=== PATIENT | male | born 1955 | race Caucasian/White ===

== ENCOUNTER → 2018-04-22 11:20 | Outpatient (CLI) | payer OTHER, SELFPAY ==
[2018-04-22 12:22] LABS: Add Manual Diff / Slide Review NO; Basophils Percent Auto 0.8 % (0-2); Eosinophils Percent Auto 2.7 % (2-4); Hematocrit 39.4 % (41-53); Lymphocytes Percent Auto 26.7 % (25-40); Mean Corpuscular HGB Conc 32.9 % (30-36); Mean Corpuscular Hemoglobin 29.2 PG (26-34); Mean Corpuscular Volume 88.7 fL (80-100); Monocytes Percent Auto 10.9 % (3-14); Neutrophils Absolute Auto 4500 /uL (3000-5900); Neutrophils Percent Auto 58.9 % (50-75); Platelet Count 321 X10^3/uL (150-400); Red Blood Cell Count 4.44 X10^6/uL (4.5-5.9); Red Cell Distribution Width 14.4 % (11.6-14.8); White Blood Cell Count 7.6 X10^3/uL (4.5-11.0)
[2018-04-22 12:54] LABS: Alanine Aminotransferase 24 IU/L (21-72); Albumin 4.1 g/dL (3.5-5.0); Albumin Globulin Ratio 1.3 (1.0-2.8); Alkaline Phosphatase 73 U/L (38-126); Aspartate Aminotransferase 30 IU/L (17-59); BUN Creatinine Ratio 14.4 (6-22); Bilirubin Total 0.6 mg/dL (0.2-1.3); Blood Urea Nitrogen 13 mg/dL (9-20); Calcium 9.1 mg/dL (8.4-10.2); Carbon Dioxide 31 mmol/L (22-32); Chloride 101 mmol/L (98-107); Estimated Glomerular Filt Rate > 60.0 mL/min (>60); Globulin 3.1 g/dL (1.7-4.1); Glucose 93 mg/dL (80-110); HEMOLYSIS < 15 (0-50); Potassium 4.3 mmol/L (3.4-5.1); Sodium 141 mmol/L (137-145); Total Protein 7.2 g/dL (6.3-8.2)
[2018-04-22 13:13] LABS: Thyroid Stimulating Hormone 2.56 uIU/mL (0.47-4.68)
== END ==
PROVIDERS: Family Provider Family Medicine; PCP Family Medicine; Visit Provider Internal Medicine
DX: I10 Essential (primary) hypertension (principal); R53.83 Other fatigue; H02.9 Unspecified disorder of eyelid
CPT/HCPCS: 36415; 80053; 84443; 85025; 87255

== ENCOUNTER → 2018-04-22 11:42 | Outpatient (CLI) | payer OTHER, SELFPAY ==
--- NOTE | 2018-04-22 11:43 | DI.RAD.S_ITS ---
PROCEDURE: XR CHEST 2V INDICATIONS: chest congestion TECHNIQUE: 2 views of the chest were acquired. COMPARISON: [facility], , CHEST 2 VIEW, 04/20/2016, 14:49. FINDINGS: Surgical changes and devices: None. Lungs and pleura: No pleural effusions or pneumothorax. Lungs are clear. Mediastinum: Mediastinal contours are normal. Heart size is normal. Bones and chest wall: No suspicious bony abnormalities. Soft tissues appear unremarkable. IMPRESSION: No acute cardiopulmonary disease. Dictated by: Amber Galeas M.D. on 04/22/2018 at 14:18 Approved by: Amber Galeas M.D. on 04/22/2018 at 14:18
== END ==
PROVIDERS: PCP Family Medicine; Visit Provider Internal Medicine
DX: R05 Cough (principal); R09.89 Other specified symptoms and signs involving the circulatory and respiratory systems
CPT/HCPCS: 36415; 71046; 80053; 84443; 85025; 87255

== ENCOUNTER → 2019-06-02 10:00 | Outpatient (CLI) | payer OTHER, SELFPAY ==
[2019-06-02 11:24] LABS: Cholesterol 131 mg/dL (140-199); HDL Cholesterol 43 mg/dL (40-60); LDL Cholesterol Calculated 66 mg/dL (<100); Triglycerides 111 mg/dL (35-150)
== END ==
PROVIDERS: Family Provider Family Medicine; PCP Family Medicine; Visit Provider Internal Medicine Cardiovascular Disease
DX: I25.10 Atherosclerotic heart disease of native coronary artery without angina pectoris (principal); I25.84 Coronary atherosclerosis due to calcified coronary lesion; I10 Essential (primary) hypertension
CPT/HCPCS: 36415; 80061

== ENCOUNTER → 2019-12-03 19:25 | Outpatient (CLI) | payer OTHER, SELFPAY ==
--- NOTE | 2019-12-03 19:29 | DI.RAD.S_ITS ---
PROCEDURE: XR FOOT RT MIN 3V INDICATIONS: r/o stress fracture TECHNIQUE: 3 views of the foot were acquired. COMPARISON: None. FINDINGS: Bones: No fractures or dislocations. No suspicious bony lesions. Plantar calcaneal spur. Diffuse mid foot and hindfoot joint degeneration. Focal marginal lucencies projecting at the first MTP joint. Chronic appearing ossicles projecting at the medial malleolus. Small calcific projecting along the plantar calcaneus appears chronic. Soft tissues: No tibiotalar joint effusion. Achilles tendon appears normal. IMPRESSION: No fracture. If the patient's symptoms do not improve recommend followup radiographs in 10 days to assess for healing sclerosis/occult injury. Or, MRI could be performed for further assessment Dictated by: Gustavo Dahl M.D. on 12/03/2019 at 20:24 Approved by: Gustavo Dahl M.D. on 12/03/2019 at 20:27
== END ==
PROVIDERS: Family Provider Family Medicine; PCP Family Medicine; Referring Provider Physician Assistant; Visit Provider Physician Assistant
DX: M79.671 Pain in right foot (principal); M19.071 Primary osteoarthritis, right ankle and foot; M77.31 Calcaneal spur, right foot
CPT/HCPCS: 73630

== ENCOUNTER → 2020-03-30 08:53 | Outpatient (CLI) | payer OTHER, SELFPAY ==
--- NOTE | 2020-03-30 09:41 | DI.RAD.S_ITS ---
PROCEDURE: XR CHEST 2V INDICATIONS: Cough, fever TECHNIQUE: 2 views of the chest were acquired. COMPARISON: [facility], CR, XR CHEST 2V, 04/22/2018, 11:41. FINDINGS: Surgical changes and devices: None. Lungs and pleura: Moderate-sized consolidative opacity in the right middle lobe. Mild ill-defined opacity in the left upper lobe. Trace right pleural effusion. No pneumothorax. Mediastinum: Fullness in the right hilar region which appears new. Heart size is normal. Bones and chest wall: No suspicious bony abnormalities. Soft tissues appear unremarkable. IMPRESSION: Consolidative opacity in the right middle lobe and ill-defined opacity in the left upper lobe. Findings most compatible with multifocal pneumonia. Fullness in the right hilar region. This could represent adenopathy. Consider CT scan of the chest with IV contrast for further evaluation of the mediastinum. Followup chest x-rays to resolution is recommended. Trace right pleural effusion. Dictated by: Zi Bowers M.D. on 03/30/2020 at 10:42 Approved by: Zi Bowers M.D. on 03/30/2020 at 10:45
[2020-03-30 10:08] LABS: Add Manual Diff / Slide Review NO; Basophils Absolute Auto 100 /uL (0-100); Basophils Percent Auto 0.6 % (0-2); Eosinophils Absolute Auto 0 /uL (0-450); Eosinophils Percent Auto 0.3 % (2-4); Hematocrit 31.5 % (41-53); Hemoglobin 10.9 g/dL (13.5-17.5); Lymphocytes Absolute Auto 600 /uL (1100-4500); Lymphocytes Percent Auto 5.9 % (25-40); Mean Corpuscular HGB Conc 34.5 % (30-36); Mean Corpuscular Hemoglobin 29.1 PG (26-34); Mean Corpuscular Volume 84.3 fL (80-100); Monocytes Absolute Auto 800 /uL (0-900); Monocytes Percent Auto 8.1 % (3-14); Neutrophils Absolute Auto 8800 /uL (1500-7000); Neutrophils Percent Auto 85.1 % (50-75); Platelet Count 281 X10^3/uL (150-400); Red Blood Cell Count 3.74 X10^6/uL (4.5-5.9); Red Cell Distribution Width 15.6 % (11.6-14.8); White Blood Cell Count 10.4 X10^3/uL (4.5-11.0)
[2020-03-30 10:52] LABS: Alanine Aminotransferase 22 IU/L (<50); Albumin 3.6 g/dL (3.5-5.0); Alkaline Phosphatase 112 U/L (38-126); Aspartate Aminotransferase 25 IU/L (17-59); BUN Creatinine Ratio 12.2 (6-22); Bilirubin Total 0.9 mg/dL (0.2-1.3); Blood Urea Nitrogen 11 mg/dL (9-20); Calcium 8.9 mg/dL (8.4-10.2); Carbon Dioxide 26 mmol/L (22-32); Chloride 103 mmol/L (98-107); Estimated Glomerular Filt Rate > 60.0 mL/min (>60); Globulin 3.6 g/dL (1.7-4.1); Glucose 132 mg/dL (80-110); HEMOLYSIS < 15 (0-50); Potassium 3.7 mmol/L (3.4-5.1); Sodium 137 mmol/L (137-145); Total Protein 7.2 g/dL (6.3-8.2)
[2020-03-30 11:21] LABS: TSH w/ Reflex to FT4 2.59 uIU/mL (0.47-4.68)
[2020-03-30 15:08] LABS: HEMOLYSIS < 15 (0-50); Iron 19 ug/dL (49-181)
[2020-03-30 15:18] LABS: Percent Iron Saturation 9 % (20-50); Total Iron Binding Capacity 217 ug/dL (261-462); Transferrin 144 mg/dL (206-381)
[2020-03-31 02:16] LABS: COVID19 Sendout Not Detected (Not Detect)
== END ==
PROVIDERS: Family Provider Family Medicine; PCP Family Medicine; Referring Provider Registered Nurse; Visit Provider Registered Nurse
DX: R05 Cough (principal); R50.9 Fever, unspecified; R53.83 Other fatigue; D64.9 Anemia, unspecified
CPT/HCPCS: 36415; 71046; 80053; 83540; 83550; 84443; 85025; 87635

== ENCOUNTER → 2020-03-30 14:35 | Outpatient (CLI) | payer OTHER, SELFPAY ==
--- NOTE | 2020-03-30 14:37 | DI.CT.S_ITS ---
PROCEDURE: CT CHEST W CON INDICATIONS: Fever, cough, abnormal chest xray TECHNIQUE: After the administration of intravenous contrast, 5 mm thick sections acquired from the pulmonary apices to the posterior costophrenic angles. 1 mm axial lung, 5 mm thick coronal and sagittal reformats and 7 mm axial MIP were acquired. For radiation dose reduction, the following was used: automated exposure control, adjustment of mA and/or kV according to patient size. COMPARISON: [facility], CR, XR CHEST 2V, 04/22/2018, 11:41. [facility], CR, ELBOW 3+ VIEWS RIGHT, 10/30/2017, 16:31. [facility], CR, CHEST 2 VIEW, 04/20/2016, 14:49. [facility], CR, XR CHEST 2V, 03/30/2020, 9:35. FINDINGS: Image quality: Excellent. Lungs and pleura: There are bilateral acute appearing areas of airspace consolidation consistent with patchy bilateral pneumonia, greater on the right than the left. The pneumonia pattern is most prominent at the lateral segment right middle lobe and also involves the medial segment of that lobe, a slight degree of the posterior right lower lobe, a mild degree of the inferior aspect of the left lower lobe, and portions of the left upper lobe near the lingular segment.. No pleural effusions or pneumothorax. Central and peripheral airways are patent and normal in caliber. Mediastinum: Heart size is normal. No pericardial effusion. No mediastinal or hilar adenopathy by size criteria. Thoracic aorta and central pulmonary arteries are normal in size. Esophagus is normal in caliber. No hiatal hernia. Bones and chest wall: No suspicious bony lesions. No vertebral body compression fractures. No axillary or supraclavicular adenopathy by size criteria. Thyroid gland is normal where well seen. Abdomen: Visualized upper abdominal solid organs appear normal. Upper abdominal bowel loops are normal in caliber. IMPRESSION: Bilateral patchy pneumonia, right greater than left, multilobar. No central mass lesion or evidence of pleural effusion is found. No mediastinal or hilar adenopathy is seen. Etiology (bacterial versus viral) is not established by this study. Dictated by: Anthony Palma M.D. on 03/30/2020 at 14:04 Approved by: Anthony Palma M.D. on 03/30/2020 at 14:09
== END ==
PROVIDERS: Family Provider Family Medicine; PCP Family Medicine; Referring Provider Registered Nurse; Visit Provider Registered Nurse
DX: J18.9 Pneumonia, unspecified organism (principal); R93.89 Abnormal findings on diagnostic imaging of other specified body structures; R50.9 Fever, unspecified; R05 Cough; R53.83 Other fatigue; D64.9 Anemia, unspecified
CPT/HCPCS: 36415; 71046; 71260; 80053; 83540; 83550; 84443; 85025; 87635; Q9967

== ENCOUNTER → 2020-04-08 12:33 | Outpatient (CLI) | payer OTHER, SELFPAY ==
--- NOTE | 2020-04-08 12:35 | DI.RAD.S_ITS ---
PROCEDURE: XR CHEST 2V INDICATIONS: f/u pneumonia, persistent cough TECHNIQUE: 2 views of the chest were acquired. COMPARISON: [facility], CT, CT CHEST W CON, 03/30/2020, 14:36. [facility], CR, XR CHEST 2V, 04/22/2018, 11:41. [facility], CR, CHEST 2 VIEW, 04/20/2016, 14:49. [facility], CR, XR CHEST 2V, 03/30/2020, 9:35. FINDINGS: Surgical changes and devices: None. Lungs and pleura: Patchy consolidative left perihilar and right basilar opacities are present. There is improved aeration of the right lung base since 03/30/20. Possible mild improvement in the left perihilar region as well No pleural effusions or pneumothorax. Mediastinum: Mediastinal contours are normal. Heart size is normal. Bones and chest wall: No suspicious bony abnormalities. Soft tissues appear unremarkable. IMPRESSION: Bilateral pneumonia with mildly improved appearance since 03/30/20. No new focal consolidation Dictated by: uGstavo Dahl M.D. on 04/08/2020 at 14:58 Approved by: Gustavo Dahl M.D. on 04/08/2020 at 15:00
== END ==
PROVIDERS: Family Provider Family Medicine; PCP Family Medicine; Referring Provider Family Medicine; Visit Provider Family Medicine
DX: J18.9 Pneumonia, unspecified organism (principal); R05 Cough
CPT/HCPCS: 71046

== ENCOUNTER → 2020-04-18 17:01 | Outpatient (ROUT) | payer OTHER, SELFPAY ==
[2020-04-20 19:06] LABS: COVID19 Sendout Not Detected (Not Detect)
== END ==
PROVIDERS: Family Provider Family Medicine; PCP Family Medicine; Visit Provider Physician Assistant
DX: Z01.818 Encounter for other preprocedural examination (principal)
CPT/HCPCS: 87635

== ENCOUNTER 2020-04-24 13:15 | Emergency (ER) | payer OTHER, SELFPAY ==
[2020-04-24 13:28] VITALS: PULSE 97; RESP 13; O2SAT 100
[2020-04-24 13:30] VITALS: PULSE 98; RESP 24; O2SAT 100
[2020-04-24 13:31] VITALS: BP 173/99; PULSE 104; RESP 26; TEMP 36.6; O2SAT 99; BMI 27.1
--- NOTE | 2020-04-24 13:32 | ED.SOB ---
HPI - SOB/Dyspnea <Rochelle PruittAILEEN - Last Filed: 04/24/20 20:50> General Chief Complaint: Shortness of Breath/Dyspnea Stated Complaint: Trouble breathing can't catch his breath Time Seen by Provider: 04/24/20 13:21 History of Present Illness HPI Narrative: 64yo male with a history of non-Hodgkin's lymphoma, WPW which resolved with ablation, and recent pneumonia, presents to the emergency department for worsening shortness of breath for the past 2-3 days. Patient states he had a course of azithromycin and then completed course of amoxicillin and doxycycline, after completion the antibiotics about a week ago he was feeling better. However, he noticed increasing shortness of breath that started gradually over the past 2-3 days and has been worsening. He denies any fevers, chest pain, dizziness, abdominal pain, blood in his stool, nausea, vomiting, diarrhea, or any other concerns. Patient states they found incidental anemia and he was scheduled to have an endoscopy and colonoscopy yesterday but did not undergo this procedure as his insurance did not approve it at this time. Patient states he has been taking iron supplements. Upon review of previous visit notes from last month, patient has had ?respiratory issues ?since 2014 and has been taking Xyzal, patient was also referred to [facility] in [place]. Related Data Home Medications Medication Instructions Recorded Confirmed cholecalciferol (vitamin D3) 2 - 3 tab PO Q DAY #0 09/26/17 04/08/20 [Vitamin D3] ibuprofen-diphenhydramine HCl 1 cap PO HSP PRN #0 09/26/17 04/08/20 [Ibuprofen PM] multivitamin [Multiple Vitamins] 1 tab PO QDAY #0 09/26/17 04/08/20 Previous Rx's Medication Instructions Recorded diltiazem HCl 240 mg 240 mg PO Q DAY #90 cap 02/05/19 capsule,extended release 24 hr acyclovir 400 mg tablet 400 mg PO BID #180 tab 06/25/19 amoxicillin-potassium clavulanate 2 tab PO BID #28 tab 04/08/20 1,000 mg-62.5 mg tablet,ext.rel 12hr doxycycline hyclate 100 mg capsule 100 mg PO BID #14 cap 04/08/20 prednisone 50 mg PO DAILY 4 Days #4 tab 04/24/20 Allergies Allergy/AdvReac Type Severity Reaction Status Date / Time No Known Drug Allergies Allergy Verified 04/24/20 13:36 Review of Systems <AILEEN Mendosa - Last Filed: 04/24/20 20:50> Review of Systems Narrative: REVIEW OF SYSTEMS: GENERAL: Denies fevers. HENT: No head trauma or hearing loss. EYES: No vision changes. CARDIOVASCULAR: No chest pain or syncope. RESPIRATORY: Reports shortness of breath and continue dry cough, see HPI. GASTROINTESTINAL: No nausea, vomiting, diarrhea, or constipation. MUSCULOSKELETAL: No weakness or injury. INTEGUMENTARY: No rash, lesions, or pruritus. NEURO: No memory loss, or confusion. Patient History <AILEEN Mendosa - Last Filed: 04/24/20 20:50> Medical History Anxiety (Chronic 2015) Chronic cough (Chronic) Collapsed lung (Resolved 1974) Colon polyps (Resolved ~2008) Depression (Chronic 2015) Fracture of right upper extremity (Resolved ~1964) Hayfever (Chronic) Herpes (Chronic ~1979) Hypertension (Chronic 2005) Kidney stones (Resolved 1991) Measles (Resolved) Mumps (Resolved) NHL (non-Hodgkin's lymphoma) (Resolved 1999) Right foot pain (Acute) Skin problem (Chronic 2004) Sleep apnea (Chronic) WPW (Sxriy-Hcwmmrncm-Ygzde syndrome) (Chronic 2009) Surgical History Anesthesia (Resolved) History of cardiac radiofrequency ablation (RFA) (Resolved 2009) History of colonoscopy (Resolved ~2008) History of surgery on arm (Resolved ~1964) Status post appendectomy (Resolved ~1959) Family History Child Cancer Brain cancer Father Cancer Cancer of jaw bone Grandfather Cancer Brain cancer Grandmother Cancer Grandmother Heart disease Heart attack Grandfather No problems noted. Mother Stroke Social History marital status: unknown household members: none occupational status: employed Smoking Status: Never smoker alcohol intake: current substance use type: does not use Smoking Status: Never smoker Exam <AILEEN Mendosa - Last Filed: 04/24/20 20:50> Initial Vital Signs Initial Vital Signs: Vital Signs Pulse Rate 97 H 04/24/20 13:28 Respiratory Rate 13 04/24/20 13:28 Pulse Oximetry 100 04/24/20 13:28 PHYSICAL EXAMINATION: GENERAL: Well groomed, alert, and cooperative. Answers questions promptly and appropriately. Vital signs noted. HENT: Normocephalic, atraumatic. EYES: Conjunctiva pink, sclera white, no periorbital swelling. No discharge. CHEST: Normal to inspection and without deformities. CARDIOVASCULAR: S1 and S2 sounds normal. Regular rate and rhythm, no murmurs, clicks, or bruits. RESPIRATORY: Normal respiratory rate, trachea midline, airway patent. No stridor, nasal flaring or accessory muscle use. Able to speak in full sentences. Lungs are clear in all sanchez without wheeze, rhonchi, or crackles. Occasional dry cough heard throughout examination. Patient initially appears to be breathing quickly while nurse's describing story, however, patient is able to talk in full sentences once he starts to describe his history. MUSCULOSKELETAL: Normal gait and coordination. Equal tone and mass bilaterally. EXTREMITIES: Moves all extremities. SKIN: Warm, dry, soft, appropriate color for ethnicity. No lesions, rashes, or wounds to visualized areas. NEURO: Alert and Oriented X 3. Good coordination. No ataxia or cognitive issues. PSYCH: Appropriate affect and mood. <Lucille Greenberg DO - Last Filed: 04/25/20 07:24> Initial Vital Signs Initial Vital Signs: Vital Signs Pulse Rate 97 H 04/24/20 13:28 Respiratory Rate 13 04/24/20 13:28 Pulse Oximetry 100 04/24/20 13:28 Scores <AILEEN Mendosa - Last Filed: 04/24/20 20:50> PERC Score Age greater than or equal to 50 years: Yes Heart rate greater than or equal to 100 bpm: Yes Room Air O2 Sat less than 95%: No Unilateral leg swelling: No Recent trauma or surgery: No Hemoptysis: No Prior PE or DVT: No Hormone Use: No Total PERC Score: 2 Wells' Criteria for PE Clinical signs and symptoms of DVT: Yes PE is #1 Dx or equally likely: Yes Heart rate > 100: Yes Immobilization at least 3 days or surg in previous 4 weeks: No History of PE or DVT: No Hemoptysis: No Malignancy w/Treatment within 6 months or palliative: No Wells' PE Score total: 7.5 Course <Rochelle HiAILEEN pacheco - Last Filed: 04/24/20 20:50> Course Course Narrative: 1400: CT angio PE study ordered due to high well's criteria score, tachycardia within is a presentation, and shortness of breath, as well as clear lung examination and lack of fever which increases concerns for PE 1546: Patient reported all improvement after administration of albuterol inhaler. Is able to ambulate around the department without decreasing saturations, did note some dyspnea with exertion but was able to talk the entire time while walking at adequate pace. Orders Ordered: Discontinued Medications Albuterol (Ventolin Hfa) 2 puff INH NOW ONE Stop: 04/24/20 14:51 Last Admin: 04/24/20 14:54 Dose: Not Given Documented by: LEATHA Albuterol (Ventolin Hfa Prepack) 1 box MISC SEEINSTR ONE Stop: 04/24/20 14:54 Last Admin: 04/24/20 14:57 Dose: 1 box Documented by: LEATHA Sodium Chloride (Normal Saline 0.9%) 1,000 mls @ 1,000 mls/hr IV BOLUS PRN PRN Reason: Fluid replacement Last Infusion: 04/24/20 15:52 Dose: 0 mls/hr Documented by: Admin: 04/24/20 13:41 Dose: 1,000 mls/hr Documented by: ZEKE Prednisone (Deltasone) 40 mg PO NOW ONE Stop: 04/24/20 15:46 Last Admin: 04/24/20 15:52 Dose: 40 mg Documented by: LEDA Consultations Consultation #1: Patient staffed with Dr. Greenberg, discussed test, test results, plan of care. Vital Signs Vital signs: Vital Signs - 8 hr 04/24/20 13:28 04/24/20 13:30 04/24/20 13:31 Temperature 97.8 F Pulse Rate 97 H 98 H 104 H Respiratory Rate 13 24 26 H Blood Pressure 173/99 H Pulse Oximetry 100 100 99 04/24/20 15:06 04/24/20 15:52 04/24/20 16:19 Temperature 98.3 F Pulse Rate 99 H 92 H Respiratory Rate 20 18 Blood Pressure 137/76 Pulse Oximetry 99 98 <Lucille Greenberg DO - Last Filed: 04/25/20 07:24> Orders Ordered: Discontinued Medications Albuterol (Ventolin Hfa) 2 puff INH NOW ONE Stop: 04/24/20 14:51 Last Admin: 04/24/20 14:54 Dose: Not Given Documented by: LEATHA Albuterol (Ventolin Hfa Prepack) 1 box MISC SEEINSTR ONE Stop: 04/24/20 14:54 Last Admin: 04/24/20 14:57 Dose: 1 box Documented by: LEATHA Sodium Chloride (Normal Saline 0.9%) 1,000 mls @ 1,000 mls/hr IV BOLUS PRN PRN Reason: Fluid replacement Last Infusion: 04/24/20 15:52 Dose: 0 mls/hr Documented by: Admin: 04/24/20 13:41 Dose: 1,000 mls/hr Documented by: ZEKE Prednisone (Deltasone) 40 mg PO NOW ONE Stop: 04/24/20 15:46 Last Admin: 04/24/20 15:52 Dose: 40 mg Documented by: LEDA Vital Signs Vital signs: Vital Signs - 8 hr 04/24/20 13:28 04/24/20 13:30 04/24/20 13:31 Temperature 97.8 F Pulse Rate 97 H 98 H 104 H Respiratory Rate 13 24 26 H Blood Pressure 173/99 H Pulse Oximetry 100 100 99 04/24/20 15:06 04/24/20 15:52 04/24/20 16:19 Temperature 98.3 F Pulse Rate 99 H 92 H Respiratory Rate 20 18 Blood Pressure 137/76 Pulse Oximetry 99 98 MDM - SOB/Dyspnea <AILEEN Mendosa - Last Filed: 04/24/20 20:50> Medical Records Attestation: I reviewed the patient's medical records. Lab Data Attestation: I reviewed the patient's lab results. Result diagrams: 04/24/20 13:30 04/24/20 13:30 Labs: Lab Results 04/24/20 04/24/20 04/24/20 Range/Units 13:30 13:30 13:30 WBC 8.3 (4.5-11.0) X10^3/uL RBC 4.05 L (4.5-5.9) X10^6/uL Hgb 11.1 L (13.5-17.5) g/dL Hct 33.9 L (41-53) % MCV 83.6 (80-100) fL MCH 27.4 (26-34) PG MCHC 32.8 (30-36) % RDW 16.4 H (11.6-14.8) % Plt Count 361 (150-400) X10^3/uL Neut % (Auto) 48.4 L (50-75) % Lymph % (Auto) 36.3 (25-40) % [place] % (Auto) 13.1 (3-14) % Eos % (Auto) 0.9 L (2-4) % Baso % (Auto) 1.3 (0-2) % Neut # (Auto) 4000 (0402-9184) /uL Lymph # (Auto) 3000 (1782-6479) /uL [place] # (Auto) 1100 H (0-900) /uL Eos # (Auto) 100 (0-450) /uL Baso # (Auto) 100 (0-100) /uL Sodium (137-145) mmol/L Potassium (3.4-5.1) mmol/L Chloride (98-107) mmol/L Carbon Dioxide (22-32) mmol/L BUN (9-20) mg/dL Creatinine (0.66-1.25) mg/dL Estimated GFR (>60) mL/min BUN/Creatinine Ratio (6-22) Glucose (80-110) mg/dL Lactate (0.7-2.1) mmol/L Calcium (8.4-10.2) mg/dL Magnesium 2.0 (1.6-2.3) mg/dL Total Bilirubin (0.2-1.3) mg/dL AST (17-59) IU/L ALT (<50) IU/L Alkaline Phosphatase (38-126) U/L Total Creatine Kinase 34 L (55-170) U/L CK-MB (CK-2) TNP CK-MB (CK-2) Rel Index TNP Troponin I < 0.012 (0.01-0.034) ng/mL Total Protein (6.3-8.2) g/dL Albumin (3.5-5.0) g/dL Globulin (1.7-4.1) g/dL Albumin/Globulin Ratio (1.0-2.8) Procalcitonin < 0.05 (<0.5) ng/mL 04/24/20 04/24/20 Range/Units 13:30 13:30 WBC (4.5-11.0) X10^3/uL RBC (4.5-5.9) X10^6/uL Hgb (13.5-17.5) g/dL Hct (41-53) % MCV (80-100) fL MCH (26-34) PG MCHC (30-36) % RDW (11.6-14.8) % Plt Count (150-400) X10^3/uL Neut % (Auto) (50-75) % Lymph % (Auto) (25-40) % [place] % (Auto) (3-14) % Eos % (Auto) (2-4) % Baso % (Auto) (0-2) % Neut # (Auto) (1391-8997) /uL Lymph # (Auto) (8514-1363) /uL [place] # (Auto) (0-900) /uL Eos # (Auto) (0-450) /uL Baso # (Auto) (0-100) /uL Sodium 138 (137-145) mmol/L Potassium 4.0 (3.4-5.1) mmol/L Chloride 102 (98-107) mmol/L Carbon Dioxide 27 (22-32) mmol/L BUN 13 (9-20) mg/dL Creatinine 0.79 (0.66-1.25) mg/dL Estimated GFR > 60.0 (>60) mL/min BUN/Creatinine Ratio 16.5 (6-22) Glucose 128 H (80-110) mg/dL Lactate 1.5 (0.7-2.1) mmol/L Calcium 9.9 (8.4-10.2) mg/dL Magnesium (1.6-2.3) mg/dL Total Bilirubin 0.7 (0.2-1.3) mg/dL AST 25 (17-59) IU/L ALT 16 (<50) IU/L Alkaline Phosphatase 105 (38-126) U/L Total Creatine Kinase (55-170) U/L CK-MB (CK-2) CK-MB (CK-2) Rel Index Troponin I (0.01-0.034) ng/mL Total Protein 7.8 (6.3-8.2) g/dL Albumin 4.2 (3.5-5.0) g/dL Globulin 3.6 (1.7-4.1) g/dL Albumin/Globulin Ratio 1.2 (1.0-2.8) Procalcitonin (<0.5) ng/mL Urine Dip Bedside Urine Glucose Negative Bedside Urine Bilirubin - Negative Bedside Urine Ketone - Negative Urine Specific [place] 1.010 Bedside Urine Occult Blood - Negative Bedside Urine pH 8.0 Bedside Urine Protein - Negative Bedside Urine Urobilinogen - Negative Bedside Urine Nitrite - Negative Bedside Urine Leukocytes - Negative Esterase Imaging Data CTA: Radiologist's Impression: [address] [address] [address] Scan Report Signed Patient: Rahul Tabares LMR#: [id number] : 7Acct:[id number] Age/Sex: 64 / MDate of Service: 04/24/20 Loc: ED Accession Number: [id number] Procedure: CT angio chest PE protocol Ordering Provider: Rochelle Pruitt PROCEDURE: CT ANGIO CHEST PE PROTOCOL INDICATIONS: SOB, non-Hodgkin's TECHNIQUE: After the administration of intravenous contrast, 2 mm thick sections acquired from the pulmonary apices to the posterior costophrenic angles. 3-dimensional maximum intensity projection (MIP) coronal and sagittal reformats were then acquired through the thorax. For radiation dose reduction, the following was used: automated exposure control, adjustment of mA and/or kV according to patient size. COMPARISON: Merged With [facility], CT, CT CHEST W CON, 03/30/2020, 14:36. FINDINGS: Image quality: Diagnostic Pulmonary arteries: Pulmonary arteries are normal in size, and demonstrate no intraluminal filling defects to suggest central pulmonary embolism. Lungs and pleura: The large area of consolidation within the right middle lobe has nearly completely resolved with a small amount of residual consolidation present. The previously seen area of consolidation within the left upper lobe has significantly decreased in size with minimal scarring and or tree-in-bud nodularity present remaining that extends along the anterolateral aspect of the left upper lobe into the lingula. No new areas of consolidation are identified. There is no lung mass. Mediastinum: Heart size is normal, without pericardial effusion. Thoracic aorta is normal in caliber and enhancement. Esophagus is normal in caliber, without hiatal hernia. Multiple subcentimeter lymph nodes are evident in the bilateral axillary regions. Similar sized lymph nodes are seen within the mediastinal and hilar locations, as well. These lymph nodes are smaller in size when compared to the prior exam. Bones and chest wall: No suspicious bony lesions. Ribs and thoracic spine appear intact throughout. Thyroid gland is not enlarged or adequately characterized. No axillary or supraclavicular adenopathy. Abdomen: There are small to moderate-sized lymph nodes identified within the upper retroperitoneum and karan caval region, which are of uncertain clinical significance. These have not significantly changed since the previous examination. There is a small focus of low attenuation identified involving the right hepatic lobe that probably represents a cyst, but is not adequately characterized. Otherwise, the included portions of the upper abdomen are within normal limits. IMPRESSION: 1. No evidence of pulmonary emboli. 2. Resolving consolidation within at the right middle lobe and left upper lobe likely represents resolving pneumonia. No new areas of consolidation are evident. 3. No lung masses. 4. Numerous subcentimeter lymph nodes within the axillary regions and mediastinum are of uncertain clinical significance and have decreased in size since the prior study. There also are mildly prominent lymph nodes evident within the upper retroperitoneum and portacaval region, which are unchanged. Dictated by: Reid Christopher M.D. on 04/24/2020 at 13:30 Approved by: Reid Christopher M.D. on 04/24/2020 at 13:38 Chest x-ray: Radiologist's Impression: [address] [address] XRay Report Signed Patient: Rahul Tabares LMR#: [id number] : 7Acct:[id number] Age/Sex: 64 / MDate of Service: 04/24/20 Loc: ED Accession Number: [id number] Procedure: XR chest 1V Ordering Provider: Rochelle Pruitt PROCEDURE: XR CHEST 1V INDICATIONS: Shortness of breath TECHNIQUE: One view of the chest was acquired. COMPARISON: Merged With [facility], CT, CT CHEST W CON, 03/30/2020, 14:36. Merged With [facility], CR, XR CHEST 2V, 04/08/2020, 12:26. FINDINGS: Surgical changes and devices: None. Lungs and pleura: There is an area of consolidation identified at the right lung base, which is smaller on the current study, but remains present. Interstitial prominence within the perihilar regions is present. There is no effusion or pneumothorax. Mediastinum: Mediastinal contours appear normal. Heart size is normal. Bones and chest wall: No suspicious bony lesions. Overlying soft tissues appear unremarkable. IMPRESSION: Right basilar consolidation is less conspicuous on the current exam and may represent resolving atelectasis. Superimposed new infection cannot be excluded. Dictated by: Reid Christopher M.D. on 04/24/2020 at 13:21 Approved by: Reid Christopher M.D. on 04/24/2020 at 13:25 ECG Data Interpretation: 1339: Sinus rhythm, rate 88, MA interval 142, QTC 442. No ST elevation or ST depression. T-wave inversion noted in V1. No ectopy. EKG also viewed by Dr. Greenberg per protocol. MDM Narrative Medical decision making narrative: 64yo male with history of non-Hodgkin's, seasonal allergies, and resolving pneumonia, presents emergency department for worsening shortness of breath over the past few days. Differential includes resolving pneumonia versus reactive airway disease as patient reports shortness of breath that is worse with activity, minor relief with albuterol inhaler, ambulatory trial without significant dyspnea or decreased oxygen saturation. Less likely worsening pneumonia due to lack of clinical symptoms such as fever, elevated WBC, worsening productive cough, or feelings of malaise. Less likely cardiac in etiology due to negative EKG, negative troponin, non-remarkable cardiac silhouette on chest x-ray. Less likely PE as CTA is negative for pulmonary embolism. Patient was given an albuterol inhaler and steroids given recent allergies and shortness of breath. He was encouraged to follow up with his primary care provider in 1-2 weeks for further evaluation. Strict return precautions given for new or worsening symptoms. Patient agreed to plan of care verbalized understanding. <Lucille Greenberg, DO - Last Filed: 04/25/20 07:24> Lab Data Attestation: I reviewed the patient's lab results. Labs: Lab Results 04/24/20 04/24/20 04/24/20 Range/Units 13:30 13:30 13:30 WBC 8.3 (4.5-11.0) X10^3/uL RBC 4.05 L (4.5-5.9) X10^6/uL Hgb 11.1 L (13.5-17.5) g/dL Hct 33.9 L (41-53) % MCV 83.6 (80-100) fL MCH 27.4 (26-34) PG MCHC 32.8 (30-36) % RDW 16.4 H (11.6-14.8) % Plt Count 361 (150-400) X10^3/uL Neut % (Auto) 48.4 L (50-75) % Lymph % (Auto) 36.3 (25-40) % [place] % (Auto) 13.1 (3-14) % Eos % (Auto) 0.9 L (2-4) % Baso % (Auto) 1.3 (0-2) % Neut # (Auto) 4000 (9562-9697) /uL Lymph # (Auto) 3000 (0378-3743) /uL [place] # (Auto) 1100 H (0-900) /uL Eos # (Auto) 100 (0-450) /uL Baso # (Auto) 100 (0-100) /uL Sodium (137-145) mmol/L Potassium (3.4-5.1) mmol/L Chloride (98-107) mmol/L Carbon Dioxide (22-32) mmol/L BUN (9-20) mg/dL Creatinine (0.66-1.25) mg/dL Estimated GFR (>60) mL/min BUN/Creatinine Ratio (6-22) Glucose (80-110) mg/dL Lactate (0.7-2.1) mmol/L Calcium (8.4-10.2) mg/dL Magnesium 2.0 (1.6-2.3) mg/dL Total Bilirubin (0.2-1.3) mg/dL AST (17-59) IU/L ALT (<50) IU/L Alkaline Phosphatase (38-126) U/L Total Creatine Kinase 34 L (55-170) U/L CK-MB (CK-2) TNP CK-MB (CK-2) Rel Index TNP Troponin I < 0.012 (0.01-0.034) ng/mL Total Protein (6.3-8.2) g/dL Albumin (3.5-5.0) g/dL Globulin (1.7-4.1) g/dL Albumin/Globulin Ratio (1.0-2.8) Procalcitonin < 0.05 (<0.5) ng/mL 04/24/20 04/24/20 Range/Units 13:30 13:30 WBC (4.5-11.0) X10^3/uL RBC (4.5-5.9) X10^6/uL Hgb (13.5-17.5) g/dL Hct (41-53) % MCV (80-100) fL MCH (26-34) PG MCHC (30-36) % RDW (11.6-14.8) % Plt Count (150-400) X10^3/uL Neut % (Auto) (50-75) % Lymph % (Auto) (25-40) % [place] % (Auto) (3-14) % Eos % (Auto) (2-4) % Baso % (Auto) (0-2) % Neut # (Auto) (8586-8010) /uL Lymph # (Auto) (5873-2449) /uL [place] # (Auto) (0-900) /uL Eos # (Auto) (0-450) /uL Baso # (Auto) (0-100) /uL Sodium 138 (137-145) mmol/L Potassium 4.0 (3.4-5.1) mmol/L Chloride 102 (98-107) mmol/L Carbon Dioxide 27 (22-32) mmol/L BUN 13 (9-20) mg/dL Creatinine 0.79 (0.66-1.25) mg/dL Estimated GFR > 60.0 (>60) mL/min BUN/Creatinine Ratio 16.5 (6-22) Glucose 128 H (80-110) mg/dL Lactate 1.5 (0.7-2.1) mmol/L Calcium 9.9 (8.4-10.2) mg/dL Magnesium (1.6-2.3) mg/dL Total Bilirubin 0.7 (0.2-1.3) mg/dL AST 25 (17-59) IU/L ALT 16 (<50) IU/L Alkaline Phosphatase 105 (38-126) U/L Total Creatine Kinase (55-170) U/L CK-MB (CK-2) CK-MB (CK-2) Rel Index Troponin I (0.01-0.034) ng/mL Total Protein 7.8 (6.3-8.2) g/dL Albumin 4.2 (3.5-5.0) g/dL Globulin 3.6 (1.7-4.1) g/dL Albumin/Globulin Ratio 1.2 (1.0-2.8) Procalcitonin (<0.5) ng/mL Urine Dip Bedside Urine Glucose Negative Bedside Urine Bilirubin - Negative Bedside Urine Ketone - Negative Urine Specific [place] 1.010 Bedside Urine Occult Blood - Negative Bedside Urine pH 8.0 Bedside Urine Protein - Negative Bedside Urine Urobilinogen - Negative Bedside Urine Nitrite - Negative Bedside Urine Leukocytes - Negative Esterase ECG Data Attestation: I personally reviewed and interpreted this ECG as follows: Prior ECG tracings: not available for review Interpretation: Normal sinus rhythm rate 87 p.r. interval 142 QRS [address] elevation depression or T-wave inversion Discharge Plan Departure Patient Disposition: Home Clinical Impression: Mild intermittent reactive airway disease Discharge Date/Time: 04/24/20 16:16 Instructions: DI for Reactive Airway Disease-Adult Activity Restrictions/Additional Instructions: Thank you for entrusting me with your care today. As discussed, your chest x-ray and CT showed resolving pneumonia in your right middle and left upper lobes of your lungs. No antibiotics are indicated at this time. No pulmonary emboli/blood clots. Lymph nodes that appeared to have been decrease in size from prior study are noted and your axillary regions (armpits), lymph nodes that are unchanged from prior study noted in your abdominal area. I suspect your shortness of breath with activity is related to the resolving pneumonia and or a small component of reactive airway disease. I have given you an inhaler, use this as needed for shortness of breath or cough. I have also given you steroid to take for the next 5 days which will help with shortness of breath. You may continue to have a dry cough for the next few weeks. Your prescription was sent to [facility] in [place]. Is important that you follow-up with your primary care provider in 1-2 weeks for further evaluation and continue monitoring and treatment of your condition. Return to the emergency department for any new or worsening symptoms such as severe chest pain, shortness of breath, syncope, dizziness, high fevers, or any other concerns. Prescriptions: New prednisone 50 mg tablet 50 mg PO DAILY 4 Days Qty: 4 RF: 0 No Action multivitamin [Multiple Vitamins] 1 EACH tablet 1 tab PO QDAY Qty: 0 RF: 0 cholecalciferol (vitamin D3) [Vitamin D3] 2,000 UNIT capsule 2 - 3 tab PO Q DAY Qty: 0 RF: 0 ibuprofen-diphenhydramine HCl [Ibuprofen PM] 200 MG/25 MG capsule 1 cap PO HSP PRNQty: 0 RF: 0 diltiazem HCl 240 mg capsule,extended release 24hr 240 mg PO Q DAY Qty: 90 RF: 1 acyclovir 400 mg tablet 400 mg PO BID Qty: 180 RF: 1 amoxicillin-pot clavulanate 1,000-62.5 mg tablet extended release 12 hr 2 tab PO BID Qty: 28 RF: 0 doxycycline hyclate 100 mg capsule 100 mg PO BID Qty: 14 RF: 0 Referrals: Laura Lackey MD [Primary Care Provider] - <Lucille Greenberg DO - Last Filed: 04/25/20 07:24> Cosign ED Attending Cosignature Attestation: I was immediately available in the department for consultation. Documentation has been reviewed. I agree with assessment and plan.
[2020-04-24] MEDS: SODIUM CHLORIDE 0.9% 1,000 ML 1000 ML IV (13:41)
[2020-04-24 13:47] LABS: Lactate (Lactic Acid) 1.5 mmol/L (0.7-2.1)
[2020-04-24 13:51] LABS: Creatine Kinase 34 U/L (55-170)
[2020-04-24 13:52] LABS: Alanine Aminotransferase 16 IU/L (<50); Albumin 4.2 g/dL (3.5-5.0); Albumin Globulin Ratio 1.2 (1.0-2.8); Alkaline Phosphatase 105 U/L (38-126); Aspartate Aminotransferase 25 IU/L (17-59); BUN Creatinine Ratio 16.5 (6-22); Bilirubin Total 0.7 mg/dL (0.2-1.3); Blood Urea Nitrogen 13 mg/dL (9-20); Calcium 9.9 mg/dL (8.4-10.2); Carbon Dioxide 27 mmol/L (22-32); Chloride 102 mmol/L (98-107); Estimated Glomerular Filt Rate > 60.0 mL/min (>60); Globulin 3.6 g/dL (1.7-4.1); Glucose 128 mg/dL (80-110); HEMOLYSIS 23 (0-50); Sodium 138 mmol/L (137-145); Total Protein 7.8 g/dL (6.3-8.2)
--- NOTE | 2020-04-24 13:54 | DI.CT.S_ITS ---
PROCEDURE: CT ANGIO CHEST PE PROTOCOL INDICATIONS: SOB, non-Hodgkin's TECHNIQUE: After the administration of intravenous contrast, 2 mm thick sections acquired from the pulmonary apices to the posterior costophrenic angles. 3-dimensional maximum intensity projection (MIP) coronal and sagittal reformats were then acquired through the thorax. For radiation dose reduction, the following was used: automated exposure control, adjustment of mA and/or kV according to patient size. COMPARISON: [facility], CT, CT CHEST W CON, 03/30/2020, 14:36. FINDINGS: Image quality: Diagnostic Pulmonary arteries: Pulmonary arteries are normal in size, and demonstrate no intraluminal filling defects to suggest central pulmonary embolism. Lungs and pleura: The large area of consolidation within the right middle lobe has nearly completely resolved with a small amount of residual consolidation present. The previously seen area of consolidation within the left upper lobe has significantly decreased in size with minimal scarring and or tree-in-bud nodularity present remaining that extends along the anterolateral aspect of the left upper lobe into the lingula. No new areas of consolidation are identified. There is no lung mass. Mediastinum: Heart size is normal, without pericardial effusion. Thoracic aorta is normal in caliber and enhancement. Esophagus is normal in caliber, without hiatal hernia. Multiple subcentimeter lymph nodes are evident in the bilateral axillary regions. Similar sized lymph nodes are seen within the mediastinal and hilar locations, as well. These lymph nodes are smaller in size when compared to the prior exam. Bones and chest wall: No suspicious bony lesions. Ribs and thoracic spine appear intact throughout. Thyroid gland is not enlarged or adequately characterized. No axillary or supraclavicular adenopathy. Abdomen: There are small to moderate-sized lymph nodes identified within the upper retroperitoneum and karan caval region, which are of uncertain clinical significance. These have not significantly changed since the previous examination. There is a small focus of low attenuation identified involving the right hepatic lobe that probably represents a cyst, but is not adequately characterized. Otherwise, the included portions of the upper abdomen are within normal limits. IMPRESSION: 1. No evidence of pulmonary emboli. 2. Resolving consolidation within at the right middle lobe and left upper lobe likely represents resolving pneumonia. No new areas of consolidation are evident. 3. No lung masses. 4. Numerous subcentimeter lymph nodes within the axillary regions and mediastinum are of uncertain clinical significance and have decreased in size since the prior study. There also are mildly prominent lymph nodes evident within the upper retroperitoneum and portacaval region, which are unchanged. Dictated by: Reid Christopher M.D. on 04/24/2020 at 13:30 Approved by: Reid Christophre M.D. on 04/24/2020 at 13:38
[2020-04-24 14:04] LABS: Troponin I < 0.012 ng/mL (0.01-0.034)
[2020-04-24 14:10] LABS: Add Manual Diff / Slide Review NO; Basophils Absolute Auto 100 /uL (0-100); Basophils Percent Auto 1.3 % (0-2); Eosinophils Absolute Auto 100 /uL (0-450); Eosinophils Percent Auto 0.9 % (2-4); Hematocrit 33.9 % (41-53); Hemoglobin 11.1 g/dL (13.5-17.5); Lymphocytes Absolute Auto 3000 /uL (1100-4500); Lymphocytes Percent Auto 36.3 % (25-40); Mean Corpuscular HGB Conc 32.8 % (30-36); Mean Corpuscular Hemoglobin 27.4 PG (26-34); Mean Corpuscular Volume 83.6 fL (80-100); Monocytes Absolute Auto 1100 /uL (0-900); Monocytes Percent Auto 13.1 % (3-14); Neutrophils Absolute Auto 4000 /uL (1500-7000); Neutrophils Percent Auto 48.4 % (50-75); Platelet Count 361 X10^3/uL (150-400); Red Blood Cell Count 4.05 X10^6/uL (4.5-5.9); Red Cell Distribution Width 16.4 % (11.6-14.8); White Blood Cell Count 8.3 X10^3/uL (4.5-11.0)
[2020-04-24 14:20] LABS: Procalcitonin < 0.05 ng/mL (<0.5)
[2020-04-24] MEDS: ALBUTEROL HFA PREPACK 1 BOX MISC (14:57)
[2020-04-24 15:06] VITALS: PULSE 99; RESP 20; O2SAT 99
--- NOTE | 2020-04-24 15:42 | PC.NURSE ---
Pt ambulated around department on monitor. Stated he devoloped SOB. Speaking in full sentences, no dizziness reported, o2sat 95-99% on room air. Hr to 111 max, provider notified.
[2020-04-24 15:52] VITALS: BP 137/76; PULSE 92; RESP 18; O2SAT 98
[2020-04-24] MEDS: predniSONE 20 MG TABLET 40 MG PO (15:52)
[2020-04-24 16:19] VITALS: TEMP 36.8
== END 2020-04-24 16:16 | disposition home or self-care (01) ==
PROVIDERS: Emergency Provider Nurse Practitioner; Family Provider Family Medicine; PCP Family Medicine
DX: J45.20 Mild intermittent asthma, uncomplicated (principal); R05 Cough
CPT/HCPCS: 71045; 71275; 80053; 81003; 82550; 83605; 83735; 84145; 84484; 85025; 93005; 93010; 94640; 96360; 96361; 99284; Q9967

== ENCOUNTER → 2020-04-30 08:20 | Outpatient (CLI) | payer OTHER, SELFPAY ==
[2020-05-01 23:40] LABS: COVID19 Sendout Not Detected (Not Detect)
== END ==
PROVIDERS: Family Provider Family Medicine; PCP Family Medicine; Visit Provider Physician Assistant
DX: Z01.812 Encounter for preprocedural laboratory examination (principal)
CPT/HCPCS: 87635

== ENCOUNTER 2020-05-03 06:24 | Day surgery (SDC) | payer OTHER, SELFPAY ==
[2020-05-03] VITALS (8 sets, daily range): BP systolic 100–144; BP diastolic 64–80; PULSE 89–107; RESP 6–18; TEMP 36.6–37.2; O2SAT 93–99; BMI 26.2
--- NOTE | 2020-05-03 | PATH_ITS ---
[facility] Accession Number: [id number] . 01 Material submitted: . esophagus, E-G Junction - GE JUNCTION . 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 Negative for high-grade dysplasia or malignancy. [facility] 05/05/2020 1757 Local . 02 Comment: As part of routine quality management nurse, Dr. Salcido has reviewed this case and agrees with the diagnosis of low-grade glandular dysplasia. . 02 Electronically signed: . Slim Musa MD, PhD, Pathologist NPI- [id number] . 01 Gross description: . GE JUNCTION: Received in formalin are 5 fragment(s) of velasquez, soft tissue measuring 0.3 x 0.2 x 0.2 cm to 0.2 x 0.2 x 0.2 cm submitted entirely in 1 cassette(s) /QBJ 05/04/2020 0722 Local . 02 Pathologist provided ICD-10: K22.710 . 02 CPT . 747870 Performed at: 01 [facility] [address] [facility], [place], [place] [id number] MD Donaavn Bashir MD Phone: [phone] Performed at: 02 [facility] [address] [place], [place] [id number] MD Cely Tariq MD Phone: [phone]
[2020-05-03] MEDS: LACTATED RINGERS 1,000 ML 42 ML IV (07:28)
[2020-05-03] MEDS: ONDANSETRON 4 MG/2 ML INJ IV (08:25)
[2020-05-03] MEDS: LIDOCAINE 4% SOLN 50 ML 20 ML TOP (08:26)
--- NOTE | 2020-05-03 08:28 | PM.PREOP ---
Pre-operative Note COVID-19 COVID-19 status: Negative Result date/Date tested (Pos, Neg/Pending): 04/30/20 Interval Note History & Physical reviewed/Exam performed by Physician: Yes Changes to H&P: No ASA Class (for procedural sedation): II
[2020-05-03] MEDS: MIDAZOLAM 5 MG/5 ML VIAL IV (08:29)
[2020-05-03] MEDS: fentaNYL 250 MCG/5 ML INJ IV (08:29)
--- NOTE | 2020-05-03 09:14 | P.OP.ENDO_ITS ---
Operative Date/Time/Diagnoses Date of procedure: 05/03/20 Time of procedure: 09:00 Pre-op diagnosis: Anemia Post-op diagnosis: same (Possible Swenson's esophagus. No cause for anemia seen on these exams.) Procedure & Clinicians Study performed: EGD with cold biopsy. Colonoscopy. Same procedure as scheduled: Yes Indications: Determine if there is a gastrointestinal cause of the patient's anemia Surgeon: Ronnie Orellana Procedure Notes SCOAP/Timeout: Performed Procedure in detail: The patient had topical anesthetic applied to oropharynx. She was placed in left lateral decubitus position and underwent IV sedation di rected by the surgeon consisting of fentanyl and Versed. A bite block was inserted and the scope was advanced through it into the esophagus. The esophagus was unremarkable. GE junction was noted at 40 cm from the incisors. There were tongues of red tissue extending above the GE junction and a Schatzki ring was noted. There was not significant narrowing however. The stomach insufflated well. There were no lesions seen in the body, antrum or at the incisura. The pyloric channel was widely patent. The duodenum was unremarkable to the 4th part. The scope was brought back into the stomach and retroflexed. The proximal stomach normal in appearance. The scope was straightened and brought out through the esophagus again. Biopsies were taken at the GE junction. No other lesions were seen. The scope was removed and the patient tolerated the procedure well. The patient was given additional sedation. Digital exam was unremarkable. The scope was inserted and advanced through the rectum into the sigmoid, descending, transverse, and ascending colon. The patient was noted to have a few sigmoid diverticuli.. The cecum was reached identified by the ileocecal valve and the appendiceal opening. The ileocecal valve was successfully cannulated. The terminal ileum was normal in appearance. The scope was gradually brought out. No Polyps were found. The scope ultimately was retroflexed in the rectum. The appearance was remarkable for some small hemorrhoids which were not ulcerated.. The scope was removed and the patient tolerated the procedure well. Prep was very good. No obvious cause of this patient's anemia was found on either of these scopes. Scope withdrawal time: 9 minutes Sedation minutes: 34 Findings: Swenson's esophagus (Possible. Biopsy taken.), diverticulosis (A few sigmoid diverticuli noted) and other findings Specimen(s): other (GE junction biopsies) Complications: none Post-procedure Recommendations: Colonscopy in 5 years (Due to personal history of polyps), High fiber diet (Eat a diet rich in vegetables) and Start medication(s) (Consider taking Metamucil) Follow up: as needed Disposition: PACU
--- NOTE | 2020-05-03 14:26 | SUR.PHASEII ---
Late entry: Pt ready to go, assisted to wheelchair, drinking juice at the time. When passing the registration desks in main lobby pt stated that he was going to throw up, pt vomited 200mls of purple liquid, pt had grape juice post procedure. After pt vomited pt stated he felt better and had wanted to continue to go home. No further nausea vomiting and pt assited to car. Instructed pt to call surgeon's office if nausea/vomiting continued. Pt voiced an understanding.
--- NOTE | 2020-05-03 14:30 | SUR.PHASEII ---
8228 patient dressed independently. C/O feeling dizzy, skin pale. Patient provided fluids and rested on the stretcher. Call light within reach.
== END 2020-05-03 10:05 | disposition home or self-care (01) ==
PROVIDERS: Family Provider Family Medicine; PCP Family Medicine; Referring Provider Family Medicine; Visit Provider Specialist
PROC: 0DJ08ZZ Inspection of Upper Intestinal Tract, Via Natural or Artificial Opening Endoscopic (ICD-10-PCS; CPT 43235; principal; 2020-05-03 07:45)
PROC: 0DJD8ZZ Inspection of Lower Intestinal Tract, Via Natural or Artificial Opening Endoscopic (ICD-10-PCS; CPT 45378; 2020-05-03 07:45)
DX: D50.9 Iron deficiency anemia, unspecified (principal); Z85.72 Personal history of non-Hodgkin lymphomas; K57.30 Diverticulosis of large intestine without perforation or abscess without bleeding; K64.8 Other hemorrhoids; K22.710 Barrett's esophagus with low grade dysplasia
CPT/HCPCS: 43239; 45378; 99152; 99153; J2250; J2405; J3010

== ENCOUNTER → 2020-05-04 12:24 | Outpatient (CLI) | payer OTHER, SELFPAY ==
--- NOTE | 2020-05-04 12:26 | DI.RAD.S_ITS ---
PROCEDURE: XR CHEST 2V INDICATIONS: cough TECHNIQUE: 2 views of the chest were acquired. COMPARISON: [facility], CT, CT CHEST W CON, 03/30/2020, 14:36. [facility], CR, XR CHEST 2V, 04/08/2020, 12:26. FINDINGS: Surgical changes and devices: None. Lungs and pleura: Right middle lobe and left perihilar infiltrates are decreased. No pleural effusions or pneumothorax. Mediastinum: Mediastinal contours are normal. Heart size is normal. Bones and chest wall: No suspicious bony abnormalities. Soft tissues appear unremarkable. IMPRESSION: Resolving bilateral pneumonia. Right middle lobe and left perihilar infiltrates are decreased. Dictated by: Amber Galeas M.D. on 05/04/2020 at 12:34 Approved by: Amber Galeas M.D. on 05/04/2020 at 12:36
== END ==
PROVIDERS: Family Provider Family Medicine; PCP Family Medicine; Referring Provider Physician Assistant; Visit Provider Physician Assistant
DX: R05 Cough (principal); J18.9 Pneumonia, unspecified organism
CPT/HCPCS: 71046

== ENCOUNTER → 2020-05-31 08:18 | Outpatient (CLI) | payer OTHER, SELFPAY ==
[2020-06-01 09:15] LABS: COVID19 Sendout Not Detected (Not Detect)
== END ==
PROVIDERS: Family Provider Family Medicine; PCP Family Medicine; Visit Provider Physician Assistant
DX: Z11.59 Encounter for screening for other viral diseases (principal)
CPT/HCPCS: 87635

== ENCOUNTER → 2020-06-03 08:43 | Outpatient (CLI) | payer OTHER, SELFPAY ==
[2020-06-03 11:04] LABS: Add Manual Diff / Slide Review NO; Basophils Absolute Auto 0 /uL (0-100); Basophils Percent Auto 0.5 % (0-2); Eosinophils Absolute Auto 0 /uL (0-450); Eosinophils Percent Auto 0.1 % (2-4); Hematocrit 35.7 % (41-53); Hemoglobin 11.7 g/dL (13.5-17.5); Lymphocytes Absolute Auto 1300 /uL (1100-4500); Lymphocytes Percent Auto 19.7 % (25-40); Mean Corpuscular HGB Conc 32.6 % (30-36); Mean Corpuscular Hemoglobin 27.3 PG (26-34); Mean Corpuscular Volume 83.6 fL (80-100); Monocytes Absolute Auto 1000 /uL (0-900); Monocytes Percent Auto 15.2 % (3-14); Neutrophils Absolute Auto 4400 /uL (1500-7000); Neutrophils Percent Auto 64.5 % (50-75); Platelet Count 332 X10^3/uL (150-400); Red Blood Cell Count 4.27 X10^6/uL (4.5-5.9); Red Cell Distribution Width 16.8 % (11.6-14.8); White Blood Cell Count 6.7 X10^3/uL (4.5-11.0)
[2020-06-03 11:23] LABS: HEMOLYSIS < 15 (0-50); Iron 36 ug/dL (49-181)
[2020-06-03 11:34] LABS: Percent Iron Saturation 13 % (20-50); Total Iron Binding Capacity 267 ug/dL (261-462); Transferrin 183 mg/dL (206-381)
--- NOTE | 2020-06-09 11:10 | PM.PFT.1 ---
Pulmonary Function Test Referral & Results Date Patient Seen: 06/03/20 Requesting provider: Laura Lackey Results: The spirometry demonstrates an FVC of 5.13 L which is 98% of predicted. The FEV1 was measured at 3.76 L which is 96% of predicted. The FEV1/FVC ratio was 73 which is 97% of predicted. Following the administration of bronchodilator there was no appreciable change to above normal numbers. Lung volumes show an SVC of 4.85 L which is 94% of predicted. The diffusing capacity was measured at 29.20 which is 80% of predicted. No hemoglobin value was provided, so no correction for potential anemia could be made, if appropriate. The maximum voluntary ventilation was normal Interpretation: This study demonstrates normal pulmonary function. There may be a very minimal reduction in diffusing capacity, unless patient is anemic Clinical correlation suggested
== END ==
PROVIDERS: Family Provider Family Medicine; PCP Family Medicine; Referring Provider Family Medicine; Visit Provider Family Medicine
DX: R06.02 Shortness of breath (principal); D64.9 Anemia, unspecified
CPT/HCPCS: 36415; 83540; 83550; 85025; 94060; 94726; 94729

== ENCOUNTER → 2020-09-05 11:34 | Outpatient (CLI) | payer OTHER, SELFPAY ==
[2020-09-05 12:20] LABS: Add Manual Diff / Slide Review NO; Basophils Absolute Auto 0 /uL (0-100); Basophils Percent Auto 0.5 % (0-2); Eosinophils Absolute Auto 0 /uL (0-450); Hematocrit 33.7 % (41-53); Hemoglobin 11.1 g/dL (13.5-17.5); Lymphocytes Absolute Auto 1700 /uL (1100-4500); Lymphocytes Percent Auto 24.2 % (25-40); Mean Corpuscular Volume 81.8 fL (80-100); Monocytes Absolute Auto 1000 /uL (0-900); Monocytes Percent Auto 14.2 % (3-14); Neutrophils Absolute Auto 4400 /uL (1500-7000); Neutrophils Percent Auto 61.1 % (50-75); Platelet Count 341 X10^3/uL (150-400); Red Blood Cell Count 4.13 X10^6/uL (4.5-5.9); Red Cell Distribution Width 16.8 % (11.6-14.8); White Blood Cell Count 7.2 X10^3/uL (4.5-11.0)
[2020-09-05 12:51] LABS: HEMOLYSIS < 15 (0-50); Iron 24 ug/dL (49-181)
[2020-09-05 13:03] LABS: Percent Iron Saturation 9 % (20-50); Total Iron Binding Capacity 260 ug/dL (261-462); Transferrin 178 mg/dL (206-381)
== END ==
PROVIDERS: Family Provider Family Medicine; PCP Family Medicine; Referring Provider Family Medicine; Visit Provider Family Medicine
DX: D64.9 Anemia, unspecified (principal)
CPT/HCPCS: 36415; 83540; 83550; 85025

== ENCOUNTER → 2020-09-06 08:27 | Outpatient (CLI) | payer OTHER, SELFPAY ==
--- NOTE | 2020-09-06 08:29 | DI.RAD.S_ITS ---
PROCEDURE: XR SHOULDER LT MIN 2V INDICATIONS: l shoulder pain TECHNIQUE: 3 views of the shoulder were acquired. COMPARISON: [facility], CR, XR CHEST 2V, 05/04/2020, 12:16. FINDINGS: Bones: No fractures or dislocations. No suspicious bony lesions. Visualized ribs appear intact. Degenerative changes are seen, including moderate subacromial spurring. Soft tissues: No suspicious soft tissue calcifications. The visualized lung demonstrates an unremarkable appearance. IMPRESSION: Left shoulder degenerative changes are seen by plain film. If it would be helpful for clinical management decision making, please consider a dedicated shoulder MRI for further evaluation (assuming that there is no contraindication). If there is strong clinical concern for a labral abnormality, this should be performed according to the arthrogram protocol. Dictated by: Harish Chahal M.D. on 09/06/2020 at 8:13 Approved by: Harish Chahal M.D. on 09/06/2020 at 8:14
== END ==
PROVIDERS: Family Provider Family Medicine; PCP Family Medicine; Referring Provider Physician Assistant; Visit Provider Physician Assistant
DX: M25.512 Pain in left shoulder (principal)
CPT/HCPCS: 73030

== ENCOUNTER → 2020-09-14 15:29 | Outpatient (CLI) | payer OTHER, SELFPAY ==
[2020-09-14 17:21] LABS: TSH w/ Reflex to FT4 2.87 uIU/mL (0.47-4.68)
[2020-09-15 19:37] LABS: IgG Subclass 1 460 mg/dL (248-810); IgG Subclass 2 181 mg/dL (130-555); IgG Subclass 3 43 mg/dL (15-102); IgG Subclass 4 28 mg/dL (2-96); IgG Total 751 mg/dL (603-1613)
[2020-09-21 10:08] LABS: Pneumococcal AB Type 12F <0.1 ug/mL (>1.3); Pneumococcal AB Type 19F 0.1 ug/mL (>1.3); Pneumococcal AB Type 23F <0.1 ug/mL (>1.3); Pneumococcal AB Type 9N <0.1 ug/mL (>1.3)
== END ==
PROVIDERS: Family Provider Family Medicine; PCP Family Medicine; Referring Provider Family Medicine; Visit Provider Family Medicine
DX: Z85.79 Personal history of other malignant neoplasms of lymphoid, hematopoietic and related tissues (principal)
CPT/HCPCS: 36415; 82784; 82787; 84443; 86317

== ENCOUNTER → 2020-11-04 08:26 | Outpatient (CLI) | payer OTHER, SELFPAY ==
[2020-11-04 09:44] LABS: Reticulocyte Count, Percent 1.2 % (0.87-2.60)
[2020-11-04 09:46] LABS: Add Manual Diff / Slide Review NO; Basophils Absolute Auto 0 /uL (0-100); Basophils Percent Auto 0.7 % (0-2); Eosinophils Absolute Auto 0 /uL (0-450); Hematocrit 35.6 % (41-53); Hemoglobin 11.6 g/dL (13.5-17.5); Lymphocytes Absolute Auto 1700 /uL (1100-4500); Lymphocytes Percent Auto 25.4 % (25-40); Mean Corpuscular HGB Conc 32.5 % (30-36); Mean Corpuscular Hemoglobin 26.4 PG (26-34); Mean Corpuscular Volume 81.3 fL (80-100); Monocytes Absolute Auto 900 /uL (0-900); Monocytes Percent Auto 13.1 % (3-14); Neutrophils Absolute Auto 4000 /uL (1500-7000); Neutrophils Percent Auto 60.8 % (50-75); Platelet Count 326 X10^3/uL (150-400); Red Blood Cell Count 4.38 X10^6/uL (4.5-5.9); Red Cell Distribution Width 17.7 % (11.6-14.8); White Blood Cell Count 6.7 X10^3/uL (4.5-11.0)
[2020-11-04 10:04] LABS: HEMOLYSIS < 15 (0-50); Iron 49 ug/dL (49-181); Lactate Dehydrogenase 365 U/L (313-618)
[2020-11-04 10:15] LABS: Percent Iron Saturation 20 % (20-50); Total Iron Binding Capacity 247 ug/dL (261-462); Transferrin 165 mg/dL (206-381)
[2020-11-04 10:34] LABS: Ferritin 299 ng/mL (18-464)
[2020-11-08 11:11] LABS: Immunoglobulin A, Serum 28 mg/dL (61-437); Immunoglobulin G,Serum 809 mg/dL (603-1613); Immunoglobulin M, Serum 1887 mg/dL (20-172)
[2020-11-08 15:08] LABS: Albumin 3.2 g/dL (2.9-4.4); Alpha-1-Globulin 0.3 g/dL (0.0-0.4); Alpha-2-Globulin 0.8 g/dL (0.4-1.0); Gamma Globulin 0.8 g/dL (0.4-1.8); Globulin Total 3.9 g/dL (2.2-3.9); Protein, Total 7.1 g/dL (6.0-8.5)
== END ==
PROVIDERS: Family Provider Family Medicine; PCP Family Medicine
DX: C82.80 Other types of follicular lymphoma, unspecified site (principal); D64.9 Anemia, unspecified
CPT/HCPCS: 36415; 82728; 82784; 83540; 83550; 83615; 84155; 84165; 85025; 85045; 86334

== ENCOUNTER → 2020-11-09 13:00 | Oncology outpatient (ONC) | payer OTHER, SELFPAY ==
[2020-10-25] MEDS: IRON SUCROSE 200 MG in SODIUM CHLORIDE 0.9% 100 ML 220 ML IV (14:39)
[2020-10-25 14:43] VITALS: BP 146/78; PULSE 83; RESP 16; O2SAT 98
[2020-10-25 15:13] VITALS: BP 152/71; PULSE 82; RESP 18
--- NOTE | 2020-10-25 15:13 | PC.NURSE ---
reaction to iron: pt reports mild finger tingling, warm feeling and 'maybe' hard to breath. infusion slowed to 100ml/hr. VS taken
[2020-11-02 14:46] VITALS: BP 136/72; PULSE 87; RESP 16; TEMP 36.7; O2SAT 99
[2020-11-02] MEDS: IRON SUCROSE 200 MG in SODIUM CHLORIDE 0.9% 100 ML 125 ML IV (14:51)
[2020-11-09] MEDS: IRON SUCROSE 200 MG in SODIUM CHLORIDE 0.9% 100 ML 220 ML IV (13:28)
[2020-11-09 13:58] VITALS: BP 123/61; PULSE 77; RESP 16; TEMP 37.2; O2SAT 95
== END ==
PROVIDERS: Family Provider Family Medicine; PCP Family Medicine; Referring Provider Family Medicine; Visit Provider Family Medicine
DX: D50.9 Iron deficiency anemia, unspecified (principal)
CPT/HCPCS: 96365; J1756

== ENCOUNTER → 2020-12-14 08:24 | Outpatient (CLI) | payer OTHER, SELFPAY ==
[2020-12-14 09:17] LABS: Add Manual Diff / Slide Review NO; Basophils Absolute Auto 0 /uL (0-100); Basophils Percent Auto 0.7 % (0-2); Eosinophils Absolute Auto 0 /uL (0-450); Hemoglobin 11.4 g/dL (13.5-17.5); Lymphocytes Absolute Auto 1500 /uL (1100-4500); Lymphocytes Percent Auto 26.4 % (25-40); Mean Corpuscular HGB Conc 32.7 % (30-36); Mean Corpuscular Hemoglobin 26.9 PG (26-34); Mean Corpuscular Volume 82.4 fL (80-100); Monocytes Absolute Auto 1000 /uL (0-900); Monocytes Percent Auto 17.3 % (3-14); Neutrophils Absolute Auto 3100 /uL (1500-7000); Neutrophils Percent Auto 55.6 % (50-75); Platelet Count 330 X10^3/uL (150-400); Red Blood Cell Count 4.25 X10^6/uL (4.5-5.9); Red Cell Distribution Width 17.9 % (11.6-14.8); White Blood Cell Count 5.5 X10^3/uL (4.5-11.0)
[2020-12-14 10:11] LABS: Ferritin 228 ng/mL (18-464)
[2020-12-16 15:09] LABS: Albumin 3.2 g/dL (2.9-4.4); Alpha-1-Globulin 0.3 g/dL (0.0-0.4); Alpha-2-Globulin 0.9 g/dL (0.4-1.0); Gamma Globulin 0.8 g/dL (0.4-1.8); Globulin Total 4.1 g/dL (2.2-3.9); Protein, Total 7.3 g/dL (6.0-8.5)
== END ==
PROVIDERS: Family Provider Family Medicine; PCP Family Medicine; Referring Provider Family Medicine; Visit Provider Family Medicine
DX: C82.80 Other types of follicular lymphoma, unspecified site (principal); D50.9 Iron deficiency anemia, unspecified
CPT/HCPCS: 36415; 82728; 84155; 84165; 85025

== ENCOUNTER 2020-12-20 15:15 | Outpatient (RCR) | payer OTHER, SELFPAY ==
--- NOTE | 2020-10-18 15:35 | PT.OIE ---
Current Diagnoses Pain in left shoulder (10/18/20) Stiffness of left shoulder, not elsewhere classified (10/18/20) Impingement syndrome of left shoulder (10/18/20) Past Medical History (Last Updated 10/18/20 @ 11:36 by Anurag Vides LPN) Anxiety (2015) Barretts esophagus Chronic cough Collapsed lung (1974) Colon polyps (~2008) Depression (2015) Fracture of right upper extremity (~1965) Hayfever Herpes (~1979) Hypertension (2005) Iron deficiency anemia Kidney stones (1991) Measles Mumps NHL (non-Hodgkin's lymphoma) (1999) Skin problem (2004) Sleep apnea WPW (Fjmsp-Qwnhiduqc-Knfju syndrome) (2009) Past Surgical History (Last Reviewed 04/24/20 @ 14:14 by AILEEN Mendosa) Anesthesia History of cardiac radiofrequency ablation (RFA) (2009) History of colonoscopy (~2008) History of surgery on arm (~1964) Status post appendectomy (~1959) Visit Care Team Role Provider Type Laura Lackey MD Family Provider Physician Primary Care Provider Specialty: Family Practice Address: [address] [place] [address], [facility] Email: [email or web address] Alfreda Arellano PA-C Attending Provider Advanced School Traffic Supervisor Referring Provider Specialty: [facility] Address: [address] [place] [address], [facility] Email: [email or web address] Physical Therapy Initial Evaluation PT-OP-A Visit Information Start: 10/18/20 14:39 Freq: Status: Active Protocol: Document 10/18/20 12:00 DCW (Rec: 10/18/20 15:08 DC [id number]) Out-Patient Physical Therapy Visit Information Visit Information Visit Type Initial Evaluation Visit Start Time 12:00 Visit Stop Time 12:45 Total Visit Minutes 45 Visit Number 1 Number of ROPE SILICA MACHINE OPERATOR Visits 0 Evaluation Information Evaluation Date 10/18/20 PT-OP-B Current Condition Start: 10/18/20 14:39 Freq: Status: Active Protocol: Document 10/18/20 12:00 DCW (Rec: 10/18/20 15:08 DCW [id number]) Current Condition History of Current Condition Onset Date s/p 6-7 months Current Complaints Left shoulder pain, stiffness History of Current Condition Pt is a 65 year old male presenting with a 6-7 month history of left shoulder pain and stiffness. Pt notes he doesn't remember instigating injury at that time, but does recall a fall when running in June of 2019, approximately 8 months prior to his pain starting. Pt struggles mainly getting his hand around to reach his back, and also experiences severe pain with external rotation, and has what he refers to as a hard stop. Prior Treatments and Tests X-ray: Degenerative changes are seen, including moderate subacromial spurring. If it would be helpful for clinical management decision making, please consider a dedicated shoulder MRI for further evaluation (assuming that there is no contraindication). If there is strong clinical concern for a labral abnormality, this should be performed according to the arthrogram protocol. -per Harish Chahal M.D. on PT-OP-C Subjective Start: 10/18/20 14:39 Freq: Status: Active Protocol: Document 10/18/20 12:00 DC (Rec: 10/18/20 15:08 [facility] [id number]) OP-PT Subjective Patient Comments Patient Comments I've been trying to stretch it out, but I just hit a wall in there and it's just an immediate 8-9/10 pain. Patient Questionnaires Quick Dash- Upper Extremity Quick Dash UE Score 36.36% Quick Dash UE Impairment 20 to 39% Impaired (Score 20- 39) OP-PT Pain Assessment Pain Assessment Grid Paper Pain Assessment Grid Completed Yes Location Left Lateral Shoulder Intensity 6 Scale Used Numeric (0 - 10) PT-OP-E Functional Tests Start: 10/18/20 14:39 Freq: Status: Active Protocol: Document 10/18/20 12:00 DCW (Rec: 10/18/20 15:08 [facility] [id number]) Functional Tests Narcisoey's Scratch Test Action 1- Left Posterior opposite shoulder Action 1- Right Posterior opposite shoulder Action 2- Left T5 Action 2- Right T5 Action 3- Left Left PSIS Action 3- Right T8 PT-OP-F Manual Assessment Start: 10/18/20 14:39 Freq: Status: Active Protocol: Document 10/18/20 12:00 DCW (Rec: 10/18/20 15:08 [facility] [id number]) Manual Assessments Soft Tissue Assessment Soft Tissue Mobility Assessment Tenderness to palpation 2/4: Pain with wincing along subacromial space through insertion of supraspinatus. Joint Mobility Assessment Joint Mobility Assessment HARD end feel at 40? external rotation PT-OP-K Range of Motion Start: 10/18/20 14:39 Freq: Status: Active Protocol: Document 10/18/20 12:00 DCW (Rec: 10/18/20 15:08 [facility] [id number]) Shoulder Goniometric Range of Motion Shoulder Left Passive Shoulder ROM WFL No Testing Position Sitting Flexion 180 Abduction 180 External Rotation at 0 degrees Abduction 40 Left Active Shoulder ROM WFL No Testing Position Sitting Flexion 180 Abduction 180 External Rotation at 0 degrees Abduction 40 Internal Rotation Behind Back (text) L PSIS PT-OP-L Special Tests Start: 10/18/20 14:39 Freq: Status: Active Protocol: Document 10/18/20 12:00 DCW (Rec: 10/18/20 15:08 [facility] [id number]) Special Tests Shoulder Special Tests Yergason's Biceps Test Results Negative Speed's Biceps Test Results Negative Painful Arc Test Results Positive L Passive ER Rotator Cuff Test Results Hard end feel at 40? Pham Alin Impingement Test Results Positive L Grind Labrum Test Results Positive L Biceps Load II Test Test Results Negative Clunk Test Test Results Positive L Belly Press Test Results Positive L PT-OP-M Strength Start: 10/18/20 14:39 Freq: Status: Active Protocol: Document 10/18/20 12:00 DCW (Rec: 10/18/20 15:08 [facility] [id number]) Shoulder Strength Shoulder Manual Muscle Testing Left Flexion 4 Good Abduction (C5) 4 Good Adduction 4 Good External Rotation 3 Fair Internal Rotation 4 Good PT-OP-T Assessment and Plan Start: 10/18/20 14:39 Freq: Status: Active Protocol: Document 10/18/20 12:00 DCW (Rec: 10/18/20 15:35 [facility] [id number]) Physical Therapy Assessment Rehab Potential Rehabilitation Potential Fair Evaluation Complexity Number of Personal Factors/Comorbidities 1-2 Number of Body Systems Impaired 3 Clinical Presentation at Evaluation Stable Impairments Impairments Activity Tolerance,Functional Activities,Functional Mobility ,Pain,ROM,Soft Tissue Mobility ,Strength Goals Three Impairment Pt limited ER to 40? with a hard end feel [employer]p [employer] Goal (LTG) Pt to demonstrate increase in ER to 60? LTG Duration 12/16/20 Two Impairment Pt unable to reach back to don jacket sleeve [employer]p [employer] Goal (LTG) Pt to don and doff jacket with no pain or stiffness LTG Duration 12/16/20 One Impairment Pt does not have an appropriate home exercise program Short Term Goal (STG) Pt to be independent and compliant with an appropriate HEP STG Duration 11/18/20 Assessment Summary Assessment Pt presents with signs and symptoms consistent with left subacromial impingement, as well as a potential labral sprain/tear. Pt's subjective complaints, painful arc, impingement test are all suggestive of impingement and subscapularis irritation along tendon to insertion. This does not, however, well explain the hard stop and severe pain at 40? external rotation. This is a little more suggestive of a labral tear, and pt does exhibit positive labral grind and clunk tests. Pt would likely benefit from skilled therapy, especially focusing on STM and joint mobilization to decrease impingement. Pt may also benefit from an MRI to rule in or rule out potential labral tear. Physical Therapy Plan Frequency and Duration Frequency of Treatment 2x/Week Duration of Treatment 10 weeks Plan of Care Start Date 10/18/20 Plan of Care End Date 12/27/20 Therapeutic Interventions Therapeutic Interventions Home Exercise Program,Joint Mobilizations,Manual Therapy, Patient/Caregiver Education, Self-Care/Home Management,Soft Tissue Mobilization, Therapeutic Activities, Therapeutic Exercises Next Visit Focus/Plan Next Note Type Treatment Note Next Visit Plan STM and joint mobilizations, flexibility, strengthening
--- NOTE | 2020-10-18 15:35 | PT.OPPOC ---
Physical, Occupational & Speech Therapy At [facility] Current Diagnoses Pain in left shoulder (10/18/20) Stiffness of left shoulder, not elsewhere classified (10/18/20) Impingement syndrome of left shoulder (10/18/20) Visit Care Team Role Provider Type Laura Lackey MD Family Provider Physician Primary Care Provider Specialty: Family Practice Address: [address] [place] [address], [place], [address] Email: [email or web address] Alfreda Arellano PA-C Attending Provider Advanced Cash Processing Specialist Referring Provider Specialty: [facility] Address: [address] [place] [address], [id number] Email: [email or web address] Plan Of Care PT-OP-T Assessment and Plan Start: 10/18/20 14:39 Freq: Status: Active Protocol: Document 10/18/20 12:00 DCW (Rec: 10/18/20 15:35 DCW [id number]) Physical Therapy Assessment Rehab Potential Rehabilitation Potential Fair Evaluation Complexity Number of Personal Factors/Comorbidities 1-2 Number of Body Systems Impaired 3 Clinical Presentation at Evaluation Stable Impairments Impairments Activity Tolerance,Functional Activities,Functional Mobility ,Pain,ROM,Soft Tissue Mobility ,Strength Goals Three Impairment Pt limited ER to 40? with a hard end feel Fdc Goal (LTG) Pt to demonstrate increase in ER to 60? LTG Duration 12/16/20 Two Impairment Pt unable to reach back to don jacket sleeve Applications Specialist Goal (LTG) Pt to don and doff jacket with no pain or stiffness LTG Duration 12/16/20 One Impairment Pt does not have an appropriate home exercise program Short Term Goal (STG) Pt to be independent and compliant with an appropriate HEP STG Duration 11/18/20 Assessment Summary Assessment Pt presents with signs and symptoms consistent with left subacromial impingement, as well as a potential labral sprain/tear. Pt's subjective complaints, painful arc, impingement test are all suggestive of impingement and subscapularis irritation along tendon to insertion. This does not, however, well explain the hard stop and severe pain at 40? external rotation. This is a little more suggestive of a labral tear, and pt does exhibit positive labral grind and clunk tests. Pt would likely benefit from skilled therapy, especially focusing on STM and joint mobilization to decrease impingement. Pt may also benefit from an MRI to rule in or rule out potential labral tear. Physical Therapy Plan Frequency and Duration Frequency of Treatment 2x/Week Duration of Treatment 10 weeks Plan of Care Start Date 10/18/20 Plan of Care End Date 12/27/20 Therapeutic Interventions Therapeutic Interventions Home Exercise Program,Joint Mobilizations,Manual Therapy, Patient/Caregiver Education, Self-Care/Home Management,Soft Tissue Mobilization, Therapeutic Activities, Therapeutic Exercises Next Visit Focus/Plan Next Note Type Treatment Note Next Visit Plan STM and joint mobilizations, flexibility, strengthening Plan of Care Dates Plan of Care Start Date 10/18/20 Plan of Care End Date 12/27/20 Electronically Signed by: Leonel Unger, PT 10/18/20 3899 Please Sign and Return: I have reviewed this Plan of Care and certify that the skilled therapy services above are required to meet the patient?s needs. Physician Signature Date Printed Name and Credentials Clinical Instructor Signature Printed Name and Credentials
--- NOTE | 2020-10-21 14:33 | PT.OTN ---
Current Diagnoses Pain in left shoulder (10/21/20) Stiffness of left shoulder, not elsewhere classified (10/21/20) Impingement syndrome of left shoulder (10/21/20) Physical Therapy Treatment Note PT-OP-A Visit Information Start: 10/18/20 14:39 Freq: Status: Active Protocol: Document 10/21/20 13:50 DCW (Rec: 10/21/20 14:33 DCW [id number]) Out-Patient Physical Therapy Visit Information Visit Information Visit Type Treatment Note Visit Start Time 13:50 Visit Stop Time 14:30 Total Visit Minutes 40 Visit Number 2 Number of NIP WRAPPER Visits 0 Evaluation Information Evaluation Date 10/18/20 PT-OP-B Current Condition Start: 10/18/20 14:39 Freq: Status: Active Protocol: Document 10/18/20 12:00 DCW (Rec: 10/18/20 15:08 DCW [id number]) Current Condition History of Current Condition Onset Date s/p 6-7 months Current Complaints Left shoulder pain, stiffness History of Current Condition Pt is a 65 year old male presenting with a 6-7 month history of left shoulder pain and stiffness. Pt notes he doesn't remember instigating injury at that time, but does recall a fall when running in June of 2019, approximately 8 months prior to his pain starting. Pt struggles mainly getting his hand around to reach his back, and also experiences severe pain with external rotation, and has what he refers to as a hard stop. Prior Treatments and Tests X-ray: Degenerative changes are seen, including moderate subacromial spurring. If it would be helpful for clinical management decision making, please consider a dedicated shoulder MRI for further evaluation (assuming that there is no contraindication). If there is strong clinical concern for a labral abnormality, this should be performed according to the arthrogram protocol. -per Harish Chahal M.D. on PT-OP-C Subjective Start: 10/18/20 14:39 Freq: Status: Active Protocol: Document 10/21/20 13:50 DCW (Rec: 10/21/20 14:33 DCW [id number]) OP-PT Subjective Patient Comments Patient Comments It's about the same. I keep thinking of it like a muscle. I try to stretch it out, use heat, use Bengay, and it just does not work. I am not making any progress. PT-OP-E Functional Tests Start: 10/18/20 14:39 Freq: Status: Active Protocol: Document 10/18/20 12:00 DCW (Rec: 10/18/20 15:08 [facility] [id number]) Functional Tests Apley's Scratch Test Action 1- Left Posterior opposite shoulder Action 1- Right Posterior opposite shoulder Action 2- Left T5 Action 2- Right T5 Action 3- Left Left PSIS Action 3- Right T8 PT-OP-F Manual Assessment Start: 10/18/20 14:39 Freq: Status: Active Protocol: Document 10/18/20 12:00 DCW (Rec: 10/18/20 15:08 [facility] [id number]) Manual Assessments Soft Tissue Assessment Soft Tissue Mobility Assessment Tenderness to palpation 2/4: Pain with wincing along subacromial space through insertion of supraspinatus. Joint Mobility Assessment Joint Mobility Assessment HARD end feel at 40? external rotation PT-OP-K Range of Motion Start: 10/18/20 14:39 Freq: Status: Active Protocol: Document 10/18/20 12:00 DCW (Rec: 10/18/20 15:08 [facility] [id number]) Shoulder Goniometric Range of Motion Shoulder Left Passive Shoulder ROM WFL No Testing Position Sitting Flexion 180 Abduction 180 External Rotation at 0 degrees Abduction 40 Left Active Shoulder ROM WFL No Testing Position Sitting Flexion 180 Abduction 180 External Rotation at 0 degrees Abduction 40 Internal Rotation Behind Back (text) L PSIS PT-OP-L Special Tests Start: 10/18/20 14:39 Freq: Status: Active Protocol: Document 10/18/20 12:00 DCW (Rec: 10/18/20 15:08 [facility] [id number]) Special Tests Shoulder Special Tests Yergason's Biceps Test Results Negative Speed's Biceps Test Results Negative Painful Arc Test Results Positive L Passive ER Rotator Cuff Test Results Hard end feel at 40? Pham Alin Impingement Test Results Positive L Grind Labrum Test Results Positive L Biceps Load II Test Test Results Negative Clunk Test Test Results Positive L Belly Press Test Results Positive L PT-OP-M Strength Start: 10/18/20 14:39 Freq: Status: Active Protocol: Document 10/18/20 12:00 DCW (Rec: 10/18/20 15:08 DCW [id number]) Shoulder Strength Shoulder Manual Muscle Testing Left Flexion 4 Good Abduction (C5) 4 Good Adduction 4 Good External Rotation 3 Fair Internal Rotation 4 Good PT-OP-Q Treatments Start: 10/18/20 14:39 Freq: Status: Active Protocol: Document 10/21/20 13:50 DCW (Rec: 10/21/20 14:33 DCW [id number]) Therapeutic Exercises Supine Exercises 1 Supine Exercise Name PROM Shoulder Flex, Abd, ER, IR Comments Manual Standing Exercises 2 Standing Exercise Name Doorway Pec Stretch Side left 1 Standing Exercise Name GH IR with Pulleys Side left Manual Therapy Treatment Soft Tissue Mobilization 3 Body Location L Upper trap Mobilization Type Strumming,Sustained Pressure Body Position Supine 2 Body Location L Parascapulars Mobilization Type Strumming,Sustained Pressure Body Position Supine 1 Body Location L Pec Mobilization Type Strumming,Sustained Pressure Body Position Supine PT-OP-T Assessment and Plan Start: 10/18/20 14:39 Freq: Status: Active Protocol: Document 10/21/20 13:50 DCW (Rec: 10/21/20 14:33 DCW [id number]) Physical Therapy Assessment Impairments Impairments Activity Tolerance,Functional Activities,Functional Mobility ,Pain,ROM,Soft Tissue Mobility ,Strength Goals Three Impairment Pt limited ER to 40? with a hard end feel Usp Goal (LTG) Pt to demonstrate increase in ER to 60? LTG Duration 12/16/20 Two Impairment Pt unable to reach back to don jacket sleeve Dealer Support Technician Goal (LTG) Pt to don and doff jacket with no pain or stiffness LTG Duration 12/16/20 One Impairment Pt does not have an appropriate home exercise program Short Term Goal (STG) Pt to be independent and compliant with an appropriate HEP STG Duration 11/18/20 Assessment Summary Assessment Focused on a lot of STM and joint mobility today in hopes to decrease pain from impingement. Physical Therapy Plan Frequency and Duration Frequency of Treatment 2x/Week Duration of Treatment 10 weeks Plan of Care Start Date 10/18/20 Plan of Care End Date 12/27/20 Therapeutic Interventions Therapeutic Interventions Home Exercise Program,Joint Mobilizations,Manual Therapy, Patient/Caregiver Education, Self-Care/Home Management,Soft Tissue Mobilization, Therapeutic Activities, Therapeutic Exercises Next Visit Focus/Plan Next Note Type Treatment Note Next Visit Plan STM and joint mobilizations, flexibility, strengthening
--- NOTE | 2020-10-25 14:26 | PT.OTN ---
Current Diagnoses Pain in left shoulder (10/25/20) Stiffness of left shoulder, not elsewhere classified (10/25/20) Impingement syndrome of left shoulder (10/25/20) Physical Therapy Treatment Note PT-OP-A Visit Information Start: 10/18/20 14:39 Freq: Status: Active Protocol: Document 10/25/20 13:49 DCW (Rec: 10/25/20 14:26 DCW [id number]) Out-Patient Physical Therapy Visit Information Visit Information Visit Type Treatment Note Visit Start Time 13:49 Visit Stop Time 14:22 Total Visit Minutes 33 Visit Number 3 Number of OBEDIENCE TRAINER Visits 0 Evaluation Information Evaluation Date 10/18/20 PT-OP-B Current Condition Start: 10/18/20 14:39 Freq: Status: Active Protocol: Document 10/18/20 12:00 DCW (Rec: 10/18/20 15:08 DCW [id number]) Current Condition History of Current Condition Onset Date s/p 6-7 months Current Complaints Left shoulder pain, stiffness History of Current Condition Pt is a 65 year old male presenting with a 6-7 month history of left shoulder pain and stiffness. Pt notes he doesn't remember instigating injury at that time, but does recall a fall when running in June of 2019, approximately 8 months prior to his pain starting. Pt struggles mainly getting his hand around to reach his back, and also experiences severe pain with external rotation, and has what he refers to as a hard stop. Prior Treatments and Tests X-ray: Degenerative changes are seen, including moderate subacromial spurring. If it would be helpful for clinical management decision making, please consider a dedicated shoulder MRI for further evaluation (assuming that there is no contraindication). If there is strong clinical concern for a labral abnormality, this should be performed according to the arthrogram protocol. -per Harish Chahal M.D. on PT-OP-C Subjective Start: 10/18/20 14:39 Freq: Status: Active Protocol: Document 10/25/20 13:49 DCW (Rec: 10/25/20 14:26 DCW [id number]) OP-PT Subjective Patient Comments Patient Comments I feel like stretching my pec out is giving me better motion in my shoulder. PT-OP-E Functional Tests Start: 10/18/20 14:39 Freq: Status: Active Protocol: Document 10/18/20 12:00 DCW (Rec: 10/18/20 15:08 [facility] [id number]) Functional Tests Apley's Scratch Test Action 1- Left Posterior opposite shoulder Action 1- Right Posterior opposite shoulder Action 2- Left T5 Action 2- Right T5 Action 3- Left Left PSIS Action 3- Right T8 PT-OP-F Manual Assessment Start: 10/18/20 14:39 Freq: Status: Active Protocol: Document 10/18/20 12:00 DCW (Rec: 10/18/20 15:08 [facility] [id number]) Manual Assessments Soft Tissue Assessment Soft Tissue Mobility Assessment Tenderness to palpation 2/4: Pain with wincing along subacromial space through insertion of supraspinatus. Joint Mobility Assessment Joint Mobility Assessment HARD end feel at 40? external rotation PT-OP-K Range of Motion Start: 10/18/20 14:39 Freq: Status: Active Protocol: Document 10/18/20 12:00 DCW (Rec: 10/18/20 15:08 [facility] [id number]) Shoulder Goniometric Range of Motion Shoulder Left Passive Shoulder ROM WFL No Testing Position Sitting Flexion 180 Abduction 180 External Rotation at 0 degrees Abduction 40 Left Active Shoulder ROM WFL No Testing Position Sitting Flexion 180 Abduction 180 External Rotation at 0 degrees Abduction 40 Internal Rotation Behind Back (text) L PSIS PT-OP-L Special Tests Start: 10/18/20 14:39 Freq: Status: Active Protocol: Document 10/18/20 12:00 DCW (Rec: 10/18/20 15:08 [facility] [id number]) Special Tests Shoulder Special Tests Yergason's Biceps Test Results Negative Speed's Biceps Test Results Negative Painful Arc Test Results Positive L Passive ER Rotator Cuff Test Results Hard end feel at 40? Pham Alin Impingement Test Results Positive L Grind Labrum Test Results Positive L Biceps Load II Test Test Results Negative Clunk Test Test Results Positive L Belly Press Test Results Positive L PT-OP-M Strength Start: 10/18/20 14:39 Freq: Status: Active Protocol: Document 10/18/20 12:00 DCW (Rec: 10/18/20 15:08 [facility] [id number]) Shoulder Strength Shoulder Manual Muscle Testing Left Flexion 4 Good Abduction (C5) 4 Good Adduction 4 Good External Rotation 3 Fair Internal Rotation 4 Good PT-OP-Q Treatments Start: 10/18/20 14:39 Freq: Status: Active Protocol: Document 10/25/20 13:49 DCW (Rec: 10/25/20 14:26 DCW [id number]) Cardio Equipment Upper Body Ergometer (UBE) Duration (Minutes) 2 RPM 60 Seat Position 12 Height 3 Therapeutic Exercises Supine Exercises 2 Supine Exercise Name Serratus punch Side bilateral 1 Supine Exercise Name PROM Shoulder Flex, Abd, ER, IR Comments Manual Standing Exercises 4 Standing Exercise Name Rows Side bilateral Resistance Lv 3 Equipment Used T-band 3 Standing Exercise Name Shoulder IR/ER Side left Resistance Lv 2 Equipment Used T-band PT-OP-T Assessment and Plan Start: 10/18/20 14:39 Freq: Status: Active Protocol: Document 10/25/20 13:49 DCW (Rec: 10/25/20 14:26 DCW [id number]) Physical Therapy Assessment Impairments Impairments Activity Tolerance,Functional Activities,Functional Mobility ,Pain,ROM,Soft Tissue Mobility ,Strength Goals Three Impairment Pt limited ER to 40? with a hard end feel Skilled Nursing Goal (LTG) Pt to demonstrate increase in ER to 60? LTG Duration 12/16/20 Two Impairment Pt unable to reach back to don jacket sleeve Marine Painter Goal (LTG) Pt to don and doff jacket with no pain or stiffness LTG Duration 12/16/20 One Impairment Pt does not have an appropriate home exercise program Short Term Goal (STG) Pt to be independent and compliant with an appropriate HEP STG Duration 11/18/20 Assessment Summary Assessment Pt making great improvement in only his second visit. ER ROM improving with minimal (2-3/ 10) pain, decreasing pec tone. Physical Therapy Plan Frequency and Duration Frequency of Treatment 2x/Week Duration of Treatment 10 weeks Plan of Care Start Date 10/18/20 Plan of Care End Date 12/27/20 Therapeutic Interventions Therapeutic Interventions Home Exercise Program,Joint Mobilizations,Manual Therapy, Patient/Caregiver Education, Self-Care/Home Management,Soft Tissue Mobilization, Therapeutic Activities, Therapeutic Exercises Next Visit Focus/Plan Next Note Type Treatment Note Next Visit Plan STM and joint mobilizations, flexibility, strengthening
--- NOTE | 2020-11-01 12:04 | PT.OTN ---
Current Diagnoses Pain in left shoulder (11/01/20) Stiffness of left shoulder, not elsewhere classified (11/01/20) Impingement syndrome of left shoulder (11/01/20) Physical Therapy Treatment Note PT-OP-A Visit Information Start: 10/18/20 14:39 Freq: Status: Active Protocol: Document 11/01/20 11:20 DCW (Rec: 11/01/20 12:04 DCW [id number]) Out-Patient Physical Therapy Visit Information Visit Information Visit Type Treatment Note Visit Start Time 11:20 Visit Stop Time 12:00 Total Visit Minutes 40 Visit Number 4 Number of CLOCK AND WATCH ASSEMBLER Visits 0 Evaluation Information Evaluation Date 10/18/20 PT-OP-B Current Condition Start: 10/18/20 14:39 Freq: Status: Active Protocol: Document 10/18/20 12:00 DCW (Rec: 10/18/20 15:08 DCW [id number]) Current Condition History of Current Condition Onset Date s/p 6-7 months Current Complaints Left shoulder pain, stiffness History of Current Condition Pt is a 65 year old male presenting with a 6-7 month history of left shoulder pain and stiffness. Pt notes he doesn't remember instigating injury at that time, but does recall a fall when running in June of 2019, approximately 8 months prior to his pain starting. Pt struggles mainly getting his hand around to reach his back, and also experiences severe pain with external rotation, and has what he refers to as a hard stop. Prior Treatments and Tests X-ray: Degenerative changes are seen, including moderate subacromial spurring. If it would be helpful for clinical management decision making, please consider a dedicated shoulder MRI for further evaluation (assuming that there is no contraindication). If there is strong clinical concern for a labral abnormality, this should be performed according to the arthrogram protocol. -per Harish Chahal M.D. on PT-OP-C Subjective Start: 10/18/20 14:39 Freq: Status: Active Protocol: Document 11/01/20 11:20 DCW (Rec: 11/01/20 12:04 DCW [id number]) OP-PT Subjective Patient Comments Patient Comments Pt reports his shoulder feels about the same, notes last week he got an iron infusion for his anemia, and feels like he is benefitting quite a bit , as far as his energy level goes. PT-OP-E Functional Tests Start: 10/18/20 14:39 Freq: Status: Active Protocol: Document 10/18/20 12:00 DCW (Rec: 10/18/20 15:08 [facility] [id number]) Functional Tests Apley's Scratch Test Action 1- Left Posterior opposite shoulder Action 1- Right Posterior opposite shoulder Action 2- Left T5 Action 2- Right T5 Action 3- Left Left PSIS Action 3- Right T8 PT-OP-F Manual Assessment Start: 10/18/20 14:39 Freq: Status: Active Protocol: Document 10/18/20 12:00 DCW (Rec: 10/18/20 15:08 [facility] [id number]) Manual Assessments Soft Tissue Assessment Soft Tissue Mobility Assessment Tenderness to palpation 2/4: Pain with wincing along subacromial space through insertion of supraspinatus. Joint Mobility Assessment Joint Mobility Assessment HARD end feel at 40? external rotation PT-OP-K Range of Motion Start: 10/18/20 14:39 Freq: Status: Active Protocol: Document 10/18/20 12:00 DCW (Rec: 10/18/20 15:08 [facility] [id number]) Shoulder Goniometric Range of Motion Shoulder Left Passive Shoulder ROM WFL No Testing Position Sitting Flexion 180 Abduction 180 External Rotation at 0 degrees Abduction 40 Left Active Shoulder ROM WFL No Testing Position Sitting Flexion 180 Abduction 180 External Rotation at 0 degrees Abduction 40 Internal Rotation Behind Back (text) L PSIS PT-OP-L Special Tests Start: 10/18/20 14:39 Freq: Status: Active Protocol: Document 10/18/20 12:00 DCW (Rec: 10/18/20 15:08 [facility] [id number]) Special Tests Shoulder Special Tests Yergason's Biceps Test Results Negative Speed's Biceps Test Results Negative Painful Arc Test Results Positive L Passive ER Rotator Cuff Test Results Hard end feel at 40? Pham Alin Impingement Test Results Positive L Grind Labrum Test Results Positive L Biceps Load II Test Test Results Negative Clunk Test Test Results Positive L Belly Press Test Results Positive L PT-OP-M Strength Start: 10/18/20 14:39 Freq: Status: Active Protocol: Document 10/18/20 12:00 DCW (Rec: 10/18/20 15:08 DCW [id number]) Shoulder Strength Shoulder Manual Muscle Testing Left Flexion 4 Good Abduction (C5) 4 Good Adduction 4 Good External Rotation 3 Fair Internal Rotation 4 Good PT-OP-Q Treatments Start: 10/18/20 14:39 Freq: Status: Active Protocol: Document 11/01/20 11:20 DCW (Rec: 11/01/20 12:04 DCW [id number]) Cardio Equipment Upper Body Ergometer (UBE) Duration (Minutes) 2 RPM 60 Seat Position 12 Height 3 Therapeutic Exercises Supine Exercises 1 Supine Exercise Name PROM Shoulder Flex, Abd, ER, IR Comments Manual Sidelying Exercises 1 Sidelying Exercise Name Sleeper stretch Side left Standing Exercises 5 Standing Exercise Name Shoulder Extension Side bilateral Resistance Lv 3 Equipment Used T-band 4 Standing Exercise Name Rows Side bilateral Resistance Lv 3 Equipment Used T-band 3 Standing Exercise Name Shoulder IR/ER Side left Resistance Lv 3 Equipment Used T-band Manual Therapy Treatment Soft Tissue Mobilization 3 Body Location L Upper trap Mobilization Type Strumming,Sustained Pressure Body Position Supine 2 Body Location L Parascapulars Mobilization Type Strumming,Sustained Pressure Body Position Supine 1 Body Location L Pec Mobilization Type Strumming,Sustained Pressure Body Position Supine PT-OP-T Assessment and Plan Start: 10/18/20 14:39 Freq: Status: Active Protocol: Document 11/01/20 11:20 DCW (Rec: 11/01/20 12:04 DCW [id number]) Physical Therapy Assessment Impairments Impairments Activity Tolerance,Functional Activities,Functional Mobility ,Pain,ROM,Soft Tissue Mobility ,Strength Goals Three Impairment Pt limited ER to 40? with a hard end feel Hvac Estimator Goal (LTG) Pt to demonstrate increase in ER to 60? LTG Duration 12/16/20 Two Impairment Pt unable to reach back to don jacket sleeve Hvac Estimator Goal (LTG) Pt to don and doff jacket with no pain or stiffness LTG Duration 12/16/20 One Impairment Pt does not have an appropriate home exercise program Short Term Goal (STG) Pt to be independent and compliant with an appropriate HEP STG Duration 11/18/20 Assessment Summary Assessment Pt shows increased ROM when humerus head is physically moved backward against the resistance of his pec tightness. Physical Therapy Plan Frequency and Duration Frequency of Treatment 2x/Week Duration of Treatment 10 weeks Plan of Care Start Date 10/18/20 Plan of Care End Date 12/27/20 Therapeutic Interventions Therapeutic Interventions Home Exercise Program,Joint Mobilizations,Manual Therapy, Patient/Caregiver Education, Self-Care/Home Management,Soft Tissue Mobilization, Therapeutic Activities, Therapeutic Exercises Next Visit Focus/Plan Next Note Type Treatment Note Next Visit Plan STM and joint mobilizations, flexibility, strengthening
--- NOTE | 2020-11-11 16:14 | PT.OTN ---
Current Diagnoses Pain in left shoulder (11/11/20) Stiffness of left shoulder, not elsewhere classified (11/11/20) Impingement syndrome of left shoulder (11/11/20) Physical Therapy Treatment Note PT-OP-A Visit Information Start: 10/18/20 14:39 Freq: Status: Active Protocol: Document 11/11/20 15:15 DCW (Rec: 11/11/20 16:14 DCW [id number]) Out-Patient Physical Therapy Visit Information Visit Information Visit Type Treatment Note Visit Start Time 15:15 Visit Stop Time 16:00 Total Visit Minutes 45 Visit Number 5 Number of CLEAT FEEDER Visits 0 Evaluation Information Evaluation Date 10/18/20 PT-OP-B Current Condition Start: 10/18/20 14:39 Freq: Status: Active Protocol: Document 10/18/20 12:00 DCW (Rec: 10/18/20 15:08 DCW [id number]) Current Condition History of Current Condition Onset Date s/p 6-7 months Current Complaints Left shoulder pain, stiffness History of Current Condition Pt is a 65 year old male presenting with a 6-7 month history of left shoulder pain and stiffness. Pt notes he doesn't remember instigating injury at that time, but does recall a fall when running in June of 2019, approximately 8 months prior to his pain starting. Pt struggles mainly getting his hand around to reach his back, and also experiences severe pain with external rotation, and has what he refers to as a hard stop. Prior Treatments and Tests X-ray: Degenerative changes are seen, including moderate subacromial spurring. If it would be helpful for clinical management decision making, please consider a dedicated shoulder MRI for further evaluation (assuming that there is no contraindication). If there is strong clinical concern for a labral abnormality, this should be performed according to the arthrogram protocol. -per Harish Chahal M.D. on PT-OP-C Subjective Start: 10/18/20 14:39 Freq: Status: Active Protocol: Document 11/11/20 15:15 DCW (Rec: 11/11/20 16:14 DCW [id number]) OP-PT Subjective Patient Comments Patient Comments Pt reports he has now had three weeks of infusions to help his anemia, and he is feeling significant improvement in his energy levels. PT-OP-E Functional Tests Start: 10/18/20 14:39 Freq: Status: Active Protocol: Document 10/18/20 12:00 DCW (Rec: 10/18/20 15:08 [facility] [id number]) Functional Tests Apley's Scratch Test Action 1- Left Posterior opposite shoulder Action 1- Right Posterior opposite shoulder Action 2- Left T5 Action 2- Right T5 Action 3- Left Left PSIS Action 3- Right T8 PT-OP-F Manual Assessment Start: 10/18/20 14:39 Freq: Status: Active Protocol: Document 10/18/20 12:00 DCW (Rec: 10/18/20 15:08 [facility] [id number]) Manual Assessments Soft Tissue Assessment Soft Tissue Mobility Assessment Tenderness to palpation 2/4: Pain with wincing along subacromial space through insertion of supraspinatus. Joint Mobility Assessment Joint Mobility Assessment HARD end feel at 40? external rotation PT-OP-K Range of Motion Start: 10/18/20 14:39 Freq: Status: Active Protocol: Document 10/18/20 12:00 DCW (Rec: 10/18/20 15:08 [facility] [id number]) Shoulder Goniometric Range of Motion Shoulder Left Passive Shoulder ROM WFL No Testing Position Sitting Flexion 180 Abduction 180 External Rotation at 0 degrees Abduction 40 Left Active Shoulder ROM WFL No Testing Position Sitting Flexion 180 Abduction 180 External Rotation at 0 degrees Abduction 40 Internal Rotation Behind Back (text) L PSIS PT-OP-L Special Tests Start: 10/18/20 14:39 Freq: Status: Active Protocol: Document 10/18/20 12:00 DCW (Rec: 10/18/20 15:08 [facility] [id number]) Special Tests Shoulder Special Tests Yergason's Biceps Test Results Negative Speed's Biceps Test Results Negative Painful Arc Test Results Positive L Passive ER Rotator Cuff Test Results Hard end feel at 40? Pham Alin Impingement Test Results Positive L Grind Labrum Test Results Positive L Biceps Load II Test Test Results Negative Clunk Test Test Results Positive L Belly Press Test Results Positive L PT-OP-M Strength Start: 10/18/20 14:39 Freq: Status: Active Protocol: Document 10/18/20 12:00 DCW (Rec: 10/18/20 15:08 [facility] [id number]) Shoulder Strength Shoulder Manual Muscle Testing Left Flexion 4 Good Abduction (C5) 4 Good Adduction 4 Good External Rotation 3 Fair Internal Rotation 4 Good PT-OP-Q Treatments Start: 10/18/20 14:39 Freq: Status: Active Protocol: Document 11/11/20 15:15 DCW (Rec: 11/11/20 16:14 DCW [id number]) Cardio Equipment Upper Body Ergometer (UBE) Duration (Minutes) 4 RPM 60 Seat Position 12 Height 3 Therapeutic Exercises Standing Exercises 5 Standing Exercise Name Shoulder Extension Side bilateral Resistance Lv 3 Equipment Used T-band 4 Standing Exercise Name Rows Side bilateral Resistance Lv 3 Equipment Used T-band 3 Standing Exercise Name Shoulder IR/ER Side left Resistance Lv 3 Equipment Used T-band Manual Therapy Treatment Soft Tissue Mobilization 3 Body Location L Upper trap Mobilization Type Strumming,Sustained Pressure Body Position Supine 2 Body Location L Parascapulars Mobilization Type Strumming,Sustained Pressure Body Position Supine 1 Body Location L Pec Mobilization Type Strumming,Sustained Pressure Body Position Supine PT-OP-T Assessment and Plan Start: 10/18/20 14:39 Freq: Status: Active Protocol: Document 11/11/20 15:15 DCW (Rec: 11/11/20 16:14 DCW [id number]) Physical Therapy Assessment Impairments Impairments Activity Tolerance,Functional Activities,Functional Mobility ,Pain,ROM,Soft Tissue Mobility ,Strength Goals Three Impairment Pt limited ER to 40? with a hard end feel Briefcase Sewer Goal (LTG) Pt to demonstrate increase in ER to 60? LTG Duration 12/16/20 Two Impairment Pt unable to reach back to don jacket sleeve Briefcase Sewer Goal (LTG) Pt to don and doff jacket with no pain or stiffness LTG Duration 12/16/20 One Impairment Pt does not have an appropriate home exercise program Short Term Goal (STG) Pt to be independent and compliant with an appropriate HEP STG Duration 11/18/20 Assessment Summary Assessment Pt showing substantial improvement with internal rotation ROM, getting from L PSIS at eval to T10 today. Physical Therapy Plan Frequency and Duration Frequency of Treatment 2x/Week Duration of Treatment 10 weeks Plan of Care Start Date 10/18/20 Plan of Care End Date 12/27/20 Therapeutic Interventions Therapeutic Interventions Home Exercise Program,Joint Mobilizations,Manual Therapy, Patient/Caregiver Education, Self-Care/Home Management,Soft Tissue Mobilization, Therapeutic Activities, Therapeutic Exercises Next Visit Focus/Plan Next Note Type Treatment Note Next Visit Plan STM and joint mobilizations, flexibility, strengthening
--- NOTE | 2020-11-29 12:49 | PT.OTN ---
Current Diagnoses Pain in left shoulder (11/29/20) Stiffness of left shoulder, not elsewhere classified (11/29/20) Impingement syndrome of left shoulder (11/29/20) Physical Therapy Treatment Note PT-OP-A Visit Information Start: 10/18/20 14:39 Freq: Status: Active Protocol: Document 11/29/20 12:00 DCW (Rec: 11/29/20 12:48 DCW [id number]) Out-Patient Physical Therapy Visit Information Visit Information Visit Type Treatment Note Visit Start Time 12:00 Visit Stop Time 12:45 Total Visit Minutes 45 Visit Number 6 Number of INVENTORY CONTROL SPECIALIST Visits 0 Evaluation Information Evaluation Date 10/18/20 PT-OP-B Current Condition Start: 10/18/20 14:39 Freq: Status: Active Protocol: Document 10/18/20 12:00 DCW (Rec: 10/18/20 15:08 DCW [id number]) Current Condition History of Current Condition Onset Date s/p 6-7 months Current Complaints Left shoulder pain, stiffness History of Current Condition Pt is a 65 year old male presenting with a 6-7 month history of left shoulder pain and stiffness. Pt notes he doesn't remember instigating injury at that time, but does recall a fall when running in June of 2019, approximately 8 months prior to his pain starting. Pt struggles mainly getting his hand around to reach his back, and also experiences severe pain with external rotation, and has what he refers to as a hard stop. Prior Treatments and Tests X-ray: Degenerative changes are seen, including moderate subacromial spurring. If it would be helpful for clinical management decision making, please consider a dedicated shoulder MRI for further evaluation (assuming that there is no contraindication). If there is strong clinical concern for a labral abnormality, this should be performed according to the arthrogram protocol. -per Harish Chahal M.D. on PT-OP-C Subjective Start: 10/18/20 14:39 Freq: Status: Active Protocol: Document 11/29/20 12:00 DCW (Rec: 11/29/20 12:49 DCW [id number]) OP-PT Subjective Patient Comments Patient Comments Pt notes that the gains we've made are still there, but so are the limitations. PT-OP-E Functional Tests Start: 10/18/20 14:39 Freq: Status: Active Protocol: Document 10/18/20 12:00 DCW (Rec: 10/18/20 15:08 [facility] [id number]) Functional Tests Apley's Scratch Test Action 1- Left Posterior opposite shoulder Action 1- Right Posterior opposite shoulder Action 2- Left T5 Action 2- Right T5 Action 3- Left Left PSIS Action 3- Right T8 PT-OP-F Manual Assessment Start: 10/18/20 14:39 Freq: Status: Active Protocol: Document 10/18/20 12:00 DCW (Rec: 10/18/20 15:08 [facility] [id number]) Manual Assessments Soft Tissue Assessment Soft Tissue Mobility Assessment Tenderness to palpation 2/4: Pain with wincing along subacromial space through insertion of supraspinatus. Joint Mobility Assessment Joint Mobility Assessment HARD end feel at 40? external rotation PT-OP-K Range of Motion Start: 10/18/20 14:39 Freq: Status: Active Protocol: Document 10/18/20 12:00 DCW (Rec: 10/18/20 15:08 [facility] [id number]) Shoulder Goniometric Range of Motion Shoulder Left Passive Shoulder ROM WFL No Testing Position Sitting Flexion 180 Abduction 180 External Rotation at 0 degrees Abduction 40 Left Active Shoulder ROM WFL No Testing Position Sitting Flexion 180 Abduction 180 External Rotation at 0 degrees Abduction 40 Internal Rotation Behind Back (text) L PSIS PT-OP-L Special Tests Start: 10/18/20 14:39 Freq: Status: Active Protocol: Document 10/18/20 12:00 DCW (Rec: 10/18/20 15:08 [facility] [id number]) Special Tests Shoulder Special Tests Yergason's Biceps Test Results Negative Speed's Biceps Test Results Negative Painful Arc Test Results Positive L Passive ER Rotator Cuff Test Results Hard end feel at 40? Pham Alin Impingement Test Results Positive L Grind Labrum Test Results Positive L Biceps Load II Test Test Results Negative Clunk Test Test Results Positive L Belly Press Test Results Positive L PT-OP-M Strength Start: 10/18/20 14:39 Freq: Status: Active Protocol: Document 10/18/20 12:00 DCW (Rec: 10/18/20 15:08 [facility] [id number]) Shoulder Strength Shoulder Manual Muscle Testing Left Flexion 4 Good Abduction (C5) 4 Good Adduction 4 Good External Rotation 3 Fair Internal Rotation 4 Good PT-OP-Q Treatments Start: 10/18/20 14:39 Freq: Status: Active Protocol: Document 11/29/20 12:00 DCW (Rec: 11/29/20 12:48 DCW [id number]) Therapeutic Exercises Standing Exercises 5 Standing Exercise Name Shoulder Extension Side bilateral Resistance Lv 3 Equipment Used T-band 4 Standing Exercise Name Rows Side bilateral Resistance Lv 3 Equipment Used T-band Manual Therapy Treatment Soft Tissue Mobilization 3 Body Location L Upper trap Mobilization Type Strumming,Sustained Pressure Body Position Supine 2 Body Location L Parascapulars Mobilization Type Strumming,Sustained Pressure Body Position Supine 1 Body Location L Pec Mobilization Type Strumming,Sustained Pressure Body Position Supine Joint Mobilizations 1 Joint L GH Direction A->P Grade III PT-OP-T Assessment and Plan Start: 10/18/20 14:39 Freq: Status: Active Protocol: Document 11/29/20 12:00 DCW (Rec: 11/29/20 12:48 DCW [id number]) Physical Therapy Assessment Impairments Impairments Activity Tolerance,Functional Activities,Functional Mobility ,Pain,ROM,Soft Tissue Mobility ,Strength Goals Three Impairment Pt limited ER to 40? with a hard end feel Can Filler Goal (LTG) Pt to demonstrate increase in ER to 60? LTG Duration 12/16/20 Two Impairment Pt unable to reach back to don jacket sleeve Residential Goal (LTG) Pt to don and doff jacket with no pain or stiffness LTG Duration 12/16/20 One Impairment Pt does not have an appropriate home exercise program Short Term Goal (STG) Pt to be independent and compliant with an appropriate HEP STG Duration 11/18/20 Assessment Summary Assessment Overall pt still improving, however continues to have pain with end range abduction, and displays an anteriorly shifted GH joint Physical Therapy Plan Frequency and Duration Frequency of Treatment 2x/Week Duration of Treatment 10 weeks Plan of Care Start Date 10/18/20 Plan of Care End Date 12/27/20 Therapeutic Interventions Therapeutic Interventions Home Exercise Program,Joint Mobilizations,Manual Therapy, Patient/Caregiver Education, Self-Care/Home Management,Soft Tissue Mobilization, Therapeutic Activities, Therapeutic Exercises Next Visit Focus/Plan Next Note Type Treatment Note Next Visit Plan STM and joint mobilizations, flexibility, strengthening
--- NOTE | 2020-12-13 15:59 | PT.OTN ---
Current Diagnoses Pain in left shoulder (12/13/20) Stiffness of left shoulder, not elsewhere classified (12/13/20) Impingement syndrome of left shoulder (12/13/20) Physical Therapy Treatment Note PT-OP-A Visit Information Start: 10/18/20 14:39 Freq: Status: Active Protocol: Document 12/13/20 15:15 DCW (Rec: 12/13/20 15:59 DCW [id number]) Out-Patient Physical Therapy Visit Information Visit Information Visit Type Treatment Note Visit Start Time 15:15 Visit Stop Time 16:00 Total Visit Minutes 45 Visit Number 7 Number of HOGSHEAD STOCK CLERK Visits 0 Evaluation Information Evaluation Date 10/18/20 PT-OP-B Current Condition Start: 10/18/20 14:39 Freq: Status: Active Protocol: Document 10/18/20 12:00 DCW (Rec: 10/18/20 15:08 DCW [id number]) Current Condition History of Current Condition Onset Date s/p 6-7 months Current Complaints Left shoulder pain, stiffness History of Current Condition Pt is a 65 year old male presenting with a 6-7 month history of left shoulder pain and stiffness. Pt notes he doesn't remember instigating injury at that time, but does recall a fall when running in June of 2019, approximately 8 months prior to his pain starting. Pt struggles mainly getting his hand around to reach his back, and also experiences severe pain with external rotation, and has what he refers to as a hard stop. Prior Treatments and Tests X-ray: Degenerative changes are seen, including moderate subacromial spurring. If it would be helpful for clinical management decision making, please consider a dedicated shoulder MRI for further evaluation (assuming that there is no contraindication). If there is strong clinical concern for a labral abnormality, this should be performed according to the arthrogram protocol. -per Harish Chahal M.D. on PT-OP-C Subjective Start: 10/18/20 14:39 Freq: Status: Active Protocol: Document 12/13/20 15:15 DCW (Rec: 12/13/20 15:59 DCW [id number]) OP-PT Subjective Patient Comments Patient Comments Everything is about the same. PT-OP-E Functional Tests Start: 10/18/20 14:39 Freq: Status: Active Protocol: Document 10/18/20 12:00 DCW (Rec: 10/18/20 15:08 DCW [id number]) Functional Tests Apley's Scratch Test Action 1- Left Posterior opposite shoulder Action 1- Right Posterior opposite shoulder Action 2- Left T5 Action 2- Right T5 Action 3- Left Left PSIS Action 3- Right T8 PT-OP-F Manual Assessment Start: 10/18/20 14:39 Freq: Status: Active Protocol: Document 10/18/20 12:00 DCW (Rec: 10/18/20 15:08 DCW [id number]) Manual Assessments Soft Tissue Assessment Soft Tissue Mobility Assessment Tenderness to palpation 2/4: Pain with wincing along subacromial space through insertion of supraspinatus. Joint Mobility Assessment Joint Mobility Assessment HARD end feel at 40? external rotation PT-OP-K Range of Motion Start: 10/18/20 14:39 Freq: Status: Active Protocol: Document 10/18/20 12:00 DCW (Rec: 10/18/20 15:08 [facility] [id number]) Shoulder Goniometric Range of Motion Shoulder Left Passive Shoulder ROM WFL No Testing Position Sitting Flexion 180 Abduction 180 External Rotation at 0 degrees Abduction 40 Left Active Shoulder ROM WFL No Testing Position Sitting Flexion 180 Abduction 180 External Rotation at 0 degrees Abduction 40 Internal Rotation Behind Back (text) L PSIS PT-OP-L Special Tests Start: 10/18/20 14:39 Freq: Status: Active Protocol: Document 10/18/20 12:00 DCW (Rec: 10/18/20 15:08 [facility] [id number]) Special Tests Shoulder Special Tests Yergaalbino's Biceps Test Results Negative Speed's Biceps Test Results Negative Painful Arc Test Results Positive L Passive ER Rotator Cuff Test Results Hard end feel at 40? Pham Alin Impingement Test Results Positive L Grind Labrum Test Results Positive L Biceps Load II Test Test Results Negative Clunk Test Test Results Positive L Belly Press Test Results Positive L PT-OP-M Strength Start: 10/18/20 14:39 Freq: Status: Active Protocol: Document 10/18/20 12:00 DCW (Rec: 10/18/20 15:08 DCW [id number]) Shoulder Strength Shoulder Manual Muscle Testing Left Flexion 4 Good Abduction (C5) 4 Good Adduction 4 Good External Rotation 3 Fair Internal Rotation 4 Good PT-OP-Q Treatments Start: 10/18/20 14:39 Freq: Status: Active Protocol: Document 12/13/20 15:15 DCW (Rec: 12/13/20 15:59 DCW [id number]) Cardio Equipment Upper Body Ergometer (UBE) Duration (Minutes) 5 RPM 60 Seat Position 12 Height 3 Therapeutic Exercises Standing Exercises 5 Standing Exercise Name Shoulder Extension Side bilateral Resistance Lv 3 Equipment Used T-band 4 Standing Exercise Name Rows Side bilateral Resistance Lv 3 Equipment Used T-band Manual Therapy Treatment Soft Tissue Mobilization 3 Body Location L Upper trap Mobilization Type Strumming,Sustained Pressure Body Position Supine 2 Body Location L Parascapulars Mobilization Type Strumming,Sustained Pressure Body Position Supine 1 Body Location L Pec Mobilization Type Strumming,Sustained Pressure Body Position Supine Joint Mobilizations 1 Joint L GH Direction A->P Grade III PT-OP-T Assessment and Plan Start: 10/18/20 14:39 Freq: Status: Active Protocol: Document 12/13/20 15:15 DCW (Rec: 12/13/20 15:59 DCW [id number]) Physical Therapy Assessment Impairments Impairments Activity Tolerance,Functional Activities,Functional Mobility ,Pain,ROM,Soft Tissue Mobility ,Strength Goals Three Impairment Pt limited ER to 40? with a hard end feel Fpc Goal (LTG) Pt to demonstrate increase in ER to 60? LTG Duration 12/16/20 Two Impairment Pt unable to reach back to don jacket sleeve Cert Occupational Therapy Asst Goal (LTG) Pt to don and doff jacket with no pain or stiffness LTG Duration 12/16/20 One Impairment Pt does not have an appropriate home exercise program Short Term Goal (STG) Pt to be independent and compliant with an appropriate HEP STG Duration 11/18/20 Assessment Summary Assessment Pt presenting with improved pain-free ROM today, though still struggles the most with internal rotation. Physical Therapy Plan Frequency and Duration Frequency of Treatment 2x/Week Duration of Treatment 10 weeks Plan of Care Start Date 10/18/20 Plan of Care End Date 12/27/20 Therapeutic Interventions Therapeutic Interventions Home Exercise Program,Joint Mobilizations,Manual Therapy, Patient/Caregiver Education, Self-Care/Home Management,Soft Tissue Mobilization, Therapeutic Activities, Therapeutic Exercises Next Visit Focus/Plan Next Note Type Treatment Note Next Visit Plan STM and joint mobilizations, flexibility, strengthening
--- NOTE | 2020-12-15 15:59 | PT.OTN ---
Current Diagnoses Pain in left shoulder (12/15/20) Stiffness of left shoulder, not elsewhere classified (12/15/20) Impingement syndrome of left shoulder (12/15/20) Physical Therapy Treatment Note PT-OP-A Visit Information Start: 10/18/20 14:39 Freq: Status: Active Protocol: Document 12/15/20 15:15 DCW (Rec: 12/15/20 15:59 DCW [id number]) Out-Patient Physical Therapy Visit Information Visit Information Visit Type Treatment Note Visit Start Time 15:15 Visit Stop Time 16:00 Total Visit Minutes 45 Visit Number 7 Number of HOST AND HOSTESS Visits 0 Evaluation Information Evaluation Date 10/18/20 PT-OP-B Current Condition Start: 10/18/20 14:39 Freq: Status: Active Protocol: Document 10/18/20 12:00 DCW (Rec: 10/18/20 15:08 DCW [id number]) Current Condition History of Current Condition Onset Date s/p 6-7 months Current Complaints Left shoulder pain, stiffness History of Current Condition Pt is a 65 year old male presenting with a 6-7 month history of left shoulder pain and stiffness. Pt notes he doesn't remember instigating injury at that time, but does recall a fall when running in June of 2019, approximately 8 months prior to his pain starting. Pt struggles mainly getting his hand around to reach his back, and also experiences severe pain with external rotation, and has what he refers to as a hard stop. Prior Treatments and Tests X-ray: Degenerative changes are seen, including moderate subacromial spurring. If it would be helpful for clinical management decision making, please consider a dedicated shoulder MRI for further evaluation (assuming that there is no contraindication). If there is strong clinical concern for a labral abnormality, this should be performed according to the arthrogram protocol. -per Harish Chahal M.D. on PT-OP-C Subjective Start: 10/18/20 14:39 Freq: Status: Active Protocol: Document 12/15/20 15:15 DCW (Rec: 12/15/20 15:59 DCW [id number]) OP-PT Subjective Patient Comments Patient Comments Pt notes his shoulder is sore from being worked last visit . PT-OP-E Functional Tests Start: 10/18/20 14:39 Freq: Status: Active Protocol: Document 10/18/20 12:00 DCW (Rec: 10/18/20 15:08 DCW [id number]) Functional Tests Apley's Scratch Test Action 1- Left Posterior opposite shoulder Action 1- Right Posterior opposite shoulder Action 2- Left T5 Action 2- Right T5 Action 3- Left Left PSIS Action 3- Right T8 PT-OP-F Manual Assessment Start: 10/18/20 14:39 Freq: Status: Active Protocol: Document 10/18/20 12:00 DCW (Rec: 10/18/20 15:08 DCW [id number]) Manual Assessments Soft Tissue Assessment Soft Tissue Mobility Assessment Tenderness to palpation 2/4: Pain with wincing along subacromial space through insertion of supraspinatus. Joint Mobility Assessment Joint Mobility Assessment HARD end feel at 40? external rotation PT-OP-K Range of Motion Start: 10/18/20 14:39 Freq: Status: Active Protocol: Document 10/18/20 12:00 DCW (Rec: 10/18/20 15:08 DC [id number]) Shoulder Goniometric Range of Motion Shoulder Left Passive Shoulder ROM WFL No Testing Position Sitting Flexion 180 Abduction 180 External Rotation at 0 degrees Abduction 40 Left Active Shoulder ROM WFL No Testing Position Sitting Flexion 180 Abduction 180 External Rotation at 0 degrees Abduction 40 Internal Rotation Behind Back (text) L PSIS PT-OP-L Special Tests Start: 10/18/20 14:39 Freq: Status: Active Protocol: Document 10/18/20 12:00 DCW (Rec: 10/18/20 15:08 [facility] [id number]) Special Tests Shoulder Special Tests Yergason's Biceps Test Results Negative Speed's Biceps Test Results Negative Painful Arc Test Results Positive L Passive ER Rotator Cuff Test Results Hard end feel at 40? Pham Alin Impingement Test Results Positive L Grind Labrum Test Results Positive L Biceps Load II Test Test Results Negative Clunk Test Test Results Positive L Belly Press Test Results Positive L PT-OP-M Strength Start: 10/18/20 14:39 Freq: Status: Active Protocol: Document 10/18/20 12:00 DCW (Rec: 10/18/20 15:08 DCW [id number]) Shoulder Strength Shoulder Manual Muscle Testing Left Flexion 4 Good Abduction (C5) 4 Good Adduction 4 Good External Rotation 3 Fair Internal Rotation 4 Good PT-OP-Q Treatments Start: 10/18/20 14:39 Freq: Status: Active Protocol: Document 12/15/20 15:15 DCW (Rec: 12/15/20 15:59 DCW [id number]) Cardio Equipment Upper Body Ergometer (UBE) Duration (Minutes) 5 RPM 60 Seat Position 12 Height 3 Therapeutic Exercises Supine Exercises 1 Supine Exercise Name IR/ER in 90/90 Side left Resistance 1.5 kg ball Standing Exercises 5 Standing Exercise Name Shoulder Extension Side bilateral Resistance Lv 3 Equipment Used T-band 4 Standing Exercise Name Rows Side bilateral Resistance Lv 3 Equipment Used T-band Manual Therapy Treatment Soft Tissue Mobilization 3 Body Location L Upper trap Mobilization Type Strumming,Sustained Pressure Body Position Supine 2 Body Location L Parascapulars Mobilization Type Strumming,Sustained Pressure Body Position Supine 1 Body Location L Pec Mobilization Type Strumming,Sustained Pressure Body Position Supine Joint Mobilizations 1 Joint L GH Direction A->P Grade III PT-OP-T Assessment and Plan Start: 10/18/20 14:39 Freq: Status: Active Protocol: Document 12/15/20 15:15 DCW (Rec: 12/15/20 15:59 DCW [id number]) Physical Therapy Assessment Impairments Impairments Activity Tolerance,Functional Activities,Functional Mobility ,Pain,ROM,Soft Tissue Mobility ,Strength Goals Three Impairment Pt limited ER to 40? with a hard end feel Long-Term Goal (LTG) Pt to demonstrate increase in ER to 60? LTG Duration 12/16/20 Two Impairment Pt unable to reach back to don jacket sleeve Long-Term Goal (LTG) Pt to don and doff jacket with no pain or stiffness LTG Duration 12/16/20 One Impairment Pt does not have an appropriate home exercise program Short Term Goal (STG) Pt to be independent and compliant with an appropriate HEP STG Duration 11/18/20 Assessment Summary Assessment Pt recently demonstrating much better seating of the GH joint, significantly less tone in pec. Physical Therapy Plan Frequency and Duration Frequency of Treatment 2x/Week Duration of Treatment 10 weeks Plan of Care Start Date 10/18/20 Plan of Care End Date 12/27/20 Therapeutic Interventions Therapeutic Interventions Home Exercise Program,Joint Mobilizations,Manual Therapy, Patient/Caregiver Education, Self-Care/Home Management,Soft Tissue Mobilization, Therapeutic Activities, Therapeutic Exercises Next Visit Focus/Plan Next Note Type Treatment Note Next Visit Plan STM and joint mobilizations, flexibility, strengthening
--- NOTE | 2020-12-20 16:08 | PT.OTN ---
Current Diagnoses Pain in left shoulder (12/20/20) Stiffness of left shoulder, not elsewhere classified (12/20/20) Impingement syndrome of left shoulder (12/20/20) Physical Therapy Treatment Note PT-OP-A Visit Information Start: 10/18/20 14:39 Freq: Status: Active Protocol: Document 12/20/20 15:15 DCW (Rec: 12/20/20 16:06 DCW [id number]) Out-Patient Physical Therapy Visit Information Visit Information Visit Type Treatment Note Visit Start Time 15:15 Visit Stop Time 16:00 Total Visit Minutes 45 Visit Number 9 Number of SHIPFITTER APPRENTICE Visits 0 Evaluation Information Evaluation Date 10/18/20 PT-OP-B Current Condition Start: 10/18/20 14:39 Freq: Status: Active Protocol: Document 10/18/20 12:00 DCW (Rec: 10/18/20 15:08 DCW [id number]) Current Condition History of Current Condition Onset Date s/p 6-7 months Current Complaints Left shoulder pain, stiffness History of Current Condition Pt is a 65 year old male presenting with a 6-7 month history of left shoulder pain and stiffness. Pt notes he doesn't remember instigating injury at that time, but does recall a fall when running in June of 2019, approximately 8 months prior to his pain starting. Pt struggles mainly getting his hand around to reach his back, and also experiences severe pain with external rotation, and has what he refers to as a hard stop. Prior Treatments and Tests X-ray: Degenerative changes are seen, including moderate subacromial spurring. If it would be helpful for clinical management decision making, please consider a dedicated shoulder MRI for further evaluation (assuming that there is no contraindication). If there is strong clinical concern for a labral abnormality, this should be performed according to the arthrogram protocol. -per Harish Chahal M.D. on PT-OP-C Subjective Start: 10/18/20 14:39 Freq: Status: Active Protocol: Document 12/20/20 15:15 DCW (Rec: 12/20/20 16:06 DCW [id number]) OP-PT Subjective Patient Comments Patient Comments Pt overall feeling alright today. Patient Questionnaires Quick Dash- Upper Extremity Quick Dash UE Score 38.64% Quick Dash UE Impairment 20 to 39% Impaired (Score 20- 39) PT-OP-E Functional Tests Start: 10/18/20 14:39 Freq: Status: Active Protocol: Document 10/18/20 12:00 DCW (Rec: 10/18/20 15:08 [facility] [id number]) Functional Tests Apley's Scratch Test Action 1- Left Posterior opposite shoulder Action 1- Right Posterior opposite shoulder Action 2- Left T5 Action 2- Right T5 Action 3- Left Left PSIS Action 3- Right T8 PT-OP-F Manual Assessment Start: 10/18/20 14:39 Freq: Status: Active Protocol: Document 10/18/20 12:00 DCW (Rec: 10/18/20 15:08 [facility] [id number]) Manual Assessments Soft Tissue Assessment Soft Tissue Mobility Assessment Tenderness to palpation 2/4: Pain with wincing along subacromial space through insertion of supraspinatus. Joint Mobility Assessment Joint Mobility Assessment HARD end feel at 40? external rotation PT-OP-K Range of Motion Start: 10/18/20 14:39 Freq: Status: Active Protocol: Document 10/18/20 12:00 DCW (Rec: 10/18/20 15:08 [facility] [id number]) Shoulder Goniometric Range of Motion Shoulder Left Passive Shoulder ROM WFL No Testing Position Sitting Flexion 180 Abduction 180 External Rotation at 0 degrees Abduction 40 Left Active Shoulder ROM WFL No Testing Position Sitting Flexion 180 Abduction 180 External Rotation at 0 degrees Abduction 40 Internal Rotation Behind Back (text) L PSIS PT-OP-L Special Tests Start: 10/18/20 14:39 Freq: Status: Active Protocol: Document 10/18/20 12:00 DCW (Rec: 10/18/20 15:08 [facility] [id number]) Special Tests Shoulder Special Tests Yergason's Biceps Test Results Negative Speed's Biceps Test Results Negative Painful Arc Test Results Positive L Passive ER Rotator Cuff Test Results Hard end feel at 40? Pham Alin Impingement Test Results Positive L Grind Labrum Test Results Positive L Biceps Load II Test Test Results Negative Clunk Test Test Results Positive L Belly Press Test Results Positive L PT-OP-M Strength Start: 10/18/20 14:39 Freq: Status: Active Protocol: Document 10/18/20 12:00 DCW (Rec: 10/18/20 15:08 DCW [id number]) Shoulder Strength Shoulder Manual Muscle Testing Left Flexion 4 Good Abduction (C5) 4 Good Adduction 4 Good External Rotation 3 Fair Internal Rotation 4 Good PT-OP-Q Treatments Start: 10/18/20 14:39 Freq: Status: Active Protocol: Document 12/20/20 15:15 DCW (Rec: 12/20/20 16:06 DCW [id number]) Cardio Equipment Upper Body Ergometer (UBE) Duration (Minutes) 5 RPM 60 Seat Position 12 Height 3 Therapeutic Exercises Supine Exercises 1 Supine Exercise Name IR/ER in 90/90 Side left Resistance 1.5 kg ball Standing Exercises 5 Standing Exercise Name Shoulder Extension Side bilateral Resistance Lv 3 Equipment Used T-band 4 Standing Exercise Name Rows Side bilateral Resistance Lv 3 Equipment Used T-band Manual Therapy Treatment Soft Tissue Mobilization 3 Body Location L Upper trap Mobilization Type Strumming,Sustained Pressure Body Position Supine 2 Body Location L Parascapulars Mobilization Type Strumming,Sustained Pressure Body Position Supine 1 Body Location L Pec Mobilization Type Strumming,Sustained Pressure Body Position Supine Joint Mobilizations 1 Joint L GH Direction A->P Grade III PT-OP-T Assessment and Plan Start: 10/18/20 14:39 Freq: Status: Active Protocol: Document 12/20/20 15:15 DCW (Rec: 12/20/20 16:06 DCW [id number]) Physical Therapy Assessment Impairments Impairments Activity Tolerance,Functional Activities,Functional Mobility ,Pain,ROM,Soft Tissue Mobility ,Strength Goals Three Impairment Pt limited ER to 40? with a hard end feel Skilled Nursing Goal (LTG) Pt to demonstrate increase in ER to 60? LTG Duration 12/16/20 Two Impairment Pt unable to reach back to don jacket sleeve Skilled Nursing Goal (LTG) Pt to don and doff jacket with no pain or stiffness LTG Duration 12/16/20 One Impairment Pt does not have an appropriate home exercise program Short Term Goal (STG) Pt to be independent and compliant with an appropriate HEP STG Duration 11/18/20 Assessment Summary Assessment Pt overall showing improved GH joint placement, less overall tone, however still relatively unchanged with his ability to internally rotate his right shoulder. He continues to demonstrate symptoms that are suggestive of left glenoid labrum impairment. Pt has reached somewhat of a progress plateau , and, unfortunately, another completely separate medical issue has arisen, and therefore pt will be discharged from skilled PT at this time. Physical Therapy Plan Frequency and Duration Frequency of Treatment 2x/Week Duration of Treatment 10 weeks Plan of Care Start Date 10/18/20 Plan of Care End Date 12/27/20 Therapeutic Interventions Therapeutic Interventions Home Exercise Program,Joint Mobilizations,Manual Therapy, Patient/Caregiver Education, Self-Care/Home Management,Soft Tissue Mobilization, Therapeutic Activities, Therapeutic Exercises Next Visit Focus/Plan Next Note Type Treatment Note Next Visit Plan STM and joint mobilizations, flexibility, strengthening
== END 2021-01-06 10:39 ==
LOC: PHYS 15:15
PROVIDERS: Family Provider Family Medicine; PCP Family Medicine; Referring Provider Physician Assistant; Visit Provider Physician Assistant
DX: M25.512 Pain in left shoulder (principal); M75.42 Impingement syndrome of left shoulder; M25.612 Stiffness of left shoulder, not elsewhere classified
CPT/HCPCS: 97110; 97140; 97161

== ENCOUNTER → 2021-01-12 13:14 | Outpatient (CLI) | payer OTHER, SELFPAY ==
[2021-01-12] MEDS: COVID-19 VACC #1, MRNA(MOD) 100 MCG/0.5 ML VIAL IM (13:20)
== END ==
PROVIDERS: Family Provider Family Medicine; PCP Family Medicine; Visit Provider Internal Medicine
DX: Z23 Encounter for immunization (principal)
CPT/HCPCS: 0011A; 91301

== ENCOUNTER → 2021-02-09 08:40 | Outpatient (CLI) | payer OTHER, SELFPAY ==
[2021-02-09] MEDS: COVID-19 VACC #2, MRNA(MOD) 100 MCG/0.5 ML VIAL IM (08:47)
== END ==
PROVIDERS: Family Provider Family Medicine; PCP Family Medicine; Visit Provider Internal Medicine
DX: Z23 Encounter for immunization (principal)
CPT/HCPCS: 0012A; 91301

== ENCOUNTER → 2021-04-26 08:49 | Outpatient (CLI) | payer OTHER, SELFPAY ==
[2021-04-26 10:20] LABS: Cholesterol 145 mg/dL (140-199); HDL Cholesterol 53 mg/dL (40-60); LDL Cholesterol Calculated 72 mg/dL (<100); Triglycerides 98 mg/dL (35-150)
== END ==
PROVIDERS: Family Provider Family Medicine; PCP Family Medicine; Referring Provider Internal Medicine Cardiovascular Disease; Visit Provider Internal Medicine Cardiovascular Disease
DX: I25.10 Atherosclerotic heart disease of native coronary artery without angina pectoris (principal); I25.84 Coronary atherosclerosis due to calcified coronary lesion
CPT/HCPCS: 36415; 80061

== ENCOUNTER → 2021-06-20 15:46 | Outpatient (CLI) | payer OTHER, SELFPAY ==
--- NOTE | 2021-06-20 | DI.ECHO.S_ITS ---
[facility]---------+ [facility] +---------+ : : [address] : : : : [id number] : : : : Phone: [phone] +---------+ Echocardiogram Report + + :Name: GENOVEVA ANDREW Study Date: 06/20/2021 Height: 72 in : :[facility] ReadingLocation: Weight: 210 lb : : Gender: Male BSA: 2.2 m2 : :: 1955 Age: 66 yrs BP: 162/97 mmHg: :Reason For Study: SOB : :Ordering Physician: ENRIQUE, : :RADHA Performed By: Niya Liu : :Referring: RADHA MILLAN : + + Interpretation Summary 1) Normal left ventricular thickness, size, wall motion, and systolic function (EF 60-65%). 2) Normal right ventricular size and function. 3) There is mild aortic regurgitation. 4) The aortic root is mildly dilated at 4.1cm. 5) Hypertension present during the study (BP 162/97mmHg). 6) Compared to the Echo done 04/23/2019, aorta diameter has increased slightly from 4.0 to 4.1cm on this study. Procedure: A two-dimensional transthoracic echocardiogram with color flow and Doppler was performed. The study quality was technically adequate. Comparison is made with the echocardiogram of 04/23/2019. The patient was in sinus rhythm with heart rates between 72-85 bpm during the exam. Left Ventricle: The left ventricle is normal in size and wall thickness. The ejection fraction is estimated to be 60-65%. Left ventricular systolic function appears normal without focal wall motion abnormalities. Diastolic parameters suggest a relaxation abnormality of the left ventricle, consistent with probable normal filling pressures. Right Ventricle: The right ventricle is normal in size and function. Atria: The left atrium is moderately dilated. Right atrial size is normal. There is no Doppler evidence for an interatrial shunt. Mitral Valve: The mitral valve is normal in structure and function. There is trace mitral regurgitation. Aortic Valve: The aortic valve is trileaflet. The aortic valve opens well. There is no aortic valve stenosis. There is mild aortic regurgitation. Tricuspid Valve: The tricuspid valve is normal in structure and function. There is mild tricuspid regurgitation. The right ventricular systolic pressure is estimated to be at least 21 mmHg based on an estimated right atrial pressure of 3 mm Hg. Pulmonic Valve: The pulmonic valve leaflets are thin and pliable; valve motion is normal. There is no pulmonic valvular regurgitation. Great Vessels: The aortic root is mildly dilated. The ascending aorta is mildly enlarged. The IVC is of normal diameter and collapses greater than 50% with a sniff. This suggests a low right atrial pressure of 3 mm Hg. Pericardium/ Pleura There is no pericardial effusion. There is no pleural effusion. MMode/2D Measurements & Calculations LVIDd: 5.5 cm LVOT diam: 2.3 cm LVIDs: 3.5 cm Ao root diam: 4.1 cm FS: 35.7 % asc Aorta Diam: 4.0 cm IVSd: 1.0 cm Ao Arch Diam (Prox Trans): 2.8 cm LVPWd: 0.88 cm LV mcdaniel. diameter/BSA (cm/m^2): 2.5 LV sys. diameter/BSA (cm/m^2): 1.6 LA A2 area: 26.3 cm2 RA long axis: 5.7 cm LA A4 area: 22.1 cm2 RA area: 18.2 cm2 LA length (vol): 6.1 cm RA vol: 49.5 ml LA vol: 80.4 ml RA : 22.7 ml/m2 LA vol index: 37.0 ml/m2 IVC diam: 1.1 cm RVD1 (basal): 2.9 cm TAPSE: 1.9 cm Doppler Measurements & Calculations Ao V2 max: 127.4 cm/sec LVOT Max Riky: 102.7 cm/sec Ao V2 mean: 89.6 cm/sec LV V1 max P.2 mmHg Ao max P.5 mmHg LV V1 VTI: 19.7 cm Ao mean P.6 mmHg TATO(I,D): 3.4 cm2 Ao V2 VTI: 24.2 cm TATO(V,D): 3.3 cm2 sev ratio: 0.81 TATO indexed to BSA (cm^2/m^2): 1.6 MV E max riky: 54.0 cm/sec TR max riky: 214.3 cm/sec MV A max riky: 84.4 cm/sec TR max P.4 mmHg MV E/A: 0.64 PA V2 max: 104.1 cm/sec Med Peak E' Riky: 4.6 cm/sec PA V2 mean: 75.2 cm/sec E/E' med: 11.8 PA mean P.5 mmHg Lat Peak E' Riky: 7.0 cm/sec PA pr(Accel): 36.2 mmHg E/E' lat: 7.7 E/e' average: 9.7 MV dec time: 0.27 sec SV(OT): 81.8 ml Reading Physician:09:15 AM
== END ==
PROVIDERS: Family Provider Family Medicine; PCP Family Medicine; Referring Provider Internal Medicine Cardiovascular Disease; Visit Provider Internal Medicine Cardiovascular Disease
DX: I08.2 Rheumatic disorders of both aortic and tricuspid valves (principal); I77.89 Other specified disorders of arteries and arterioles; I77.810 Thoracic aortic ectasia; R06.02 Shortness of breath
CPT/HCPCS: 93306

== ENCOUNTER 2022-02-05 10:09 | Emergency (ER) | payer OTHER, SELFPAY ==
[2022-02-05 10:15] VITALS: BP 163/90; PULSE 88; RESP 20; TEMP 36.7; O2SAT 99
--- NOTE | 2022-02-05 10:16 | ED_ITS ---
HPI - SOB/Dyspnea General Chief Complaint: Shortness of Breath/Dyspnea Stated Complaint: Fatigued, SOB. hx of pneumonia and chemo therapy Time Seen by Provider: 02/05/22 10:10 History of Present Illness HPI Narrative: 66-year-old male nonsmoker with history of non-Hodgkin's lymphoma that had been treated by chemotherapy by the [facility] until fall, pneumonia, Swenson's esophagus presents with many weeks if not longer of gradually worsening fatigue and exhaustion. He has become short of breath with no explanation in addition. He denies any fever or chills. He denies nausea or vomiting. He denies any change in his medications or diet. He has had no recent travel. He denies any chest pain. Related Data Home Medications Medication Instructions Recorded Confirmed cholecalciferol (vitamin D3) 50 1 tab PO Q DAY #0 09/26/17 01/03/21 mcg (2,000 unit) capsule (Vitamin D3) multivitamin (Multiple Vitamins) 1 tab PO QDAY #0 09/26/17 01/03/21 albuterol sulfate 90 mcg/actuation 1 inh INHALATION QID PRN 05/03/20 01/03/21 aerosol inhaler (Ventolin HFA) ferrous sulfate 325 mg (65 mg 325 mg PO DAILY 05/03/20 01/03/21 iron) tablet omeprazole 20 mg capsule,delayed 20 mg PO DAILY 09/06/20 01/03/21 release Previous Rx's Medication Instructions Recorded diltiazem HCl 180 mg See Rx Instructions .ROUTE 03/24/21 capsule,extended release 24 hr .COMPLEX #90 cap acyclovir 400 mg tablet 400 mg PO BID PRN #30 tab 08/02/21 hydroxyzine HCl 10 mg tablet 10 mg PO TID PRN #15 tab 01/31/22 losartan 100 mg tablet 100 mg PO DAILY #30 tab 02/05/22 Allergies Allergy/AdvReac Type Severity Reaction Status Date / Time No Known Drug Allergies Allergy Verified 02/05/22 10:33 Review of Systems Review of Systems Narrative: GENERAL: See HPI HEENT: Denies sinus pain, ear pain, sore throat, difficulty swallowing, dizziness. RESPIRATORY: See HPI CARDIOVASCULAR: Denies chest pain, palpitations, orthopnea, edema, GASTROINTESTINAL: Denies nausea, vomiting, abdominal pain, diarrhea, constipation, melena. : Denies dysuria, frequency, incontinence, hematuria, urinary retention. MUSCULOSKELETAL: denies weakness, joint pain, or bony pain SKIN: Denies rash, skin lesions, or other NEUROLOGIC: Denies weakness, headache, numbness, change in speech, confusion, seizures, incoordination. PSYCHIATRIC: No concerning psychosocial issues. 12 point review of systems is negative except for those stated above Patient History Medical History Anxiety (2015) Barretts esophagus Chronic cough Collapsed lung (1974) Colon polyps (~2008) Depression (2015) Fracture of right upper extremity (~1965) Hayfever Herpes (~1979) Hypertension (2005) Iron deficiency anemia Kidney stones (1991) Measles Mumps NHL (non-Hodgkin's lymphoma) (1999) Skin problem (2004) Sleep apnea WPW (Afsgd-Qytbolcej-Hzrvg syndrome) (2009) Surgical History Anesthesia History of cardiac radiofrequency ablation (RFA) (2009) History of colonoscopy (~2008) History of surgery on arm (~1964) Status post appendectomy (~1959) Family History Child Cancer Brain cancer Father Cancer Cancer of jaw bone Grandfather Cancer Brain cancer Grandmother Cancer Grandmother Heart disease Heart attack Grandfather No problems noted. Mother Stroke Social History marital status: unknown household members: none occupational status: employed Smoking Status: Never smoker alcohol intake: current substance use type: does not use Smoking Status: Never smoker alcohol intake frequency: holidays/special occasions only Substance Use Type: does not use Exam Narrative Exam Narrative: GENERAL: 66 year old patient appears stated age. Well-developed patient, in mild distress. HEAD: Atraumatic. Normocephalic. EYES: Pupils equal round and reactive. Extraocular motions intact. No scleral icterus. No injection or drainage. ENT: Nose without bleeding, purulent drainage. Throat without erythema, tonsillar hypertrophy or exudate. Airway patent. NECK: Trachea midline. Non tender CARDIOVASCULAR: Regular rate and rhythm without murmurs, gallops, or rubs. RESPIRATORY: Clear to auscultation. Breath sounds equal bilaterally. No wheezes, rales, or rhonchi. GASTROINTESTINAL: Abdomen soft, non-tender, nondistended. EXTREMITIES: No edema or joint tenderness. BACK: Nontender without deformity or crepitance. No flank tenderness. NEURO: AOx3. SKIN: No rash or erythema of visible areas Initial Vital Signs Initial Vital Signs: Vital Signs Temperature 98.1 F 02/05/22 10:15 Pulse Rate 88 02/05/22 10:15 Respiratory Rate 20 02/05/22 10:15 Blood Pressure 163/90 H 02/05/22 10:15 Pulse Oximetry 99 02/05/22 10:15 Course Orders Ordered: ED Orders 02/05/22 10:25 COVID19 -Nasal RAPID/Pre-Proc Stat Complete Blood Count AUTO DIFF Stat Comprehensive Metabolic Panel Stat D Dimer Stat Lipase Stat NT-proBNP (BNP-Adult 18+) Stat Procalcitonin Stat Prothrombin Time INR Stat Troponin & CK Cardiac Panel Stat 02/05/22 10:32 XR chest 2V Stat Discontinued Medications Sodium Chloride (Normal Saline 0.9%) 1,000 mls @ 150 mls/hr IV CONT YENIFER Last Admin: 02/05/22 11:11 Dose: Not Given Documented by: ANSELMO Vital Signs Vital signs: Vital Signs - 8 hr 02/05/22 11:00 Pulse Rate 77 Blood Pressure 149/78 H Pulse Oximetry 98 MDM - SOB/Dyspnea Lab Data Result diagrams: 02/05/22 10:25 02/05/22 10:25 Labs: Lab Results 02/05/22 02/05/22 02/05/22 Range/Units 10:25 10:25 10:25 WBC 5.3 (4.5-11.0) X10^3/uL RBC 4.49 L (4.5-5.9) X10^6/uL Hgb 13.9 (13.5-17.5) g/dL Hct 41.7 (41-53) % MCV 92.8 (80-100) fL MCH 31.0 (26-34) PG MCHC 33.4 (30-36) % RDW 13.7 (11.6-14.8) % Plt Count 197 (150-400) X10^3/uL Neut % (Auto) 69.7 (50-75) % Lymph % (Auto) 18.3 L (25-40) % [place] % (Auto) 7.8 (3-14) % Eos % (Auto) 3.5 (2-4) % Baso % (Auto) 0.7 (0-2) % Neut # (Auto) 3700 (0045-3218) /uL Lymph # (Auto) 1000 L (0697-9322) /uL [place] # (Auto) 400 (0-900) /uL Eos # (Auto) 200 (0-450) /uL Baso # (Auto) 0 (0-100) /uL PT 11.6 (10.1-12.7) SECONDS INR 1.0 (0.9-1.3) D-Dimer < 200 (<230) ng/mL Sodium 142 (137-145) mmol/L Potassium 3.7 (3.4-5.1) mmol/L Chloride 106 (98-107) mmol/L Carbon Dioxide 32 (22-32) mmol/L BUN 18 (9-20) mg/dL Creatinine 0.93 (0.66-1.25) mg/dL Estimated GFR > 60 (>60) mL/min BUN/Creatinine Ratio 19.4 (6-22) Glucose 110 (80-110) mg/dL Calcium 9.4 (8.4-10.2) mg/dL Total Bilirubin 1.1 (0.2-1.3) mg/dL AST 39 (17-59) IU/L ALT 34 (<50) IU/L Alkaline Phosphatase 73 (38-126) U/L Total Creatine Kinase 197 H (55-170) U/L CK-MB (CK-2) 3.08 H (<2.37) ng/mL CK-MB (CK-2) Rel Index 1.6 (1.5-5.0) % Troponin I < 0.012 (0.01-0.034) ng/mL NT-Pro-B Natriuret Pep 105 (<125) pg/mL Total Protein 6.9 (6.3-8.2) g/dL Albumin 4.6 (3.5-5.0) g/dL Globulin 2.3 (1.7-4.1) g/dL Albumin/Globulin Ratio 2.0 (1.0-2.8) Lipase 39 (23-300) U/L Procalcitonin 0.06 (<0.5) ng/mL SARS-CoV-2 (PCR) (Negative) 02/05/22 Range/Units 10:25 WBC (4.5-11.0) X10^3/uL RBC (4.5-5.9) X10^6/uL Hgb (13.5-17.5) g/dL Hct (41-53) % MCV (80-100) fL MCH (26-34) PG MCHC (30-36) % RDW (11.6-14.8) % Plt Count (150-400) X10^3/uL Neut % (Auto) (50-75) % Lymph % (Auto) (25-40) % [place] % (Auto) (3-14) % Eos % (Auto) (2-4) % Baso % (Auto) (0-2) % Neut # (Auto) (8256-9965) /uL Lymph # (Auto) (2934-1606) /uL [place] # (Auto) (0-900) /uL Eos # (Auto) (0-450) /uL Baso # (Auto) (0-100) /uL PT (10.1-12.7) SECONDS INR (0.9-1.3) D-Dimer (<230) ng/mL Sodium (137-145) mmol/L Potassium (3.4-5.1) mmol/L Chloride (98-107) mmol/L Carbon Dioxide (22-32) mmol/L BUN (9-20) mg/dL Creatinine (0.66-1.25) mg/dL Estimated GFR (>60) mL/min BUN/Creatinine Ratio (6-22) Glucose (80-110) mg/dL Calcium (8.4-10.2) mg/dL Total Bilirubin (0.2-1.3) mg/dL AST (17-59) IU/L ALT (<50) IU/L Alkaline Phosphatase (38-126) U/L Total Creatine Kinase (55-170) U/L CK-MB (CK-2) (<2.37) ng/mL CK-MB (CK-2) Rel Index (1.5-5.0) % Troponin I (0.01-0.034) ng/mL NT-Pro-B Natriuret Pep (<125) pg/mL Total Protein (6.3-8.2) g/dL Albumin (3.5-5.0) g/dL Globulin (1.7-4.1) g/dL Albumin/Globulin Ratio (1.0-2.8) Lipase (23-300) U/L Procalcitonin (<0.5) ng/mL SARS-CoV-2 (PCR) Negative (Negative) Imaging Data Chest x-ray: Radiologist's Impression: Launch?Image [address] [address] XRay Report Signed Patient: Rahul Tabares MR#: [id number] : 1955 Acct:[id number] Age/Sex: 66 / M Date of Service: 02/05/22 Loc: ED Accession Number: [id number] ?? Procedure: XR chest 2V Ordering Provider: Sanchez Dale D.O. PROCEDURE:? XR CHEST 2V ? INDICATIONS:? SOB, fatigue ? TECHNIQUE:? 2 views of the chest were acquired.? ? COMPARISON:? [facility], , XR CHEST 2V, 05/04/2020, 12:16. ? FINDINGS:? ? Surgical changes and devices:? Tunneled right port device is present. ? Lungs and pleura:? Lungs are clear.? No pleural effusions or pneumothorax.? ? Mediastinum:? Mediastinal contours are normal.? Heart size is normal.? ? Bones and chest wall:? No suspicious bony abnormalities.? Soft tissues appear unremarkable.? ? IMPRESSION:? No acute cardiopulmonary abnormalities or focal airspace disease. ? Dictated by: Cristóbal Membreno M.D. on 02/05/2022 at 11:36 ? ? Approved by: Cristóbal Membreno M.D. on 02/05/2022 at 11:37 ? ECG Data Interpretation: EKG is normal sinus rhythm rate [ 82] and free of any signs of ischemia or ectopy. No ST segmental elevation or depression. No T wave inversions MDM Narrative Medical decision making narrative: Multiple etiologies for patient's symptoms considered including: [Pneumonia v ersus anemia versus renal failure versus other electrolyte abnormality versus other Patient's symptoms improved over duration of stay with above-stated therapies. Findings and discharge diagnosis discussed with patient/family followed by verbalization of understanding Return precautions discussed with patient/family whom verbalize understanding. Discharge Plan Departure Patient Disposition: Home Clinical Impression: Fatigue Instructions: DI for Fatigue Activity Restrictions/Additional Instructions: *You have been diagnosed with [fatigue and shortness of breath. As we discussed your history and physical exam are very reassuring, your labs at suggest against any infection, anemia, chest x-ray shows pneumonia. *What to do: *Please continue to take your regular medications as directed. [ ] New medication prescriptions sent to your pharmacy: [ ] [ ] New medication written as a paper prescription [x ] No new medications given *Please follow up with your primary care provider in 2-3 days, call for an appointment. Let them know you were seen in the Emergency Department and that we ask that you be seen in follow up. We will electronically transmit a record of today's note if your PCP is in our system *If you do not have a primary care provider please contact the [facility] Resource line at [phone]. They will ask some questions about your medical history and help get you set up with a doctor in the community. *Return to Emergency Department if you should have any new, worsening or concerning symptoms, such as [fever greater than 101 F, shaking chills, worsening pain, persistent vomiting or other bothersome symptoms] Prescriptions: No Action omeprazole 20 mg capsule,delayed release(DR/EC) 20 mg PO DAILY 0RF hydroxyzine HCl 10 mg tablet 10 mg PO TID PRN (Reason: anxiety) Qty: 15 2RF losartan 100 mg tablet 100 mg PO DAILY Qty: 30 0RF multivitamin [Multiple Vitamins] 1 EACH tablet 1 tab PO QDAY Qty: 0 0RF cholecalciferol (vitamin D3) [Vitamin D3] 2,000 UNIT capsule 1 tab PO Q DAY Qty: 0 0RF diltiazem HCl 180 mg capsule,extended release 24hr See Rx Instructions .ROUTE .COMPLEX Qty: 90 3RF Dose Instruction: take 1 capsule by mouth once daily Rx Instructions: take 1 capsule by mouth once daily acyclovir 400 mg tablet 400 mg PO BID PRN (Reason: herpes) Qty: 30 1RF ferrous sulfate 325 mg (65 mg iron) Tablet 325 mg PO DAILY 0RF albuterol sulfate [Ventolin HFA] 90 mcg/actuation Hfa Aerosol Inhaler 1 inh INHALATION QID PRN (Reason: Dyspnea) 0RF Referrals: Laura Lackey MD [Primary Care Provider] -
[2022-02-05 10:18] VITALS: BP 163/90; PULSE 88; O2SAT 98
[2022-02-05 10:30] VITALS: BP 155/80; PULSE 80; RESP 12; O2SAT 98
--- NOTE | 2022-02-05 10:32 | DI.RAD.S_ITS ---
PROCEDURE: XR CHEST 2V INDICATIONS: SOB, fatigue TECHNIQUE: 2 views of the chest were acquired. COMPARISON: [facility], CR, XR CHEST 2V, 05/04/2020, 12:16. FINDINGS: Surgical changes and devices: Tunneled right port device is present. Lungs and pleura: Lungs are clear. No pleural effusions or pneumothorax. Mediastinum: Mediastinal contours are normal. Heart size is normal. Bones and chest wall: No suspicious bony abnormalities. Soft tissues appear unremarkable. IMPRESSION: No acute cardiopulmonary abnormalities or focal airspace disease. Dictated by: Cristóbal Membreno M.D. on 02/05/2022 at 11:36 Approved by: Cristóbal Membreno M.D. on 02/05/2022 at 11:37
[2022-02-05 10:41] LABS: Add Manual Diff / Slide Review NO; Basophils Absolute Auto 0 /uL (0-100); Basophils Percent Auto 0.7 % (0-2); Eosinophils Absolute Auto 200 /uL (0-450); Eosinophils Percent Auto 3.5 % (2-4); Hematocrit 41.7 % (41-53); Hemoglobin 13.9 g/dL (13.5-17.5); Lymphocytes Absolute Auto 1000 /uL (1100-4500); Lymphocytes Percent Auto 18.3 % (25-40); Mean Corpuscular HGB Conc 33.4 % (30-36); Mean Corpuscular Volume 92.8 fL (80-100); Monocytes Absolute Auto 400 /uL (0-900); Monocytes Percent Auto 7.8 % (3-14); Neutrophils Absolute Auto 3700 /uL (1500-7000); Neutrophils Percent Auto 69.7 % (50-75); Platelet Count 197 X10^3/uL (150-400); Red Blood Cell Count 4.49 X10^6/uL (4.5-5.9); Red Cell Distribution Width 13.7 % (11.6-14.8); White Blood Cell Count 5.3 X10^3/uL (4.5-11.0)
[2022-02-05 10:47] LABS: Prothrombin Time 11.6 SECONDS (10.1-12.7)
[2022-02-05 10:53] LABS: Alanine Aminotransferase 34 IU/L (<50); Albumin 4.6 g/dL (3.5-5.0); Alkaline Phosphatase 73 U/L (38-126); Aspartate Aminotransferase 39 IU/L (17-59); BUN Creatinine Ratio 19.4 (6-22); Bilirubin Total 1.1 mg/dL (0.2-1.3); Blood Urea Nitrogen 18 mg/dL (9-20); Calcium 9.4 mg/dL (8.4-10.2); Carbon Dioxide 32 mmol/L (22-32); Chloride 106 mmol/L (98-107); Creatine Kinase 197 U/L (55-170); Estimated Glomerular Filt Rate > 60 mL/min (>60); Globulin 2.3 g/dL (1.7-4.1); Glucose 110 mg/dL (80-110); HEMOLYSIS < 15 (0-50); Lipase 39 U/L (23-300); Potassium 3.7 mmol/L (3.4-5.1); Sodium 142 mmol/L (137-145); Total Protein 6.9 g/dL (6.3-8.2)
[2022-02-05 10:57] LABS: COVID19 -Nasal RAPID Negative (Negative)
[2022-02-05 10:58] LABS: D Dimer < 200 ng/mL (<230)
[2022-02-05 11:00] VITALS: BP 149/78; PULSE 77; O2SAT 98
[2022-02-05 11:05] LABS: NT-proBNP (BNP-Adult 18+) 105 pg/mL (<125); Troponin I < 0.012 ng/mL (0.01-0.034)
[2022-02-05 11:08] LABS: CKMB % Relative Index 1.6 % (1.5-5.0); Creatine Kinase MB 3.08 ng/mL (<2.37)
[2022-02-05 11:09] LABS: Procalcitonin 0.06 ng/mL (<0.5)
== END 2022-02-05 12:08 | disposition home or self-care (01) ==
PROVIDERS: Emergency Provider Emergency Medicine; Family Provider Family Medicine; PCP Family Medicine
DX: R53.83 Other fatigue (principal); R06.02 Shortness of breath; I10 Essential (primary) hypertension; Z20.822 Contact with and (suspected) exposure to COVID-19
CPT/HCPCS: 71046; 80053; 82550; 82553; 83690; 83880; 84145; 84484; 85025; 85379; 85610; 87635; 93005; 99283; 99284; C9803

== ENCOUNTER 2022-05-29 19:03 | Emergency (ER) | payer OTHER, MEDICARE, SELFPAY ==
[2022-05-29] VITALS (10 sets, daily range): BP systolic 154; BP diastolic 99; PULSE 67–87; RESP 16–32; TEMP 36.4; O2SAT 96–100; BMI 27.9
--- NOTE | 2022-05-29 19:19 | DI.RAD.S_ITS ---
PROCEDURE: XR CHEST 2V INDICATIONS: shortness of breath TECHNIQUE: 2 views of the chest were acquired. COMPARISON: [facility], , XR CHEST 2V, 02/05/2022, 11:01. FINDINGS: Surgical changes and devices: None. Lungs and pleura: Lungs are clear. No pleural effusions or pneumothorax. Mediastinum: Mediastinal contours are normal. Heart size is normal. Bones and chest wall: No suspicious bony abnormalities. Soft tissues appear unremarkable. IMPRESSION: No acute cardiopulmonary pathology. No significant changes from previous study. Dictated by: Robi Woodall M.D. on 05/29/2022 at 19:47 Approved by: Robi Woodall M.D. on 05/29/2022 at 19:48
[2022-05-29 19:42] LABS: COVID19 -Nasal RAPID Negative (Negative)
--- NOTE | 2022-05-29 19:45 | PC.NURSE ---
Addendum entered by Augie Jacobs R.N. 05/29/22 19:54: Pt also reporting some stomach upsetness for the past week. Pt reports normal BM today. Original Note: Pt reports chest tightness, sore throat, wheezing and being significantly SOB with his daily walks with a recovery period of about 20-30 mins for the past 2 days. Stat Pt reports hx of cancer in 2020 and pneumonia in 2019.
[2022-05-29 19:57] LABS: Add Manual Diff / Slide Review NO; Basophils Absolute Auto 100 /uL (0-100); Basophils Percent Auto 1.1 % (0-2); Eosinophils Absolute Auto 200 /uL (0-450); Eosinophils Percent Auto 3.8 % (2-4); Hematocrit 43.4 % (41-53); Hemoglobin 14.6 g/dL (13.5-17.5); Lymphocytes Absolute Auto 1200 /uL (1100-4500); Lymphocytes Percent Auto 25.3 % (25-40); Mean Corpuscular HGB Conc 33.7 % (30-36); Mean Corpuscular Hemoglobin 30.8 PG (26-34); Mean Corpuscular Volume 91.6 fL (80-100); Monocytes Absolute Auto 500 /uL (0-900); Monocytes Percent Auto 10.2 % (3-14); Neutrophils Absolute Auto 2900 /uL (1500-7000); Neutrophils Percent Auto 59.6 % (50-75); Platelet Count 210 X10^3/uL (150-400); Red Blood Cell Count 4.74 X10^6/uL (4.5-5.9); Red Cell Distribution Width 13.5 % (11.6-14.8); White Blood Cell Count 4.9 X10^3/uL (4.5-11.0)
[2022-05-29 20:09] LABS: Lactate (Lactic Acid) 0.9 mmol/L (0.7-2.1)
--- NOTE | 2022-05-29 20:09 | ED_ITS ---
HPI - SOB/Dyspnea General Chief Complaint: Shortness of Breath/Dyspnea Stated Complaint: SOB, CONGESTED SORE THROAT, Time Seen by Provider: 05/29/22 19:58 Source: patient Mode of arrival: Ambulatory Limitations: no limitations History of Present Illness HPI Narrative: Patient sees [facility] for non-Hodgkin's lymphoma. Is on chemotherapy. Patient sees Dr. Balbuena for primary care locally. Patient denies any history of heart attack strokes or diabetes. Does not smoke. Patient complains of dyspnea today on his routine walk. This is unusual for him. No chest pain. A little chest tightness but not pain. Patient states in the past week has had postnasal drip. This morning did not feel well. Was not his usual self. More tired and fatigued. No black or bloody stools. No history of blood transfusion but did have iron transfusions. Patient states felt like pneumonia episode in the past with shortness of breath. Had echocardiogram in the past 5 years denies any limb swelling. No unusual weight gain Please see results below Patient had pulmonary function test June 03, 2020. Post test comments results are acceptable and reproducible with good patient effort. Related Data Home Medications Medication Instructions Recorded Confirmed cholecalciferol (vitamin D3) 50 1 tab PO Q DAY ##0 09/26/17 01/03/21 mcg (2,000 unit) capsule (Vitamin D3) multivitamin (Multiple Vitamins 1 tab PO QDAY ##0 09/26/17 01/03/21 tablet) albuterol sulfate 90 mcg/actuation 1 inh inhalation QID PRN Dyspnea 05/03/20 01/03/21 aerosol inhaler (Ventolin HFA) ferrous sulfate 325 mg (65 mg 325 mg PO DAILY 05/03/20 01/03/21 iron) tablet omeprazole 20 mg capsule,delayed 20 mg PO DAILY 09/06/20 01/03/21 release Previous Rx's Medication Instructions Recorded acyclovir 400 mg tablet 400 mg PO BID PRN herpes #30 tabs 08/02/21 hydroxyzine HCl 10 mg tablet 10 mg PO TID PRN anxiety #15 tabs 01/31/22 losartan 100 mg tablet 100 mg PO DAILY #30 tabs 02/05/22 diltiazem HCl 180 mg See Rx Instructions .Route 03/16/22 capsule,extended release 24 hr .COMPLEX #90 caps trazodone 50 mg tablet 50 mg PO BEDTIME #30 tabs 04/20/22 Allergies Allergy/AdvReac Type Severity Reaction Status Date / Time No Known Drug Allergies Allergy Verified 05/29/22 19:18 Review of Systems Review of Systems Narrative: GENERAL: Denies chills, fatigue, malaise, fever, sweats. HEENT: Denies sinus pain, ear pain, positive sore throat, positive postnasal drip RESPIRATORY: Positive for dyspnea, negative cough CARDIOVASCULAR: Denies chest pain, palpitations GASTROINTESTINAL: Denies nausea, vomiting, abdominal pain negative bloody stool : Denies dysuria, frequency, hematuria MUSCULOSKELETAL: denies muscle or bony pain SKIN: Denies rash, skin lesions NEUROLOGIC: Denies weakness, numbness ROS Unobtainable: All systems reviewed & are unremarkable except as noted in HPI and below Patient History Medical History Anxiety (2015) Barretts esophagus Chronic cough Collapsed lung (1974) Colon polyps (~2008) Depression (2015) Fracture of right upper extremity (~1964) Hayfever Herpes (~1979) Hypertension (2005) Iron deficiency anemia Kidney stones (1991) Measles Mumps NHL (non-Hodgkin's lymphoma) (1999) Skin problem (2004) Sleep apnea WPW (Atspl-Pvtfiaqrr-Lyqny syndrome) (2009) Surgical History Anesthesia History of cardiac radiofrequency ablation (RFA) (2009) History of colonoscopy (~2008) History of surgery on arm (~1964) Status post appendectomy (~1959) Family History Child Cancer Brain cancer Father Cancer Cancer of jaw bone Grandfather Cancer Brain cancer Grandmother Cancer Grandmother Heart disease Heart attack Grandfather No problems noted. Mother Stroke Social History marital status: unknown household members: none occupational status: employed Smoking Status: Never smoker alcohol intake: current substance use type: does not use Smoking Status: Never smoker alcohol intake frequency: holidays/special occasions only Substance Use Type: does not use Exam Narrative Exam Narrative: GENERAL: in no distress, not toxic not dyspneic HEAD: Normocephalic. EYES: Pupils equal round No scleral icterus. [place] conjunctiva ENT: Mucous membranes moist. NECK: Trachea midline. CARDIOVASCULAR: Regular rate and rhythm without murmurs RESPIRATORY: Clear to auscultation. Breath sounds equal bilaterally. No wheezes, rales, or rhonchi. Speaking full and quick symptoms since GASTROINTESTINAL: Abdomen soft, non-tender EXTREMITIES: No gross deformities. BACK: No flank tenderness. NEURO: AOx4. SKIN: Warm and dry PSYCH: Not anxious, is cooperative Initial Vital Signs Initial Vital Signs: Vital Signs Temperature 97.6 F 05/29/22 19:14 Pulse Rate 87 05/29/22 19:14 Respiratory Rate 20 05/29/22 19:14 Blood Pressure 154/99 H 05/29/22 19:14 Pulse Oximetry 100 05/29/22 19:14 Oxygen Delivery Method 05/29/22 19:14 Course Course Course Narrative: No new issues during course of stay Orders Ordered: ED Orders 05/29/22 19:18 COVID19 -Nasal RAPID/Pre-Proc Stat 05/29/22 19:19 XR chest 2V Stat Measure peak expiratory flow ONCE RT Consult Eval and Treat Now 05/29/22 19:30 Complete Blood Count AUTO DIFF Stat Comprehensive Metabolic Panel Stat Lactate (Lactic Acid) Stat NT-proBNP (BNP-Adult 18+) Stat Troponin & CK Cardiac Panel Stat 05/29/22 19:38 EKG-12 Lead Stat 05/29/22 20:15 CT angio chest PE protocol Stat 05/29/22 21:28 Respiratory Panel (Film Array) Stat 05/29/22 23:00 Troponin & CK Cardiac Panel Stat Reevaluation(s) Reevaluation #1: 97% room air with a pulse of 92 walking in the hallway without any dyspnea or respiratory complaints. Reviewed results with patient. At this time they are reassuring. Awaiting callback from primary care and likely follow up in the office. Time: 22:44 Reevaluation #2: Reviewed completion of laboratory studies with patient. Patient is symptom- free. No dyspnea. Desires discharge home. Return precautions reviewed with him. He is eager to be discharged home Time: 23:45 Consultations Consultation #1: Spoke with primary care physician Dr. Lackey, she knows patient very well. Would like patient to be discharged home and will follow-up with him this week for re-evaluation. Patient has had extensive workup in the past for dyspnea. Time: 22:55 Vital Signs Vital signs: Vital Signs - 8 hr 05/29/22 19:14 05/29/22 19:35 05/29/22 20:00 Temperature 97.6 F Pulse Rate 87 86 77 Respiratory Rate 20 Blood Pressure 154/99 H Pulse Oximetry 100 99 97 Oxygen Delivery Method Room Air 05/29/22 20:30 05/29/22 21:00 05/29/22 21:30 Temperature Pulse Rate 67 76 77 Respiratory Rate 22 20 32 H Blood Pressure Pulse Oximetry 96 98 99 Oxygen Delivery Method 05/29/22 22:00 05/29/22 22:30 05/29/22 23:00 Temperature Pulse Rate 76 84 75 Respiratory Rate 16 24 20 Blood Pressure Pulse Oximetry 98 98 97 Oxygen Delivery Method 05/29/22 23:30 Temperature Pulse Rate 81 Respiratory Rate 21 Blood Pressure Pulse Oximetry 97 Oxygen Delivery Method MDM - SOB/Dyspnea Differential Diagnosis Differential diagnosis: Likely congestive heart failure, community acquired pneumonia, asthma with exacerbation, pulmonary embolism and other (Upper respiratory infection) Medical Records Medical records narrative: [address] [address] Echocardiography Report Signed Patient: Rahul Andrew MR#: [id number] : 1955 Acct:[id number] Age/Sex: 66 / M Date of Service: 06/20/21 Loc: ECHO Accession Number: [id number] ?? Procedure: EC echo doppler complete Ordering Provider: Radha Millna MD ? [facility]---------+? [facility]? +---------+ : ? :? [address] [place] [address] ? : ? : : ? :? [place], [place] ? : ? : : ? :? [address] ? : ? : : ? : ? Phone: [phone] : ? : [phone]---------[phone]? [phone]? +---------+ ? Echocardiogram Report + + :Name: RAHUL ANDREW Dorothy? Study Date: 06/20/2021 ? Height: 72 in? : :Hospital ? ? ReadingLocation: ? Weight: 210 lb : : ? Gender: Male ? BSA: 2.2 m2? ? : :: 1955? Age: 66 yrs? BP: 162/97 mmHg: :Reason For Study: SOB? : :Ordering Physician: ENRIQUE,? : :RADHA ? Performed By: Niya Liu? : :Referring: RADHA MILLAN? : + + Interpretation Summary 1) Normal left ventricular thickness, size, wall motion, and systolic function (EF 60-65%). 2) Normal right ventricular size and function. 3) There is mild aortic regurgitation. 4) The aortic root is mildly dilated at 4.1cm. 5) Hypertension present during the study (BP 162/97mmHg). 6) Compared to the Echo done 04/23/2019, aorta diameter has increased slightly from 4.0 to 4.1cm on this study. ? Procedure: ? A two-dimensional transthoracic echocardiogram with color flow and Doppler was performed. The study quality was technically adequate. Comparison is made with the echocardiogram of 04/23/2019. The patient was in sinus rhythm with heart rates between 72-85 bpm during the exam. Left Ventricle: ? The left ventricle is normal in size and wall thickness. The ejection fraction is estimated to be 60-65%. Left ventricular systolic function appears normal without focal wall motion abnormalities. Diastolic parameters suggest a relaxation abnormality of the left ventricle, consistent with probable normal filling pressures. Right Ventricle: ? The right ventricle is normal in size and function. Atria: ? The left atrium is moderately dilated. Right atrial size is normal. There is no Doppler evidence for an interatrial shunt. Mitral Valve: ? The mitral valve is normal in structure and function. There is trace mitral regurgitation. Aortic Valve: ? The aortic valve is trileaflet. The aortic valve opens well. There is no aortic valve stenosis. There is mild aortic regurgitation. Tricuspid Valve: ? The tricuspid valve is normal in structure and function. There is mild tricuspid regurgitation. The right ventricular systolic pressure is estimated to be at least 21 mmHg based on an estimated right atrial pressure of 3 mm Hg. Pulmonic Valve: ? The pulmonic valve leaflets are thin and pliable; valve motion is normal. There is no pulmonic valvular regurgitation. Great Vessels: ? The aortic root is mildly dilated. The ascending aorta is mildly enlarged. The IVC is of normal diameter and collapses greater than 50% with a sniff. This suggests a low right atrial pressure of 3 mm Hg. Pericardium/ Pleura ? There is no pericardial effusion. There is no pleural effusion. ? MMode/2D Measurements & Calculations LVIDd: 5.5 cm? LVOT diam: 2.3 cm LVIDs: 3.5 cm? Ao root diam: 4.1 cm FS: 35.7 % ? asc Aorta Diam: 4.0 cm IVSd: 1.0 cm ? Ao Arch Diam (Prox Trans): 2.8 cm LVPWd: 0.88 cm LV mcdaniel. diameter/BSA (cm/m^2): 2.5 LV sys. diameter/BSA (cm/m^2): 1.6 ? LA A2 area: 26.3 cm2 ? RA long axis: 5.7 cm LA A4 area: 22.1 cm2 ? RA area: 18.2 cm2 LA length (vol): 6.1 cm? RA vol: 49.5 ml LA vol: 80.4 ml? RA : 22.7 ml/m2 LA vol index: 37.0 ml/m2 ? IVC diam: 1.1 cm ? RVD1 (basal): 2.9 cm TAPSE: 1.9 cm ? Doppler Measurements & Calculations Ao V2 max: 127.4 cm/sec ? LVOT Max Riky: 102.7 cm/sec Ao V2 mean: 89.6 cm/sec ? LV V1 max P.2 mmHg Ao max P.5 mmHg ? LV V1 VTI: 19.7 cm Ao mean P.6 mmHg? TATO(I,D): 3.4 cm2 Ao V2 VTI: 24.2 cm? TATO(V,D): 3.3 cm2 ? sev ratio: 0.81 ? TATO indexed to BSA (cm^2/m^2): 1.6 ? MV E max riky: 54.0 cm/sec ? TR max riky: 214.3 cm/sec MV A max riky: 84.4 cm/sec ? TR max P.4 mmHg MV E/A: 0.64? PA V2 max: 104.1 cm/sec Med Peak E' Riky: 4.6 cm/sec ? ? ? PA V2 mean: 75.2 cm/sec E/E' med: 11.8? PA mean P.5 mmHg Lat Peak E' Riky: 7.0 cm/sec ? ? ? PA pr(Accel): 36.2 mmHg E/E' lat: 7.7 E/e' average: 9.7 MV dec time: 0.27 sec ? SV(LVOT): 81.8 ml ? Reading Physician:09:15 AM Lab Data Result diagrams: 05/29/22 19:30 05/29/22 19:30 Labs: Lab Results 05/29/22 05/29/22 05/29/22 Range/Units 19:18 19:30 19:30 WBC 4.9 (4.5-11.0) X10^3/uL RBC 4.74 (4.5-5.9) X10^6/uL Hgb 14.6 (13.5-17.5) g/dL Hct 43.4 (41-53) % MCV 91.6 (80-100) fL MCH 30.8 (26-34) PG MCHC 33.7 (30-36) % RDW 13.5 (11.6-14.8) % Plt Count 210 (150-400) X10^3/uL Neut % (Auto) 59.6 (50-75) % Lymph % (Auto) 25.3 (25-40) % [place] % (Auto) 10.2 (3-14) % Eos % (Auto) 3.8 (2-4) % Baso % (Auto) 1.1 (0-2) % Neut # (Auto) 2900 (2992-3182) /uL Lymph # (Auto) 1200 (1892-5189) /uL [place] # (Auto) 500 (0-900) /uL Eos # (Auto) 200 (0-450) /uL Baso # (Auto) 100 (0-100) /uL Sodium 142 (137-145) mmol/L Potassium 4.0 (3.4-5.1) mmol/L Chloride 103 (98-107) mmol/L Carbon Dioxide 32 (22-32) mmol/L BUN 17 (9-20) mg/dL Creatinine 1.02 (0.66-1.25) mg/dL Estimated GFR > 60 (>60) mL/min BUN/Creatinine Ratio 16.7 (6-22) Glucose 112 H (80-110) mg/dL Lactate (0.7-2.1) mmol/L Calcium 9.5 (8.4-10.2) mg/dL Total Bilirubin 0.7 (0.2-1.3) mg/dL AST 40 (17-59) IU/L ALT 38 (<50) IU/L Alkaline Phosphatase 83 (38-126) U/L Total Creatine Kinase (55-170) U/L CK-MB (CK-2) (<2.37) ng/mL CK-MB (CK-2) Rel Index (1.5-5.0) % Troponin I (0.01-0.034) ng/mL NT-Pro-B Natriuret Pep 92 (<125) pg/mL Total Protein 7.1 (6.3-8.2) g/dL Albumin 4.5 (3.5-5.0) g/dL Globulin 2.6 (1.7-4.1) g/dL Albumin/Globulin Ratio 1.7 (1.0-2.8) Chlamy pneumoniae PCR (Not Detect) Adenovirus (PCR) (Not Detect) B. pertussis DNA (PCR) (Not Detecte) B.parapertussis DNA PCR (Not Detecte) Coronavirus OC43 (PCR) (Not Detect) Coronavirus HKU1 (PCR) (Not Detect) Coronavirus 229E (PCR) (Not Detect) SARS-CoV-2 (PCR) Negative (Negative) Coronavirus NL63 (PCR) (Not Detect) Human Metapneumovir PCR (Not Detect) Influenza Type A (PCR) (Not Detect) Influenza Type B (PCR) (Not Detect) M. pneumoniae (PCR) (Not Detect) Parainfluenza 1 (PCR) (Not Detect) Parainfluenza 2 (PCR) (Not Detect) Parainfluenza 3 (PCR) (Not Detect) Parainfluenza 4 (PCR) (Not Detect) RSV (PCR) (Not Detect) Entero/Rhino (PCR) (Not Detect) 05/29/22 05/29/22 05/29/22 Range/Units 19:30 19:30 21:28 WBC (4.5-11.0) X10^3/uL RBC (4.5-5.9) X10^6/uL Hgb (13.5-17.5) g/dL Hct (41-53) % MCV (80-100) fL MCH (26-34) PG MCHC (30-36) % RDW (11.6-14.8) % Plt Count (150-400) X10^3/uL Neut % (Auto) (50-75) % Lymph % (Auto) (25-40) % [place] % (Auto) (3-14) % Eos % (Auto) (2-4) % Baso % (Auto) (0-2) % Neut # (Auto) (7435-0939) /uL Lymph # (Auto) (2764-6297) /uL [place] # (Auto) (0-900) /uL Eos # (Auto) (0-450) /uL Baso # (Auto) (0-100) /uL Sodium (137-145) mmol/L Potassium (3.4-5.1) mmol/L Chloride (98-107) mmol/L Carbon Dioxide (22-32) mmol/L BUN (9-20) mg/dL Creatinine (0.66-1.25) mg/dL Estimated GFR (>60) mL/min BUN/Creatinine Ratio (6-22) Glucose (80-110) mg/dL Lactate 0.9 (0.7-2.1) mmol/L Calcium (8.4-10.2) mg/dL Total Bilirubin (0.2-1.3) mg/dL AST (17-59) IU/L ALT (<50) IU/L Alkaline Phosphatase (38-126) U/L Total Creatine Kinase 178 H (55-170) U/L CK-MB (CK-2) 2.10 (<2.37) ng/mL CK-MB (CK-2) Rel Index 1.2 L (1.5-5.0) % Troponin I < 0.012 (0.01-0.034) ng/mL NT-Pro-B Natriuret Pep (<125) pg/mL Total Protein (6.3-8.2) g/dL Albumin (3.5-5.0) g/dL Globulin (1.7-4.1) g/dL Albumin/Globulin Ratio (1.0-2.8) Chlamy pneumoniae PCR Not detected (Not Detect) Adenovirus (PCR) Not detected (Not Detect) B. pertussis DNA (PCR) Not detected (Not Detecte) B.parapertussis DNA PCR Not detected (Not Detecte) Coronavirus OC43 (PCR) Not detected (Not Detect) Coronavirus HKU1 (PCR) Not detected (Not Detect) Coronavirus 229E (PCR) Not detected (Not Detect) SARS-CoV-2 (PCR) Not detected (Negative) Coronavirus NL63 (PCR) Not detected (Not Detect) Human Metapneumovir PCR Not detected (Not Detect) Influenza Type A (PCR) Not detected (Not Detect) Influenza Type B (PCR) Not detected (Not Detect) M. pneumoniae (PCR) Not detected (Not Detect) Parainfluenza 1 (PCR) Not detected (Not Detect) Parainfluenza 2 (PCR) Not detected (Not Detect) Parainfluenza 3 (PCR) Not detected (Not Detect) Parainfluenza 4 (PCR) Not detected (Not Detect) RSV (PCR) Not detected (Not Detect) Entero/Rhino (PCR) Not detected (Not Detect) 05/29/22 Range/Units 23:00 WBC (4.5-11.0) X10^3/uL RBC (4.5-5.9) X10^6/uL Hgb (13.5-17.5) g/dL Hct (41-53) % MCV (80-100) fL MCH (26-34) PG MCHC (30-36) % RDW (11.6-14.8) % Plt Count (150-400) X10^3/uL Neut % (Auto) (50-75) % Lymph % (Auto) (25-40) % [place] % (Auto) (3-14) % Eos % (Auto) (2-4) % Baso % (Auto) (0-2) % Neut # (Auto) (8859-6533) /uL Lymph # (Auto) (1151-8289) /uL [place] # (Auto) (0-900) /uL Eos # (Auto) (0-450) /uL Baso # (Auto) (0-100) /uL Sodium (137-145) mmol/L Potassium (3.4-5.1) mmol/L Chloride (98-107) mmol/L Carbon Dioxide (22-32) mmol/L BUN (9-20) mg/dL Creatinine (0.66-1.25) mg/dL Estimated GFR (>60) mL/min BUN/Creatinine Ratio (6-22) Glucose (80-110) mg/dL Lactate (0.7-2.1) mmol/L Calcium (8.4-10.2) mg/dL Total Bilirubin (0.2-1.3) mg/dL AST (17-59) IU/L ALT (<50) IU/L Alkaline Phosphatase (38-126) U/L Total Creatine Kinase 154 (55-170) U/L CK-MB (CK-2) 1.51 (<2.37) ng/mL CK-MB (CK-2) Rel Index 1.0 L (1.5-5.0) % Troponin I < 0.012 (0.01-0.034) ng/mL NT-Pro-B Natriuret Pep (<125) pg/mL Total Protein (6.3-8.2) g/dL Albumin (3.5-5.0) g/dL Globulin (1.7-4.1) g/dL Albumin/Globulin Ratio (1.0-2.8) Chlamy pneumoniae PCR (Not Detect) Adenovirus (PCR) (Not Detect) B. pertussis DNA (PCR) (Not Detecte) B.parapertussis DNA PCR (Not Detecte) Coronavirus OC43 (PCR) (Not Detect) Coronavirus HKU1 (PCR) (Not Detect) Coronavirus 229E (PCR) (Not Detect) SARS-CoV-2 (PCR) (Negative) Coronavirus NL63 (PCR) (Not Detect) Human Metapneumovir PCR (Not Detect) Influenza Type A (PCR) (Not Detect) Influenza Type B (PCR) (Not Detect) M. pneumoniae (PCR) (Not Detect) Parainfluenza 1 (PCR) (Not Detect) Parainfluenza 2 (PCR) (Not Detect) Parainfluenza 3 (PCR) (Not Detect) Parainfluenza 4 (PCR) (Not Detect) RSV (PCR) (Not Detect) Entero/Rhino (PCR) (Not Detect) Imaging Data Chest x-ray: Radiologist's Impression: [address] [address] XRay Report Signed Patient: Rahul Andrew MR#: [id number] : 1955 Acct:[id number] Age/Sex: 67 / M Date of Service: 05/29/22 Loc: ED Accession Number: [id number] ?? Procedure: XR chest 2V Ordering Provider: Matt Condon MD PROCEDURE:? XR CHEST 2V ? INDICATIONS:? shortness of breath ? TECHNIQUE:? 2 views of the chest were acquired.? ? COMPARISON:? [facility], , XR CHEST 2V, 02/05/2022, 11:01. ? FINDINGS:? ? Surgical changes and devices:? None.? ? Lungs and pleura:? Lungs are clear.? No pleural effusions or pneumothorax.? ? Mediastinum:? Mediastinal contours are normal.? Heart size is normal.? ? Bones and chest wall:? No suspicious bony abnormalities.? Soft tissues appear unremarkable.? ? IMPRESSION:? No acute cardiopulmonary pathology.? No significant changes from previous study. ? ? Dictated by: Robi Woodall M.D. on 05/29/2022 at 19:47 ? ? Approved by: Robi Woodall M.D. on 05/29/2022 at 19:48 ? CT scan - chest: Radiologist's Impression: [address] [address] [address] Scan Report Signed Patient: Rahul Andrew MR#: [id number] : 1955 Acct:[id number] Age/Sex: 67 / M Date of Service: 05/29/22 Loc: ED Accession Number: [id number] ?? Procedure: CT angio chest PE protocol Ordering Provider: Matt Condon MD PROCEDURE:? CT ANGIO CHEST PE PROTOCOL ? INDICATIONS:? Dyspnea ? TECHNIQUE:? After the administration of intravenous contrast, 2 mm thick sections acquired from the pulmonary apices to the posterior costophrenic angles.? 3-dimensional maximum intensity projection (MIP) coronal and sagittal reformats were then acquired through the thorax.? For radiation dose reduction, the following was used:? automated exposure control, adjustment of mA and/or kV according to patient size.? ? COMPARISON:? [facility], CT, CT ANGIO CHEST PE PROTOCOL, 04/24/2020, 14:00. ? FINDINGS:? Image quality:? Excellent.? ? Pulmonary arteries:? Pulmonary arteries are normal in size, and demonstrate no intraluminal filling defects to suggest central pulmonary embolism.? ? Lower Neck: No lymphadenopathy by size criteria. Thyroid:? Visualized thyroid demonstrates no discrete nodules. Axillae: No lymphadenopathy by size criteria. Chest Wall:? Unremarkable.? Bones: Visualized osseous structures demonstrate no suspicious lesions. ? Lungs and Airways:? No acute consolidation.? There is mild atelectasis and scarring bilaterally.? No suspicious pulmonary nodules. The trachea and central airways are patent. Pleura: No pneumothorax or pleural effusions.? ? Heart: Heart size is normal.? No pericardial effusion. Thoracic Vessels:? There is mild aneurysmal dilatation of the ascending aorta measuring up to 4.1 cm.? The aortic arch is normal in caliber, measuring up to 2.7 cm at the vertex.? There is mild aneurysmal dilatation of the proximal descending aorta, measuring up to 3.5 cm.? The aorta is normal in caliber at the level of the diaphragmatic hiatus, measuring up to 2.6 cm. Mediastinum and [place]: No lymphadenopathy by size criteria. Esophagus: No wall thickening. No hiatal hernia. Abdomen:? Visualized upper abdominal solid organs appear normal in the early arterial phase of enhancement.? ? IMPRESSION:? ? 1. No evidence of pulmonary embolism. ? 2. No acute airspace consolidation.? ? ? Dictated by: Donavan Aguillon M.D. on 05/29/2022 at 21:16 ? ? Approved by: Donavan Aguillon M.D. on 05/29/2022 at 21:23 ? ECG Data Interpretation: Normal sinus rhythm rate [address] elevation or depression MDM Narrative Medical decision making narrative: Appropriate for discharge home. Exam and imaging and laboratory studies are reassuring. Reviewed with patient and primary care provider that was actually on-call tonight. There is no hypoxia or dyspnea here in the department. Ambulate in hallway and no hypoxia or dyspnea. Precautions reviewed with patient. He is comfortable with discharge home and follow-up with primary care this week Discharge Plan Departure Patient Disposition: Home Clinical Impression: Shortness of Breath Instructions: DI for Shortness of Breath Activity Restrictions/Additional Instructions: Return if worsening questions or concerns. Please see your family doctor this week for re-evaluation. She is expecting you. Continue your home medications. At this time, your exam and laboratory studies and radiographs are reassuring. Prescriptions: No Action omeprazole 20 mg capsule,delayed release(DR/EC) 20 mg PO DAILY hydroxyzine HCl 10 mg tablet 10 mg PO TID PRN (Reason: anxiety) Qty: 15 2RF losartan 100 mg tablet 100 mg PO DAILY Qty: 30 0RF multivitamin [Multiple Vitamins] 1 EACH tablet 1 tab PO QDAY Qty: 0 cholecalciferol (vitamin D3) [Vitamin D3] 2,000 UNIT capsule 1 tab PO Q DAY Qty: 0 acyclovir 400 mg tablet 400 mg PO BID PRN (Reason: herpes) Qty: 30 1RF diltiazem HCl 180 mg capsule,extended release 24hr See Rx Instructions .ROUTE .COMPLEX Qty: 90 3RF Dose Instruction: take 1 capsule by mouth once daily Rx Instructions: take 1 capsule by mouth once daily trazodone 50 mg tablet 50 mg PO BEDTIME Qty: 30 1RF ferrous sulfate 325 mg (65 mg iron) Tablet 325 mg PO DAILY albuterol sulfate [Ventolin HFA] 90 mcg/actuation Hfa Aerosol Inhaler 1 inh INHALATION QID PRN (Reason: Dyspnea) Referrals: Laura Lackey MD [Primary Care Provider] - Visit Report Forms: Patient Portal/API
[2022-05-29 20:10] LABS: Alanine Aminotransferase 38 IU/L (<50); Albumin 4.5 g/dL (3.5-5.0); Albumin Globulin Ratio 1.7 (1.0-2.8); Alkaline Phosphatase 83 U/L (38-126); Aspartate Aminotransferase 40 IU/L (17-59); BUN Creatinine Ratio 16.7 (6-22); Bilirubin Total 0.7 mg/dL (0.2-1.3); Blood Urea Nitrogen 17 mg/dL (9-20); Calcium 9.5 mg/dL (8.4-10.2); Carbon Dioxide 32 mmol/L (22-32); Chloride 103 mmol/L (98-107); Estimated Glomerular Filt Rate > 60 mL/min (>60); Globulin 2.6 g/dL (1.7-4.1); Glucose 112 mg/dL (80-110); HEMOLYSIS 17 (0-50); Sodium 142 mmol/L (137-145); Total Protein 7.1 g/dL (6.3-8.2)
--- NOTE | 2022-05-29 20:15 | DI.CT.S_ITS ---
PROCEDURE: CT ANGIO CHEST PE PROTOCOL INDICATIONS: Dyspnea TECHNIQUE: After the administration of intravenous contrast, 2 mm thick sections acquired from the pulmonary apices to the posterior costophrenic angles. 3-dimensional maximum intensity projection (MIP) coronal and sagittal reformats were then acquired through the thorax. For radiation dose reduction, the following was used: automated exposure control, adjustment of mA and/or kV according to patient size. COMPARISON: [facility], CT, CT ANGIO CHEST PE PROTOCOL, 04/24/2020, 14:00. FINDINGS: Image quality: Excellent. Pulmonary arteries: Pulmonary arteries are normal in size, and demonstrate no intraluminal filling defects to suggest central pulmonary embolism. Lower Neck: No lymphadenopathy by size criteria. Thyroid: Visualized thyroid demonstrates no discrete nodules. Axillae: No lymphadenopathy by size criteria. Chest Wall: Unremarkable. Bones: Visualized osseous structures demonstrate no suspicious lesions. Lungs and Airways: No acute consolidation. There is mild atelectasis and scarring bilaterally. No suspicious pulmonary nodules. The trachea and central airways are patent. Pleura: No pneumothorax or pleural effusions. Heart: Heart size is normal. No pericardial effusion. Thoracic Vessels: There is mild aneurysmal dilatation of the ascending aorta measuring up to 4.1 cm. The aortic arch is normal in caliber, measuring up to 2.7 cm at the vertex. There is mild aneurysmal dilatation of the proximal descending aorta, measuring up to 3.5 cm. The aorta is normal in caliber at the level of the diaphragmatic hiatus, measuring up to 2.6 cm. Mediastinum and Leatha: No lymphadenopathy by size criteria. Esophagus: No wall thickening. No hiatal hernia. Abdomen: Visualized upper abdominal solid organs appear normal in the early arterial phase of enhancement. IMPRESSION: 1. No evidence of pulmonary embolism. 2. No acute airspace consolidation. Dictated by: Donavan Aguillon M.D. on 05/29/2022 at 21:16 Approved by: Donavan Aguillon M.D. on 05/29/2022 at 21:23
[2022-05-29 20:20] LABS: NT-proBNP (BNP-Adult 18+) 92 pg/mL (<125)
[2022-05-29 20:48] LABS: Creatine Kinase 178 U/L (55-170)
[2022-05-29 21:00] LABS: Troponin I < 0.012 ng/mL (0.01-0.034)
[2022-05-29 21:22] LABS: CKMB % Relative Index 1.2 % (1.5-5.0)
[2022-05-29 23:23] LABS: Creatine Kinase 154 U/L (55-170)
[2022-05-29 23:36] LABS: Creatine Kinase MB 1.51 ng/mL (<2.37); Troponin I < 0.012 ng/mL (0.01-0.034)
[2022-05-29 23:55] LABS: Adenovirus Not Detected (Not Detect)
[2022-05-29 23:56] LABS: B. parapertussis Not Detected (Not Detecte); Bordetella pertussis Not Detected (Not Detecte); Chlamydophila pneumoniae Not Detected (Not Detect); Coronavirus 229E Not Detected (Not Detect); Coronavirus HKU1 Not Detected (Not Detect); Coronavirus NL 63 Not Detected (Not Detect); Coronavirus OC43 Not Detected (Not Detect); Human Metapneumovirus Not Detected (Not Detect); Human Rhinovirus/Enterovirus Not Detected (Not Detect); Influenza A Not Detected (Not Detect); Influenza B Not Detected (Not Detect); Mycoplasma pneumoniae Not Detected (Not Detect); Parainfluenza Virus 1 Not Detected (Not Detect); Parainfluenza Virus 2 Not Detected (Not Detect); Parainfluenza Virus 3 Not Detected (Not Detect); Parainfluenza Virus 4 Not Detected (Not Detect); Respiratory Syncytial Virus Not Detected (Not Detect); SARS- CoV-2 Not Detected (Not Detecte)
== END 2022-05-29 23:46 | disposition home or self-care (01) ==
PROVIDERS: Emergency Provider Emergency Medicine; Family Provider Family Medicine; PCP Family Medicine
DX: R06.02 Shortness of breath (principal); Z20.822 Contact with and (suspected) exposure to COVID-19; C85.90 Non-Hodgkin lymphoma, unspecified, unspecified site
CPT/HCPCS: 36415; 71046; 71275; 80053; 82550; 82553; 83605; 83880; 84484; 85025; 87633; 87635; 93005; 93010; 99284; C9803; Q9967

== ENCOUNTER → 2022-07-02 16:23 | Outpatient (CLI) | payer OTHER, MEDICARE, SELFPAY ==
[2022-07-02 17:21] LABS: Cholesterol 133 mg/dL (140-199); HDL Cholesterol 47 mg/dL (40-60); LDL Cholesterol Calculated 51 mg/dL (<100); Triglycerides 173 mg/dL (35-150)
== END ==
PROVIDERS: Family Provider Family Medicine; PCP Family Medicine; Referring Provider Internal Medicine Cardiovascular Disease; Visit Provider Internal Medicine Cardiovascular Disease
DX: I25.10 Atherosclerotic heart disease of native coronary artery without angina pectoris (principal); I25.84 Coronary atherosclerosis due to calcified coronary lesion; I10 Essential (primary) hypertension
CPT/HCPCS: 36415; 80061

== ENCOUNTER → 2022-10-26 13:42 | Outpatient (CLI) | payer MEDICARE, OTHER, SELFPAY ==
--- NOTE | 2022-10-26 13:46 | DI.RAD.S_ITS ---
PROCEDURE: XR CHEST 2V INDICATIONS: chest tightness, pls compare to previous exams TECHNIQUE: 2 views of the chest were acquired. COMPARISON: CT, CT ANGIO CHEST PE PROTOCOL, 04/24/2020, 14:00. [facility], CR, XR CHEST 2V, 05/04/2020, 12:16. [facility], CR, XR CHEST 2V, 05/29/2022, 19:26. [facility], CR, XR CHEST 2V, 02/05/2022, 11:01. FINDINGS: Surgical changes and devices: None. Lungs and pleura: Lungs are abnormal with a mild chronic interstitial prominence. No pleural effusions or pneumothorax. Mediastinum: Mediastinal contours are normal. Heart size is normal. Bones and chest wall: No suspicious bony abnormalities. Soft tissues appear unremarkable. IMPRESSION: Source of sensation of chest tightness is not found. Longstanding chronic interstitial prominence which may reflect a prior smoking history. No pneumonia or neoplasm is found. Dictated by: Anthony Palma M.D. on 10/26/2022 at 14:07 Approved by: Anthony Palma M.D. on 10/26/2022 at 14:08
== END ==
PROVIDERS: Family Provider Family Medicine; PCP Family Medicine; Referring Provider Family Medicine; Visit Provider Family Medicine
DX: R07.89 Other chest pain; R05.9 Cough, unspecified
CPT/HCPCS: 71046

== ENCOUNTER 2022-10-30 14:08 | Emergency (ER) | payer MEDICARE, OTHER, SELFPAY ==
[2022-10-30 14:11] VITALS: BP 195/100; PULSE 88; RESP 17; TEMP 36.8; O2SAT 98; BMI 27.7
--- NOTE | 2022-10-30 14:18 | DI.RAD.S_ITS ---
PROCEDURE: XR CHEST 1V INDICATIONS: chest pain TECHNIQUE: One view of the chest was acquired. COMPARISON: [facility], CR, XR CHEST 2V, 10/26/2022, 13:56. FINDINGS: Surgical changes and devices: None. Lungs and pleura: Lungs are clear. No pleural effusions or pneumothorax. Mediastinum: Mediastinal contours appear normal. Heart size is mildly prominent. Bones and chest wall: No suspicious bony lesions. Overlying soft tissues appear unremarkable. IMPRESSION: No acute pulmonary process. Dictated by: Anne Sen M.D. on 10/30/2022 at 15:37 Approved by: Anne Sen M.D. on 10/30/2022 at 15:38
[2022-10-30 14:52] LABS: Add Manual Diff / Slide Review NO; Basophils Absolute Auto 100 /uL (0-100); Basophils Percent Auto 0.8 % (0-2); Eosinophils Absolute Auto 100 /uL (0-450); Eosinophils Percent Auto 1.7 % (2-4); Hematocrit 42.7 % (41-53); Hemoglobin 14.2 g/dL (13.5-17.5); Lymphocytes Absolute Auto 1800 /uL (1100-4500); Lymphocytes Percent Auto 23.6 % (25-40); Mean Corpuscular HGB Conc 33.3 % (30-36); Mean Corpuscular Hemoglobin 30.8 PG (26-34); Mean Corpuscular Volume 92.2 fL (80-100); Monocytes Absolute Auto 600 /uL (0-900); Monocytes Percent Auto 7.3 % (3-14); Neutrophils Absolute Auto 5100 /uL (1500-7000); Neutrophils Percent Auto 66.6 % (50-75); Platelet Count 207 X10^3/uL (150-400); Red Blood Cell Count 4.63 X10^6/uL (4.5-5.9); Red Cell Distribution Width 13.6 % (11.6-14.8); White Blood Cell Count 7.7 X10^3/uL (4.5-11.0)
--- NOTE | 2022-10-30 14:54 | ED_ITS ---
HPI - Chest Pain General Chief Complaint: Chest Pain Stated Complaint: chest pains, lung problems, xray on Saturday Time Seen by Provider: 10/30/22 14:42 Source: patient Mode of arrival: Ambulatory History of Present Illness HPI narrative: 67-year-old male nonsmoker with a history of non-Hodgkin's lymphoma, iron deficiency anemia, Swenson's esophagus and anemia presents with a chief complaint of a burning right-sided chest pain that started early today. He denies obvious provocation or palliation of these symptoms. He denies any radia tion of these symptoms. He is not nauseated or vomiting and denies unexplained diaphoresis. He does state that on the whole he is felt unwell for least the past month or so and feels generally fatigued without necessarily any specific complaints otherwise. He is had no runny nose, sore throat or cough. He denies any fever or chills. He denies abdominal pain, vomiting or diarrhea and has no urinary complaint. He denies change in medications or diet. He is had no recent travel or injury. Related Data Home Medications Medication Instructions Recorded Confirmed cholecalciferol (vitamin D3) 50 1 tab PO Q DAY ##0 09/26/17 10/13/22 mcg (2,000 unit) capsule (Vitamin D3) multivitamin (Multiple Vitamins 1 tab PO QDAY ##0 09/26/17 10/13/22 tablet) albuterol sulfate 90 mcg/actuation 1 inh inhalation QID PRN Dyspnea 05/03/20 10/13/22 aerosol inhaler (Ventolin HFA) ferrous sulfate 325 mg (65 mg 325 mg PO DAILY 05/03/20 10/13/22 iron) tablet omeprazole 20 mg capsule,delayed 20 mg PO DAILY 09/06/20 10/13/22 release Previous Rx's Medication Instructions Recorded acyclovir 400 mg tablet 400 mg PO BID PRN herpes #30 tabs 08/02/21 hydroxyzine HCl 10 mg tablet 10 mg PO TID PRN anxiety #15 tabs 01/31/22 losartan 100 mg tablet 100 mg PO DAILY #30 tabs 02/05/22 diltiazem HCl 180 mg See Rx Instructions .Route 03/16/22 capsule,extended release 24 hr .COMPLEX #90 caps trazodone 50 mg tablet 50 mg PO BEDTIME #30 tabs 07/08/22 Allergies Allergy/AdvReac Type Severity Reaction Status Date / Time No Known Drug Allergies Allergy Verified 10/30/22 14:16 Review of Systems Review of Systems Narrative: GENERAL: See HPI HEENT: Denies sinus pain, ear pain, sore throat, difficulty swallowing, dizziness. RESPIRATORY: See HPI CARDIOVASCULAR: See HPI GASTROINTESTINAL: Denies nausea, vomiting, abdominal pain, diarrhea, consti pation, melena. : Denies dysuria, frequency, incontinence, hematuria, urinary retention. MUSCULOSKELETAL: denies weakness, joint pain, or bony pain SKIN: Denies rash, skin lesions, or other NEUROLOGIC: Denies weakness, headache, numbness, change in speech, confusion, seizures, incoordination. PSYCHIATRIC: No concerning psychosocial issues. 12 point review of systems is negative except for those stated above Patient History Medical History Anxiety (2015) Barretts esophagus Chronic cough Collapsed lung (1974) Colon polyps (~2008) Depression (2015) Fracture of right upper extremity (~1964) Hayfever Herpes (~1979) Hypertension (2005) Iron deficiency anemia Kidney stones (1991) Measles Mumps NHL (non-Hodgkin's lymphoma) (1999) Skin problem (2004) Sleep apnea WPW (Qdqhw-Blnensqta-Cpaqw syndrome) (2009) Surgical History Anesthesia History of cardiac radiofrequency ablation (RFA) (2009) History of colonoscopy (~2008) History of surgery on arm (~1965) Status post appendectomy (~1960) Family History Child Cancer Brain cancer Father Cancer Cancer of jaw bone Grandfather Cancer Brain cancer Grandmother Cancer Grandmother Heart disease Heart attack Grandfather No problems noted. Mother Stroke Social History marital status: unknown household members: none occupational status: employed Smoking Status: Never smoker alcohol intake: current substance use type: does not use Smoking Status: Never smoker alcohol intake frequency: other Substance Use Type: does not use Exam Narrative Exam Narrative: GENERAL: [67] year old patient appears stated age. Well-developed patient, in mild distress. HEAD: Atraumatic. Normocephalic. EYES: Pupils equal round and reactive. Extraocular motions intact. No scleral icterus. No injection or drainage. ENT: Nose without bleeding, purulent drainage. Throat without erythema, tonsillar hypertrophy or exudate. Airway patent. NECK: Trachea midline. Non tender CARDIOVASCULAR: Regular rate and rhythm without murmurs, gallops, or rubs. RESPIRATORY: Clear to auscultation. Breath sounds equal bilaterally. No wheezes, rales, or rhonchi. GASTROINTESTINAL: Abdomen soft, non-tender, nondistended. EXTREMITIES: No edema or joint tenderness. BACK: Nontender without deformity or crepitance. No flank tenderness. NEURO: AOx3. SKIN: No rash or erythema of visible areas Initial Vital Signs Initial Vital Signs: Vital Signs Temperature 98.2 F 10/30/22 14:11 Pulse Rate 88 10/30/22 14:11 Respiratory Rate 17 10/30/22 14:11 Blood Pressure 195/100 H 10/30/22 14:11 Pulse Oximetry 98 10/30/22 14:11 Oxygen Delivery Method 10/30/22 14:11 Scores HEART Score Heart Score history: Slightly Suspicious Heart Score EKG: Normal Heart Score Age: > or = 65 years old Heart Score risk factors: 1-2 risk factors Heart Score troponin: < or = to normal limit Heart Score Total: 3 PERC Score Age greater than or equal to 50 years: Yes Heart rate greater than or equal to 100 bpm: No Room Air O2 Sat less than 95%: No Unilateral leg swelling: No Recent trauma or surgery: No Hemoptysis: No Prior PE or DVT: No Hormone Use: No Total PERC Score: 1 Wells' Criteria for PE Clinical signs and symptoms of DVT: No PE is #1 Dx or equally likely: No Heart rate > 100: No Immobilization at least 3 days or surg in previous 4 weeks: No History of PE or DVT: No Hemoptysis: No Malignancy w/Treatment within 6 months or palliative: No Wells' PE Score total: 0 Course Orders Ordered: Discontinued Medications Aspirin (Aspirin 81 Mg Chew Tab) 324 mg PO NOW ONE Stop: 10/30/22 14:19 Last Admin: 10/30/22 15:16 Dose: 324 mg Documented By: SHARLA Vital Signs Vital signs: Vital Signs - 8 hr 10/30/22 14:11 Temperature 98.2 F Pulse Rate 88 Respiratory Rate 17 Blood Pressure 195/100 H Pulse Oximetry 98 Oxygen Delivery Method Room Air MDM - Chest Pain Lab Data Result diagrams: 10/30/22 14:20 10/30/22 14:20 Labs: Lab Results 10/30/22 10/30/22 10/30/22 Range/Units 14:20 14:20 14:20 WBC 7.7 (4.5-11.0) X10^3/uL RBC 4.63 (4.5-5.9) X10^6/uL Hgb 14.2 (13.5-17.5) g/dL Hct 42.7 (41-53) % MCV 92.2 (80-100) fL MCH 30.8 (26-34) PG MCHC 33.3 (30-36) % RDW 13.6 (11.6-14.8) % Plt Count 207 (150-400) X10^3/uL Neut % (Auto) 66.6 (50-75) % Lymph % (Auto) 23.6 L (25-40) % Mcleod % (Auto) 7.3 (3-14) % Eos % (Auto) 1.7 L (2-4) % Baso % (Auto) 0.8 (0-2) % Neut # (Auto) 5100 (6056-2470) /uL Lymph # (Auto) 1800 (7831-3112) /uL Mcleod # (Auto) 600 (0-900) /uL Eos # (Auto) 100 (0-450) /uL Baso # (Auto) 100 (0-100) /uL PT 11.2 (10.1-12.7) SECONDS INR 1.0 (0.9-1.3) APTT 31 (26-36) SECONDS D-Dimer (<500) ng/ml Sodium 141 (137-145) mmol/L Potassium 3.9 (3.4-5.1) mmol/L Chloride 103 (98-107) mmol/L Carbon Dioxide 29 (22-32) mmol/L BUN 17 (9-20) mg/dL Creatinine 0.89 (0.66-1.25) mg/dL Estimated GFR > 60 (>60) mL/min BUN/Creatinine Ratio 19.1 (6-22) Glucose 88 (80-110) mg/dL Calcium 9.2 (8.4-10.2) mg/dL Magnesium 2.1 (1.6-2.3) mg/dL Total Bilirubin 0.7 (0.2-1.3) mg/dL AST 32 (17-59) IU/L ALT 30 (<50) IU/L Alkaline Phosphatase 84 (38-126) U/L Total Creatine Kinase 103 (55-170) U/L CK-MB (CK-2) 1.79 (<2.37) ng/mL CK-MB (CK-2) Rel Index 1.7 (1.5-5.0) % Troponin I < 0.012 (0.01-0.034) ng/mL NT-Pro-B Natriuret Pep (<125) pg/mL Total Protein 7.2 (6.3-8.2) g/dL Lipase 45 (23-300) U/L SARS-CoV-2 (PCR) (Negative) Influenza A (RT-PCR) (NEGATIVE) Influenza B (RT-PCR) (NEGATIVE) RSV (PCR) (Negative) 10/30/22 10/30/22 10/30/22 Range/Units 14:20 14:20 14:56 WBC (4.5-11.0) X10^3/uL RBC (4.5-5.9) X10^6/uL Hgb (13.5-17.5) g/dL Hct (41-53) % MCV (80-100) fL MCH (26-34) PG MCHC (30-36) % RDW (11.6-14.8) % Plt Count (150-400) X10^3/uL Neut % (Auto) (50-75) % Lymph % (Auto) (25-40) % Mcleod % (Auto) (3-14) % Eos % (Auto) (2-4) % Baso % (Auto) (0-2) % Neut # (Auto) (7592-4934) /uL Lymph # (Auto) (9361-5367) /uL Mcleod # (Auto) (0-900) /uL Eos # (Auto) (0-450) /uL Baso # (Auto) (0-100) /uL PT (10.1-12.7) SECONDS INR (0.9-1.3) APTT (26-36) SECONDS D-Dimer < 215 (<500) ng/ml Sodium (137-145) mmol/L Potassium (3.4-5.1) mmol/L Chloride (98-107) mmol/L Carbon Dioxide (22-32) mmol/L BUN (9-20) mg/dL Creatinine (0.66-1.25) mg/dL Estimated GFR (>60) mL/min BUN/Creatinine Ratio (6-22) Glucose (80-110) mg/dL Calcium (8.4-10.2) mg/dL Magnesium (1.6-2.3) mg/dL Total Bilirubin (0.2-1.3) mg/dL AST (17-59) IU/L ALT (<50) IU/L Alkaline Phosphatase (38-126) U/L Total Creatine Kinase (55-170) U/L CK-MB (CK-2) (<2.37) ng/mL CK-MB (CK-2) Rel Index (1.5-5.0) % Troponin I (0.01-0.034) ng/mL NT-Pro-B Natriuret Pep 97 (<125) pg/mL Total Protein (6.3-8.2) g/dL Lipase (23-300) U/L SARS-CoV-2 (PCR) Negative (Negative) Influenza A (RT-PCR) Flu a negative (NEGATIVE) Influenza B (RT-PCR) Flu b negative (NEGATIVE) RSV (PCR) Negative (Negative) 10/30/22 Range/Units 17:45 WBC (4.5-11.0) X10^3/uL RBC (4.5-5.9) X10^6/uL Hgb (13.5-17.5) g/dL Hct (41-53) % MCV (80-100) fL MCH (26-34) PG MCHC (30-36) % RDW (11.6-14.8) % Plt Count (150-400) X10^3/uL Neut % (Auto) (50-75) % Lymph % (Auto) (25-40) % Mcleod % (Auto) (3-14) % Eos % (Auto) (2-4) % Baso % (Auto) (0-2) % Neut # (Auto) (4995-8725) /uL Lymph # (Auto) (2583-1570) /uL Mcleod # (Auto) (0-900) /uL Eos # (Auto) (0-450) /uL Baso # (Auto) (0-100) /uL PT (10.1-12.7) SECONDS INR (0.9-1.3) APTT (26-36) SECONDS D-Dimer (<500) ng/ml Sodium (137-145) mmol/L Potassium (3.4-5.1) mmol/L Chloride (98-107) mmol/L Carbon Dioxide (22-32) mmol/L BUN (9-20) mg/dL Creatinine (0.66-1.25) mg/dL Estimated GFR (>60) mL/min BUN/Creatinine Ratio (6-22) Glucose (80-110) mg/dL Calcium (8.4-10.2) mg/dL Magnesium (1.6-2.3) mg/dL Total Bilirubin (0.2-1.3) mg/dL AST (17-59) IU/L ALT (<50) IU/L Alkaline Phosphatase (38-126) U/L Total Creatine Kinase 89 (55-170) U/L CK-MB (CK-2) TNP (<2.37) ng/mL CK-MB (CK-2) Rel Index TNP (1.5-5.0) % Troponin I < 0.012 (0.01-0.034) ng/mL NT-Pro-B Natriuret Pep (<125) pg/mL Total Protein (6.3-8.2) g/dL Lipase (23-300) U/L SARS-CoV-2 (PCR) (Negative) Influenza A (RT-PCR) (NEGATIVE) Influenza B (RT-PCR) (NEGATIVE) RSV (PCR) (Negative) MDM Narrative Medical decision making narrative: CC: 67-year-old male with right-sided chest burning and discomfort with at least a few weeks of generalized fatigue Complicating co-morbidities: Age, hypertension, anemia, history of non-Hodgkin' s lymphoma Data collected from: Patient Medical records reviewed: Multiple prior ED and family practice notes Differential considered, but not limited to: Pneumonia, flu, COVID, RSV, cardiac ischemia, pulmonary embolism versus other Exam documented above, pertinent findings include: Heart rate regular, lungs clear and free of signs of respiratory distress, no wheezes, rales or rhonchi. Abdomen soft and nontender. Patient is well-hydrated with moist mucous membranes and good skin turgor Lab Test results independently reviewed as above. Pertinent findings: No leukocytosis or left shift, no signs of anemia, D-dimer negative, troponin x2 negative Independently reviewed EKG as above Imaging studies independently reviewed: Chest x-ray without acute process, chest abdomen and pelvis CT ordered given history of cancer patient's concern of generalized fatigue, however thankfully no abnormal findings Scores Used: Heart, wells, PERC Treatments: Aspirin Re-evaluations: Patient resting comfortably and essentially asymptomatic for most of visit Discussion: 67-year-old male with burning right-sided chest pain and generalized fatigue. History and physical exam as well as EKG and labs are very reassuring. No evidence of pneumonia on imaging. Lungs are clear. EKGs nonis chemic, heart score is low, no exertional symptoms though he does have report of exercise intolerance. Troponin x2 is negative. Though he may require echocardiogram and/or stress test as an outpatient there is no indication of an acute cardiac process. PE considered but thought extremely unlikely given negative D-dimer, no indication to further pursue with CT angiogram. Respiratory swabs negative for flu, COVID, RSV. Disposition: see below, along with detailed discharge instructions that have been reviewed with patient as well as indications for ED re-evaluation and additional outpatient follow up Discharge Plan Departure Patient Disposition: Home Clinical Impression: Atypical chest pain Instructions: DI for Atypical Chest Pain Activity Restrictions/Additional Instructions: *You have been diagnosed with [atypical chest pain. As we discussed you had a very reassuring physical exam, labs and imaging. There is no evidence of heart attack, blood clot, pneumonia or other abnormal finding that would require immediate or specific intervention] *What to do: *Please continue to take your regular medications as directed. *Please follow up with your primary care provider in 2-3 days, call for an appointment. Let them know you were seen in the Emergency Department and that we ask that you be seen in follow up. We will electronically transmit a record of today's note if your PCP is in our system *Return to Emergency Department if you should have any new, worsening or concerning symptoms, such as [fever greater than 101 F, shaking chills, worsening pain, persistent vomiting or other bothersome symptoms] Prescriptions: No Action omeprazole 20 mg capsule,delayed release(/EC) 20 mg PO DAILY hydroxyzine HCl 10 mg tablet 10 mg PO TID PRN (Reason: anxiety) Qty: 15 2RF losartan 100 mg tablet 100 mg PO DAILY Qty: 30 0RF multivitamin [Multiple Vitamins] 1 EACH tablet 1 tab PO QDAY Qty: 0 cholecalciferol (vitamin D3) [Vitamin D3] 2,000 UNIT capsule 1 tab PO Q DAY Qty: 0 acyclovir 400 mg tablet 400 mg PO BID PRN (Reason: herpes) Qty: 30 1RF diltiazem HCl 180 mg capsule,extended release 24hr See Rx Instructions .ROUTE .COMPLEX Qty: 90 3RF Dose Instruction: take 1 capsule by mouth once daily Rx Instructions: take 1 capsule by mouth once daily trazodone 50 mg tablet 50 mg PO BEDTIME Qty: 30 1RF ferrous sulfate 325 mg (65 mg iron) Tablet 325 mg PO DAILY albuterol sulfate [Ventolin HFA] 90 mcg/actuation Hfa Aerosol Inhaler 1 inh INHALATION QID PRN (Reason: Dyspnea) Referrals: Laura Lackey MD [Primary Care Provider] - Stand Alone Forms: Patient Portal/API
[2022-10-30 15:00] VITALS: BP 176/90; PULSE 77; RESP 18; O2SAT 99
[2022-10-30 15:02] LABS: Prothrombin Time 11.2 SECONDS (10.1-12.7)
[2022-10-30 15:05] LABS: PTT Partial Thromboplastin Tim 31 SECONDS (26-36)
[2022-10-30 15:10] LABS: Alanine Aminotransferase 30 IU/L (<50); Alkaline Phosphatase 84 U/L (38-126); Aspartate Aminotransferase 32 IU/L (17-59); BUN Creatinine Ratio 19.1 (6-22); Bilirubin Total 0.7 mg/dL (0.2-1.3); Blood Urea Nitrogen 17 mg/dL (9-20); Calcium 9.2 mg/dL (8.4-10.2); Carbon Dioxide 29 mmol/L (22-32); Chloride 103 mmol/L (98-107); Creatine Kinase 103 U/L (55-170); Estimated Glomerular Filt Rate > 60 mL/min (>60); Glucose 88 mg/dL (80-110); Lipase 45 U/L (23-300); Magnesium 2.1 mg/dL (1.6-2.3); Potassium 3.9 mmol/L (3.4-5.1); Sodium 141 mmol/L (137-145); Total Protein 7.2 g/dL (6.3-8.2)
[2022-10-30 15:12] LABS: D Dimer < 215 ng/ml (<500)
[2022-10-30] MEDS: ASPIRIN 81 MG CHEW TAB 324 MG PO (15:16)
[2022-10-30 15:19] LABS: NT-proBNP (BNP-Adult 18+) 97 pg/mL (<125)
[2022-10-30 15:21] LABS: Troponin I < 0.012 ng/mL (0.01-0.034)
[2022-10-30 15:25] LABS: CKMB % Relative Index 1.7 % (1.5-5.0); Creatine Kinase MB 1.79 ng/mL (<2.37)
[2022-10-30 15:33] LABS: COVID-19 CEPHEID 4-PLEX PCR Negative (Negative); Influenza A - CEPHEID Flu A NEGATIVE (NEGATIVE); Influenza B - CEPHEID Flu B NEGATIVE (NEGATIVE); Respiratory Syncytial Virus Negative (Negative)
[2022-10-30 16:00] VITALS: BP 164/92; PULSE 80; RESP 17; O2SAT 98
--- NOTE | 2022-10-30 16:24 | DI.CT.S_ITS ---
PROCEDURE: CT CHEST ABD PEL W CON INDICATIONS: SOB, chest pain, abdominal, hx lymphoma TECHNIQUE: After the administration of oral and intravenous contrast, axial sections acquired from the supraclavicular neck to the pubic symphysis. Coronal and sagittal reformats were performed. For radiation dose reduction, the following was used: automated exposure control, adjustment of mA and/or kV according to patient size. COMPARISON: [facility], CT, CT ANGIO CHEST PE PROTOCOL, 05/29/2022, 20:36. FINDINGS: Image quality: Excellent. CHEST: Lower Neck: No enlarged lymph nodes. Thyroid: Within normal limits. Axillae: No enlarged lymph nodes. Chest Wall: Unremarkable. Lungs and Airways: No consolidation or suspicious nodules. Pleura: No pneumothorax or pleural effusions. Heart: Heart size is normal. No pericardial effusion. Thoracic Vessels: The aorta and pulmonary arteries demonstrate normal size. Mediastinum and Leatha: No enlarged lymph nodes. Esophagus: No wall thickening. No hiatal hernia. ABDOMEN: Liver: Hepatic steatosis is present. Gallbladder: Unremarkable. Biliary ducts: Unremarkable. Pancreas: Unremarkable. Spleen: Unremarkable. Adrenal Glands: Unremarkable. Kidneys and Ureters: Unremarkable. Retroaortic left renal vein. Stomach and Bowel: Stomach, small bowel loops, and colon are unremarkable. Peritoneum: No abnormal intraperitoneal fluid. No free air. Ventral Wall: No hernia. Abdominal Nodes: No retroperitoneal or mesenteric adenopathy by size criteria. Vessels: Aorta and inferior vena cava are normal in size. PELVIS: Pelvic Organs: Unremarkable. Bladder: Unremarkable. Pelvic Nodes: No enlarged lymph nodes. Miscellaneous: Bilateral fat containing inguinal hernias. Bones: Unremarkable. IMPRESSION: 1. No acute intra-abdominal or pelvic process. Dictated by: Anne Sen M.D. on 10/30/2022 at 17:11 Approved by: Anne Sen M.D. on 10/30/2022 at 17:13
[2022-10-30 17:17] VITALS: BP 156/85; PULSE 77; RESP 17; O2SAT 99
[2022-10-30 18:05] LABS: Creatine Kinase 89 U/L (55-170)
[2022-10-30 18:18] LABS: Troponin I < 0.012 ng/mL (0.01-0.034)
[2022-10-30 19:05] VITALS: BP 173/96; PULSE 79; RESP 16; O2SAT 98
[2022-11-02 16:11] LABS: Albumin 4.6 g/dL (3.5-5.0); Albumin Globulin Ratio 1.8 (1.0-2.8); Globulin 2.6 g/dL (1.7-4.1); HEMOLYSIS 18 (0-50)
== END 2022-10-30 19:06 | disposition home or self-care (01) ==
PROVIDERS: Emergency Provider Emergency Medicine; Family Provider Family Medicine; PCP Family Medicine
DX: R07.89 Other chest pain (principal); R53.81 Other malaise; C85.90 Non-Hodgkin lymphoma, unspecified, unspecified site; Z79.899 Other long term (current) drug therapy; Z20.822 Contact with and (suspected) exposure to COVID-19
CPT/HCPCS: 0241U; 36415; 71045; 71260; 74177; 80053; 82550; 82553; 83690; 83735; 83880; 84484; 85025; 85379; 85610; 85730; 93005; 99284

== ENCOUNTER → 2022-11-02 08:17 | Outpatient (CLI) | payer MEDICARE, OTHER, SELFPAY ==
[2022-11-02 08:58] LABS: Add Manual Diff / Slide Review NO; Basophils Absolute Auto 0 /uL (0-100); Basophils Percent Auto 0.8 % (0-2); Eosinophils Absolute Auto 200 /uL (0-450); Eosinophils Percent Auto 3.3 % (2-4); Hematocrit 43.5 % (41-53); Hemoglobin 14.3 g/dL (13.5-17.5); Lymphocytes Absolute Auto 1200 /uL (1100-4500); Lymphocytes Percent Auto 20.1 % (25-40); Mean Corpuscular HGB Conc 32.9 % (30-36); Mean Corpuscular Hemoglobin 30.6 PG (26-34); Mean Corpuscular Volume 92.8 fL (80-100); Monocytes Absolute Auto 300 /uL (0-900); Monocytes Percent Auto 4.3 % (3-14); Neutrophils Absolute Auto 4300 /uL (1500-7000); Neutrophils Percent Auto 71.5 % (50-75); Platelet Count 192 X10^3/uL (150-400); Red Blood Cell Count 4.68 X10^6/uL (4.5-5.9); Red Cell Distribution Width 13.8 % (11.6-14.8)
[2022-11-02 09:12] LABS: Alanine Aminotransferase 30 IU/L (<50); Alkaline Phosphatase 79 U/L (38-126); Aspartate Aminotransferase 29 IU/L (17-59); BUN Creatinine Ratio 20.2 (6-22); Bilirubin Total 0.8 mg/dL (0.2-1.3); Blood Urea Nitrogen 18 mg/dL (9-20); Calcium 8.8 mg/dL (8.4-10.2); Carbon Dioxide 30 mmol/L (22-32); Chloride 102 mmol/L (98-107); Estimated Glomerular Filt Rate > 60 mL/min (>60); Glucose 139 mg/dL (80-110); HEMOLYSIS < 15 (0-50); Potassium 3.7 mmol/L (3.4-5.1); Sodium 142 mmol/L (137-145)
[2022-11-02 16:35] LABS: Albumin 4.4 g/dL (3.5-5.0); Albumin Globulin Ratio 1.7 (1.0-2.8); Globulin 2.6 g/dL (1.7-4.1)
[2022-11-05 14:22] LABS: Free Kappa Lt Chains, Serum 15.8 mg/L (3.3-19.4); Free Lambda Lt Chains,Serum 7.4 mg/L (5.7-26.3)
[2022-11-06 15:07] LABS: Immunoglobulin A, Serum 23 mg/dL (61-437); Immunoglobulin G,Serum 583 mg/dL (603-1613); Immunoglobulin M, Serum 100 mg/dL (20-172)
[2022-11-08 13:11] LABS: IGA 23; IGG 583; IGM 100; Protein, Total 6.2
[2022-11-08 13:12] LABS: Albumin 3.9; Alpha-1-Globulin 0.2; Alpha-2-Globulin 0.7; Gamma Globulin 0.6; Globulin Total 2.3
[2022-11-08 13:13] LABS: PDF SEE SCANS
== END ==
PROVIDERS: Family Provider Family Medicine; PCP Family Medicine; Referring Provider Internal Medicine Hematology & Oncology; Visit Provider Internal Medicine Hematology & Oncology
DX: C88.0 Waldenstrom macroglobulinemia (principal)
CPT/HCPCS: 36415; 80053; 82784; 83883; 84155; 84165; 85025; 86334

== ENCOUNTER → 2022-11-09 08:02 | Outpatient (CLI) | payer MEDICARE, OTHER, SELFPAY ==
[2022-11-09 09:45] LABS: Hemoglobin A1C% w Est Avg Glu 5.6 % (4.0-6.0)
[2022-11-09 10:36] LABS: Vitamin D 25 Hydroxy (D3) 53.2 ng/mL (30.0-100.0)
[2022-11-09 10:48] LABS: Prostate Specific Antigen Scrn 1.62 ng/mL (0.1-4.0)
[2022-11-09 10:49] LABS: TSH w/ Reflex to FT4 3.59 uIU/mL (0.47-4.68)
[2022-11-09 11:07] LABS: Vitamin B12 570 pg/mL (239-931)
== END ==
PROVIDERS: Family Provider Family Medicine; PCP Family Medicine; Referring Provider Physician Assistant; Visit Provider Physician Assistant
DX: R73.01 Impaired fasting glucose (principal); Z12.5 Encounter for screening for malignant neoplasm of prostate; R53.83 Other fatigue; E53.8 Deficiency of other specified B group vitamins; E55.9 Vitamin D deficiency, unspecified
CPT/HCPCS: 36415; 82306; 82607; 83036; 84443; G0103

== ENCOUNTER → 2023-04-15 14:53 | Outpatient (CLI) | payer MEDICARE, OTHER, SELFPAY ==
--- NOTE | 2023-04-15 | DI.ECHO.S_ITS ---
[facility] +---------+ [facility] +---------+ : : [address] : : : : [place] : : : : [id number] : : : : Phone: [phone]---------+ Echocardiogram Report + + :Name: GENOVEVA ANDREW Study Date: 04/15/2023 Height: 73 in : :[facility] ReadingLocation: Weight: 218 lb : : Gender: Male BSA: 2.2 m2 : :: 1955 Age: 67 yrs BP: 160/83 mmHg: :Reason For Study: Other Specified Disorders of Arteries and : :Arterioles : :Ordering Physician: Yana, : :Radha Performed By: Alejandra Abreu : :Referring: RADHA MILLAN : + + Interpretation Summary 1) Normal left ventricular thickness, size, wall motion, and systolic function (EF 55-60%). 2) Normal right ventricular size and function. 3) There is mild aortic regurgitation. 4) The ascending aorta is mildly enlarged at 4.0cm. 5) Hypertension present during the study (BP 160/83mmHg). 6) Compared to the Echo done 06/20/2021, no significant change. Procedure: A two-dimensional transthoracic echocardiogram with color flow and Doppler was performed. The study quality was technically adequate. Comparison is made with the echocardiogram of 06/20/2021. The patient was in normal sinus rhythm during the exam. Left Ventricle: The left ventricle is normal in size and wall thickness. The ejection fraction is estimated to be 55-60%. Left ventricular systolic function appears normal without focal wall motion abnormalities. Diastolic parameters suggest a relaxation abnormality of the left ventricle, consistent with probable normal filling pressures. Right Ventricle: The right ventricle is normal size. The right ventricular systolic function is normal. Atria: The left atrial size is normal. Right atrial size is normal. There is no Doppler evidence for an interatrial shunt. Mitral Valve: The mitral valve leaflets appear normal. There is no evidence of stenosis, fluttering, or prolapse. There is no mitral valve stenosis. There is trace mitral regurgitation. Aortic Valve: The aortic valve is trileaflet. The aortic valve opens well. There is no aortic valve stenosis. There is mild aortic regurgitation. Tricuspid Valve: The tricuspid valve leaflets are thin and pliable. There is no tricuspid stenosis. There is trace tricuspid regurgitation. The right ventricular systolic pressure is estimated to be at least 21 mmHg based on an estimated right atrial pressure of 3 mm Hg. Pulmonic Valve: The pulmonic valve leaflets are thin and pliable; valve motion is normal. There is no pulmonic valvular stenosis. There is no pulmonic valvular regurgitation. Great Vessels: The aortic root is normal size. The ascending aorta is mildly enlarged. The pulmonary artery is normal size. The IVC is of normal diameter and collapses greater than 50% with a sniff. This suggests a low right atrial pressure of 3 mm Hg. Pericardium/ Pleura There is no pericardial effusion. There is no pleural effusion. MMode/2D Measurements & Calculations LVIDd: 5.2 cm LVOT diam: 2.0 cm LVIDs: 3.7 cm Ao root diam: 3.6 cm FS: 28.8 % asc Aorta Diam: 4.0 cm IVSd: 1.3 cm LVPWd: 1.5 cm LV mcdaniel. diameter/BSA (cm/m^2): 2.3 LV sys. diameter/BSA (cm/m^2): 1.7 LA A2 area: 19.2 cm2 RA long axis: 6.0 cm LA A4 area: 17.6 cm2 RA area: 16.6 cm2 LA length (vol): 5.4 cm RA vol: 39.5 ml LA vol: 53.0 ml RA : 17.7 ml/m2 LA vol index: 23.8 ml/m2 RVD1 (basal): 3.6 cm LVLs ap4: 7.1 cm LVLd ap2: 8.5 cm TAPSE_phl: 2.1 cm LVLs ap2: 7.1 cm Doppler Measurements & Calculations Ao V2 max: 165.0 cm/sec LVOT Max Riky: 128.0 cm/sec Ao V2 mean: 114.0 cm/sec LV V1 max P.6 mmHg Ao max P.0 mmHg LV V1 VTI: 24.9 cm Ao mean P.0 mmHg TATO(I,D): 2.0 cm2 Ao V2 VTI: 39.8 cm TATO(V,D): 2.4 cm2 sev ratio: 0.63 TATO indexed to BSA (cm^2/m^2): 0.88 MV E max riky: 77.1 cm/sec TR max riky: 211.7 cm/sec MV A max riky: 94.7 cm/sec TR max P.0 mmHg MV E/A: 0.81 PA V2 max: 113.0 cm/sec Med Peak E' Riky: 6.4 cm/sec PA V2 mean: 79.3 cm/sec E/E' med: 12.1 PA mean P.0 mmHg Lat Peak E' Riky: 7.8 cm/sec PA pr(Accel): 31.3 mmHg E/E' lat: 9.8 E/e' average: 11.0 MV dec time: 0.28 sec SV(LVOT): 78.2 ml AV VR_phl: 0.78 TATO(VTI)/BSA_phl: 0.88 MV P1/2t-pr_phl: 80.0 msec Reading Physician:04:24 PM
== END ==
PROVIDERS: Family Provider Family Medicine; PCP Family Medicine; Referring Provider Internal Medicine Cardiovascular Disease; Visit Provider Internal Medicine Cardiovascular Disease
DX: I77.89 Other specified disorders of arteries and arterioles (principal)
CPT/HCPCS: 93306

== ENCOUNTER 2023-05-01 19:49 | Emergency (ER) | payer MEDICARE, OTHER, SELFPAY ==
[2023-05-01] VITALS (17 sets, daily range): BP systolic 135–201; BP diastolic 72–106; PULSE 66–85; RESP 15–27; TEMP 36.6; O2SAT 94–99; BMI 28.8
--- NOTE | 2023-05-01 20:06 | DI.RAD.S_ITS ---
PROCEDURE: XR CHEST 1V INDICATIONS: chest pain TECHNIQUE: One view of the chest was acquired. COMPARISON: [facility], CR, XR CHEST 1V, 10/30/2022, 14:36. FINDINGS: Surgical changes and devices: There is an electronic device projecting over the left hemithorax. Lungs and pleura: Visualized lungs are clear. No pleural effusions or pneumothorax. Mediastinum: Mediastinal contours appear normal. Heart size is normal. Bones and chest wall: No suspicious bony lesions. Overlying soft tissues appear unremarkable. IMPRESSION: 1. No acute cardiopulmonary disease. Dictated by: Donavan Aguillon M.D. on 05/01/2023 at 21:48 Approved by: Donavan Aguillon M.D. on 05/01/2023 at 21:48
--- NOTE | 2023-05-01 20:24 | ED.GENADULT ---
HPI - General Adult General Chief complaint: Hypertension Stated complaint: hbp, almost passed out, chest pressure Time Seen by Provider: 05/01/23 20:13 Source: patient Mode of arrival: Ambulatory History of Present Illness HPI narrative: Patient is a 67 year old male. Has a known history of Yekjm-Dhfsneiqv-Ivwaq status post ablation. He currently has a ZIO patch in place. This was placed by his hydro generation manager. He states that this is just a routine thing that his hydro generation manager does about once a year. He also has a history of hypertension. A couple days ago he had an episode where he states that he became very lightheaded. He did not pass out. He was not having any palpitations. Not having chest pain. No shortness of breath. It did go away on its own and then it occurred again today. He states that he feels like maybe he was getting overheated. The event today happened after he had gone out and exercised. He would no symptoms while he was exercising. He took his blood pressure at home and found that it was elevated. He has been taking all of his medications as directed. Related Data Home Medications Medication Instructions Recorded Confirmed cholecalciferol (vitamin D3) 50 1 tab PO Q DAY ##0 09/26/17 11/08/22 mcg (2,000 unit) capsule (Vitamin D3) multivitamin (Multiple Vitamins 1 tab PO QDAY ##0 09/26/17 11/08/22 tablet) omeprazole 20 mg capsule,delayed 20 mg PO DAILY 09/06/20 11/08/22 release losartan 100 mg tablet 100 mg PO DAILY 11/08/22 11/08/22 Previous Rx's Medication Instructions Recorded acyclovir 400 mg tablet 400 mg PO BID PRN herpes #30 tabs 08/02/21 diltiazem HCl 240 mg capsule,24 240 mg PO DAILY #90 caps 11/08/22 hr,extended release hydroxyzine HCl 10 mg tablet 10 mg PO TID PRN anxiety #30 tabs 02/11/23 Allergies Allergy/AdvReac Type Severity Reaction Status Date / Time No Known Drug Allergies Allergy Verified 10/30/22 14:16 Review of Systems Constitutional Constitutional: Reports system reviewed and no additional complaints, except as documented Cardiovascular Cardiovascular: Reports system reviewed and no additional complaints, except as documented Respiratory Respiratory: Reports system reviewed and no additional complaints, except as documented Gastrointestinal Gastrointestinal: Reports system reviewed and no additional complaints, except as documented Integumentary/Breasts Skin/Breast: Reports system reviewed and no additional complaints, except as documented Neurologic Neurologic: Reports system reviewed and no additional complaints, except as documented Hematologic/Lymphatic On Anticoagulants: No Patient History Medical History Anxiety (2016) Barretts esophagus Chronic cough Collapsed lung (1974) Colon polyps (~2008) Depression (2015) Fracture of right upper extremity (~1965) Hayfever Herpes (~1979) Hypertension (2005) Iron deficiency anemia Kidney stones (1991) Measles Mumps NHL (non-Hodgkin's lymphoma) (1999) Skin problem (2004) Sleep apnea WPW (Iopbg-Myibvulai-Xqxtq syndrome) (2009) Surgical History Anesthesia History of cardiac radiofrequency ablation (RFA) (2009) History of colonoscopy (~2008) History of surgery on arm (~1964) Status post appendectomy (~1959) Family History Child Cancer Brain cancer Father Cancer Cancer of jaw bone Grandfather Cancer Brain cancer Grandmother Cancer Grandmother Heart disease Heart attack Grandfather No problems noted. Mother Stroke Social History marital status: unknown household members: none occupational status: employed Smoking Status: Never smoker alcohol intake: current substance use type: does not use Smoking Status: Never smoker alcohol intake frequency: holidays/special occasions only Substance Use Type: does not use Exam Initial Vital Signs Initial Vital Signs: Vital Signs Temperature 98 F 05/01/23 19:53 Pulse Rate 85 05/01/23 19:53 Respiratory Rate 18 05/01/23 19:53 Blood Pressure 193/102 H 05/01/23 19:53 Pulse Oximetry 99 05/01/23 19:53 Oxygen Delivery Method Room Air 05/01/23 19:53 HENMT Head: normal to inspection and normocephalic Resp Effort & Inspection: normal respiratory effort Auscultation: clear to auscultation bilaterally Cardio Rate: regular rate Rhythm: regular rhythm GI Inspection: normal to inspection Skin General: no rashes or lesions noted Neuro General: patient alert, patient awake, patient oriented x3 and moves all extremities Extrem General: capillary refill normal Course Orders Ordered: ED Orders 05/01/23 20:06 XR chest 1V Stat 05/01/23 20:11 Complete Blood Count AUTO DIFF Stat Comprehensive Metabolic Panel Stat Lipase Stat Magnesium Stat PTT Partial Thromboplastin Damián Stat Prothrombin Time INR Stat Troponin & CK Cardiac Panel Stat 05/01/23 20:15 EKG-12 Lead Stat 05/01/23 23:15 Troponin & CK Cardiac Panel Stat Discontinued Medications Hydralazine HCl (Hydralazine 20 Mg/Ml Vial) 10 mg IV NOW ONE Stop: 05/01/23 20:29 Last Admin: 05/01/23 20:45 Dose: 10 mg Documented By: JULIÁN Vital Signs Vital signs: Vital Signs - 8 hr 05/01/23 19:53 05/01/23 20:45 05/01/23 20:11 Temperature 98 F Pulse Rate 85 73 81 Respiratory Rate 18 24 Blood Pressure 193/102 H 163/100 H Pulse Oximetry 99 Oxygen Delivery Method Room Air 05/01/23 20:17 05/01/23 20:17 05/01/23 20:30 Temperature Pulse Rate 80 Respiratory Rate 27 H Blood Pressure 201/106 H 158/94 H Pulse Oximetry 97 Oxygen Delivery Method Room Air 05/01/23 20:30 05/01/23 20:45 05/01/23 20:45 Temperature Pulse Rate 72 76 Respiratory Rate Blood Pressure 163/100 H Pulse Oximetry 98 96 Oxygen Delivery Method Room Air Room Air 05/01/23 20:54 05/01/23 20:54 05/01/23 21:02 Temperature Pulse Rate 75 72 Respiratory Rate 17 Blood Pressure 174/91 H Pulse Oximetry 96 96 Oxygen Delivery Method Room Air Room Air 05/01/23 21:03 05/01/23 21:03 05/01/23 21:15 Temperature Pulse Rate 74 70 Respiratory Rate 16 16 Blood Pressure 156/89 H Pulse Oximetry 98 96 Oxygen Delivery Method Room Air Room Air Room Air 05/01/23 21:15 05/01/23 21:30 05/01/23 21:30 Temperature Pulse Rate 71 Respiratory Rate 15 Blood Pressure 143/82 H 145/81 H Pulse Oximetry 96 Oxygen Delivery Method Room Air 05/01/23 21:30 05/01/23 21:45 05/01/23 21:45 Temperature Pulse Rate 71 68 Respiratory Rate 17 Blood Pressure 145/81 H 144/72 H Pulse Oximetry 95 Oxygen Delivery Method 05/01/23 22:00 05/01/23 22:00 05/01/23 22:15 Temperature Pulse Rate 76 74 Respiratory Rate 16 22 Blood Pressure 150/87 H Pulse Oximetry 97 96 Oxygen Delivery Method 05/01/23 22:15 05/01/23 22:30 05/01/23 22:30 Temperature Pulse Rate 72 Respiratory Rate 18 Blood Pressure 136/77 135/77 Pulse Oximetry 96 Oxygen Delivery Method Medical Decision Making Medical Records Medical records reviewed: Yes I reviewed the patient's medical records. Lab Data Lab results reviewed: Yes I reviewed the patient's lab results. 05/01/23 20:11 05/01/23 20:11 Labs: Lab Results 05/01/23 05/01/23 05/01/23 Range/Units 20:11 20:11 20:11 WBC 7.2 (4.5-11.0) X10^3/uL RBC 4.52 (4.5-5.9) X10^6/uL Hgb 14.1 (13.5-17.5) g/dL Hct 41.2 (41-53) % MCV 91.2 (80-100) fL MCH 31.2 (26-34) PG MCHC 34.3 (30-36) % RDW 13.4 (11.6-14.8) % Plt Count 189 (150-400) X10^3/uL Neut % (Auto) 61.0 (50-75) % Lymph % (Auto) 27.5 (25-40) % [place] % (Auto) 7.7 (3-14) % Eos % (Auto) 2.8 (2-4) % Baso % (Auto) 1.0 (0-2) % Neut # (Auto) 4400 (8041-5259) /uL Lymph # (Auto) 2000 (4595-2430) /uL [place] # (Auto) 600 (0-900) /uL Eos # (Auto) 200 (0-450) /uL Baso # (Auto) 100 (0-100) /uL PT 11.7 (10.1-12.7) SECONDS INR 1.0 (0.9-1.3) APTT 32 (26-36) SECONDS Sodium 140 (137-145) mmol/L Potassium 3.9 (3.4-5.1) mmol/L Chloride 101 (98-107) mmol/L Carbon Dioxide 29 (22-32) mmol/L BUN 16 (9-20) mg/dL Creatinine 0.99 (0.66-1.25) mg/dL Estimated GFR > 60 (>60) mL/min BUN/Creatinine Ratio 16.2 (6-22) Glucose 105 (80-110) mg/dL Calcium 9.6 (8.4-10.2) mg/dL Magnesium 2.0 (1.6-2.3) mg/dL Total Bilirubin 0.5 (0.2-1.3) mg/dL AST 33 (17-59) IU/L ALT 37 (<50) IU/L Alkaline Phosphatase 81 (38-126) U/L Total Creatine Kinase 163 (55-170) U/L Troponin I < 0.012 (0.01-0.034) ng/mL Total Protein 7.1 (6.3-8.2) g/dL Albumin 4.6 (3.5-5.0) g/dL Globulin 2.5 (1.7-4.1) g/dL Albumin/Globulin Ratio 1.8 (1.0-2.8) Lipase 40 (23-300) U/L 05/01/23 Range/Units 23:15 WBC (4.5-11.0) X10^3/uL RBC (4.5-5.9) X10^6/uL Hgb (13.5-17.5) g/dL Hct (41-53) % MCV (80-100) fL MCH (26-34) PG MCHC (30-36) % RDW (11.6-14.8) % Plt Count (150-400) X10^3/uL Neut % (Auto) (50-75) % Lymph % (Auto) (25-40) % [place] % (Auto) (3-14) % Eos % (Auto) (2-4) % Baso % (Auto) (0-2) % Neut # (Auto) (1743-4385) /uL Lymph # (Auto) (4424-6264) /uL [place] # (Auto) (0-900) /uL Eos # (Auto) (0-450) /uL Baso # (Auto) (0-100) /uL PT (10.1-12.7) SECONDS INR (0.9-1.3) APTT (26-36) SECONDS Sodium (137-145) mmol/L Potassium (3.4-5.1) mmol/L Chloride (98-107) mmol/L Carbon Dioxide (22-32) mmol/L BUN (9-20) mg/dL Creatinine (0.66-1.25) mg/dL Estimated GFR (>60) mL/min BUN/Creatinine Ratio (6-22) Glucose (80-110) mg/dL Calcium (8.4-10.2) mg/dL Magnesium (1.6-2.3) mg/dL Total Bilirubin (0.2-1.3) mg/dL AST (17-59) IU/L ALT (<50) IU/L Alkaline Phosphatase (38-126) U/L Total Creatine Kinase 126 (55-170) U/L Troponin I < 0.012 (0.01-0.034) ng/mL Total Protein (6.3-8.2) g/dL Albumin (3.5-5.0) g/dL Globulin (1.7-4.1) g/dL Albumin/Globulin Ratio (1.0-2.8) Lipase (23-300) U/L Imaging Data Chest x-ray: Radiologist's Impression: ROCEDURE:? XR CHEST 1V ? INDICATIONS:? chest pain ? TECHNIQUE:? One view of the chest was acquired.? ? COMPARISON:? [facility], , XR CHEST 1V, 10/30/2022, 14:36. ? FINDINGS:? ? Surgical changes and devices:? There is an electronic device projecting over the left hemithorax.? ? Lungs and pleura:? Visualized lungs are clear.? No pleural effusions or pneumothorax.? ? Mediastinum:? Mediastinal contours appear normal.? Heart size is normal.? ? Bones and chest wall:? No suspicious bony lesions.? Overlying soft tissues appear unremarkable.? ? IMPRESSION:? ? 1.? No acute cardiopulmonary disease. ECG Data Attestation: I personally reviewed and interpreted this ECG as follows: Interpretation: Sinus rhythm Ventricular rate is 77 Left axis deviation Normal QRS Normal QTC No ST T wave changes MDM Narrative Medical decision making narrative: Patient's blood pressure did improve with time and also with 1 dose of hydralazine. His EKG is sinus rhythm. He is had 2- troponins. Chest x-ray is unremarkable. Patient is not having an acute MA. There are no signs of any other end-organ dysfunction because of the hypertension. He is feeling better after time here in the ER. He recently had an echocardiogram performed as an outpatient that was unchanged from prior. No signs of infection. Will discharge patient home with instructions to continue to take all of his medications and continue to take his blood pressure at home as he may need the suggested if he continues to be elevated. He was given return precautions. He expressed understanding and agreement. Discharge Plan Departure Patient Disposition: Home Clinical Impression: Hypertension Instructions: DI for High Blood Pressure Activity Restrictions/Additional Instructions: I do recommend that you continue to take all of your medications as directed and continue to take your blood pressure at home. Contact your primary doctor and your hydro generation manager for follow-up. Return to the emergency department for new or worsening symptoms. Prescriptions: No Action omeprazole 20 mg capsule,delayed release(DR/EC) 20 mg PO DAILY losartan 100 mg tablet 100 mg PO DAILY Rx Instructions: Take one tab daily - patient added additional 1 tab every 3 days due to elevated BP diltiazem HCl 240 mg capsule,extended release 24 hr 240 mg PO DAILY Qty: 90 3RF multivitamin [Multiple Vitamins] 1 EACH tablet 1 tab PO QDAY Qty: 0 cholecalciferol (vitamin D3) [Vitamin D3] 2,000 UNIT capsule 1 tab PO Q DAY Qty: 0 acyclovir 400 mg tablet 400 mg PO BID PRN (Reason: herpes) Qty: 30 1RF hydroxyzine HCl 10 mg tablet 10 mg PO TID PRN (Reason: anxiety) Qty: 30 2RF Referrals: Laura Lackey MD [Primary Care Provider] - Stand Alone Forms: Patient Portal/API
[2023-05-01 20:26] LABS: Add Manual Diff / Slide Review NO; Basophils Absolute Auto 100 /uL (0-100); Eosinophils Absolute Auto 200 /uL (0-450); Eosinophils Percent Auto 2.8 % (2-4); Hematocrit 41.2 % (41-53); Hemoglobin 14.1 g/dL (13.5-17.5); Lymphocytes Absolute Auto 2000 /uL (1100-4500); Lymphocytes Percent Auto 27.5 % (25-40); Mean Corpuscular HGB Conc 34.3 % (30-36); Mean Corpuscular Hemoglobin 31.2 PG (26-34); Mean Corpuscular Volume 91.2 fL (80-100); Monocytes Absolute Auto 600 /uL (0-900); Monocytes Percent Auto 7.7 % (3-14); Neutrophils Absolute Auto 4400 /uL (1500-7000); Platelet Count 189 X10^3/uL (150-400); Prothrombin Time 11.7 SECONDS (10.1-12.7); Red Blood Cell Count 4.52 X10^6/uL (4.5-5.9); Red Cell Distribution Width 13.4 % (11.6-14.8); White Blood Cell Count 7.2 X10^3/uL (4.5-11.0)
[2023-05-01 20:28] LABS: PTT Partial Thromboplastin Tim 32 SECONDS (26-36)
[2023-05-01 20:29] LABS: Alanine Aminotransferase 37 IU/L (<50); Albumin 4.6 g/dL (3.5-5.0); Albumin Globulin Ratio 1.8 (1.0-2.8); Alkaline Phosphatase 81 U/L (38-126); Aspartate Aminotransferase 33 IU/L (17-59); BUN Creatinine Ratio 16.2 (6-22); Bilirubin Total 0.5 mg/dL (0.2-1.3); Blood Urea Nitrogen 16 mg/dL (9-20); Calcium 9.6 mg/dL (8.4-10.2); Carbon Dioxide 29 mmol/L (22-32); Chloride 101 mmol/L (98-107); Creatine Kinase 163 U/L (55-170); Estimated Glomerular Filt Rate > 60 mL/min (>60); Globulin 2.5 g/dL (1.7-4.1); Glucose 105 mg/dL (80-110); HEMOLYSIS < 15 (0-50); Lipase 40 U/L (23-300); Potassium 3.9 mmol/L (3.4-5.1); Sodium 140 mmol/L (137-145); Total Protein 7.1 g/dL (6.3-8.2)
[2023-05-01 20:41] LABS: Troponin I < 0.012 ng/mL (0.01-0.034)
[2023-05-01] MEDS: HYDRALAZINE 20 MG/ML VIAL 10 MG IV (20:45)
[2023-05-01 23:34] LABS: Creatine Kinase 126 U/L (55-170)
[2023-05-01 23:47] LABS: Troponin I < 0.012 ng/mL (0.01-0.034)
== END 2023-05-02 00:16 | disposition home or self-care (01) ==
PROVIDERS: Emergency Provider Emergency Medicine; Family Provider Family Medicine; PCP Family Medicine
DX: I10 Essential (primary) hypertension (principal); R07.9 Chest pain, unspecified
CPT/HCPCS: 36415; 71045; 80053; 82550; 83690; 83735; 84484; 85025; 85610; 85730; 93005; 96374; 99284; J0360

== ENCOUNTER → 2023-06-26 08:52 | Outpatient (CLI) | payer MEDICARE, OTHER, SELFPAY ==
[2023-06-26 10:14] LABS: Add Manual Diff / Slide Review NO; Basophils Absolute Auto 0 /uL (0-100); Basophils Percent Auto 0.7 % (0-2); Eosinophils Absolute Auto 100 /uL (0-450); Eosinophils Percent Auto 3.2 % (2-4); Hematocrit 42.3 % (41-53); Hemoglobin 14.5 g/dL (13.5-17.5); Lymphocytes Absolute Auto 800 /uL (1100-4500); Lymphocytes Percent Auto 18.3 % (25-40); Mean Corpuscular HGB Conc 34.3 % (30-36); Mean Corpuscular Hemoglobin 31.4 PG (26-34); Mean Corpuscular Volume 91.6 fL (80-100); Monocytes Absolute Auto 200 /uL (0-900); Monocytes Percent Auto 5.4 % (3-14); Neutrophils Absolute Auto 3100 /uL (1500-7000); Neutrophils Percent Auto 72.4 % (50-75); Platelet Count 172 X10^3/uL (150-400); Red Blood Cell Count 4.62 X10^6/uL (4.5-5.9); Red Cell Distribution Width 13.9 % (11.6-14.8); White Blood Cell Count 4.3 X10^3/uL (4.5-11.0)
[2023-06-26 10:46] LABS: Cholesterol 136 mg/dL (140-199); HDL Cholesterol 56 mg/dL (40-60); LDL Cholesterol Calculated 52 mg/dL (<100); Triglycerides 140 mg/dL (35-150)
[2023-06-26 10:47] LABS: Alanine Aminotransferase 35 IU/L (<50); Albumin 4.3 g/dL (3.5-5.0); Alkaline Phosphatase 80 U/L (38-126); Aspartate Aminotransferase 31 IU/L (17-59); BUN Creatinine Ratio 17.2 (6-22); Bilirubin Total 0.8 mg/dL (0.2-1.3); Blood Urea Nitrogen 15 mg/dL (9-20); Calcium 8.9 mg/dL (8.4-10.2); Carbon Dioxide 29 mmol/L (22-32); Chloride 104 mmol/L (98-107); Estimated Glomerular Filt Rate > 60 mL/min (>60); Globulin 2.2 g/dL (1.7-4.1); Glucose 130 mg/dL (80-110); HEMOLYSIS < 15 (0-50); Potassium 3.9 mmol/L (3.4-5.1); Sodium 141 mmol/L (137-145); Total Protein 6.5 g/dL (6.3-8.2)
[2023-06-26 10:57] LABS: HEMOLYSIS < 15 (0-50); Iron 125 ug/dL (49-181)
[2023-06-26 11:07] LABS: Percent Iron Saturation 38 % (20-50); Total Iron Binding Capacity 327 ug/dL (261-462); Transferrin 230 mg/dL (206-381)
[2023-06-26 11:15] LABS: Ferritin 38 ng/mL (18-464)
[2023-06-28 21:56] LABS: Free Kappa Lt Chains, Serum 12.5 mg/L (3.3-19.4); Free Lambda Lt Chains,Serum 6.7 mg/L (5.7-26.3)
[2023-07-01 16:27] LABS: Albumin 3.7 g/dL (2.9-4.4); Alpha-1-Globulin 0.2 g/dL (0.0-0.4); Alpha-2-Globulin 0.7 g/dL (0.4-1.0); Gamma Globulin 0.6 g/dL (0.4-1.8); Globulin Total 2.3 g/dL (2.2-3.9); Immunoglobulin A, Serum 25 mg/dL (61-437); Immunoglobulin G,Serum 567 mg/dL (603-1613); Immunoglobulin M, Serum 86 mg/dL (20-172)
== END ==
PROVIDERS: Internal Medicine Hematology & Oncology; Family Provider Family Medicine; PCP Family Medicine; Referring Provider Internal Medicine Cardiovascular Disease; Visit Provider Internal Medicine Cardiovascular Disease
DX: D50.9 Iron deficiency anemia, unspecified (principal); I25.10 Atherosclerotic heart disease of native coronary artery without angina pectoris; I25.84 Coronary atherosclerosis due to calcified coronary lesion; I10 Essential (primary) hypertension; C88.0 Waldenstrom macroglobulinemia; R53.83 Other fatigue; Z85.72 Personal history of non-Hodgkin lymphomas
CPT/HCPCS: 36415; 80053; 80061; 82728; 82784; 83540; 83550; 83883; 84155; 84165; 85025; 86334

== ENCOUNTER → 2023-09-24 11:20 | Outpatient (CLI) | payer MEDICARE, OTHER, SELFPAY ==
--- NOTE | 2023-09-24 11:22 | DI.RAD.S_ITS ---
PROCEDURE: XR KNEE LT 3V INDICATIONS: knee pain TECHNIQUE: 3 views of the knee were acquired. COMPARISON: None. FINDINGS: Bones: No fractures or dislocations. No suspicious bony lesions. Soft tissues: No joint effusion. No suspicious soft tissue calcifications. IMPRESSION: No acute bony abnormality or significant effusion. Dictated by: Amber Galeas M.D. on 09/24/2023 at 14:18 Approved by: Amber Galeas M.D. on 09/24/2023 at 14:19
== END ==
PROVIDERS: Family Provider Family Medicine; PCP Family Medicine; Referring Provider Family Medicine; Visit Provider Family Medicine
DX: M25.562 Pain in left knee (principal)
CPT/HCPCS: 73562

== ENCOUNTER → 2023-11-11 08:05 | Outpatient (CLI) | payer MEDICARE, OTHER, SELFPAY ==
[2023-11-11 09:14] LABS: Add Manual Diff / Slide Review NO; Basophils Absolute Auto 0 /uL (0-100); Basophils Percent Auto 0.7 % (0-2); Eosinophils Absolute Auto 200 /uL (0-450); Eosinophils Percent Auto 3.6 % (2-4); Hematocrit 42.9 % (41-53); Hemoglobin 14.7 g/dL (13.5-17.5); Lymphocytes Absolute Auto 1300 /uL (1100-4500); Lymphocytes Percent Auto 21.3 % (25-40); Mean Corpuscular HGB Conc 34.3 % (30-36); Mean Corpuscular Hemoglobin 31.6 PG (26-34); Monocytes Absolute Auto 500 /uL (0-900); Monocytes Percent Auto 7.6 % (3-14); Neutrophils Absolute Auto 4000 /uL (1500-7000); Neutrophils Percent Auto 66.8 % (50-75); Platelet Count 202 X10^3/uL (150-400); Red Blood Cell Count 4.66 X10^6/uL (4.5-5.9); Red Cell Distribution Width 13.6 % (11.6-14.8)
[2023-11-11 09:41] LABS: Alanine Aminotransferase 32 IU/L (<50); Albumin 4.4 g/dL (3.5-5.0); Albumin Globulin Ratio 1.8 (1.0-2.8); Alkaline Phosphatase 81 U/L (38-126); Aspartate Aminotransferase 31 IU/L (17-59); BUN Creatinine Ratio 17.2 (6-22); Bilirubin Total 0.8 mg/dL (0.2-1.3); Blood Urea Nitrogen 15 mg/dL (9-20); Calcium 9.3 mg/dL (8.4-10.2); Carbon Dioxide 29 mmol/L (22-32); Chloride 104 mmol/L (98-107); Estimated Glomerular Filt Rate > 60 mL/min (>60); Globulin 2.4 g/dL (1.7-4.1); Glucose 101 mg/dL (80-110); HEMOLYSIS < 15 (0-50); Sodium 140 mmol/L (137-145); Total Protein 6.8 g/dL (6.3-8.2)
[2023-11-12 19:13] LABS: Free Kappa Lt Chains, Serum 16.4 mg/L (3.3-19.4); Free Lambda Lt Chains,Serum 7.7 mg/L (5.7-26.3)
[2023-11-13 14:00] LABS: Alpha-1-Globulin 0.3 g/dL (0.0-0.4); Alpha-2-Globulin 0.8 g/dL (0.4-1.0); Gamma Globulin 0.6 g/dL (0.4-1.8); Globulin Total 2.7 g/dL (2.2-3.9); Immunoglobulin A, Serum 29 mg/dL (61-437); Immunoglobulin G,Serum 589 mg/dL (603-1613); Immunoglobulin M, Serum 122 mg/dL (20-172); Protein, Total 6.7 g/dL (6.0-8.5)
== END ==
LOC: LAB 08:08
PROVIDERS: Family Provider Family Medicine; PCP Family Medicine; Referring Provider Internal Medicine Hematology & Oncology; Visit Provider Internal Medicine Hematology & Oncology
DX: C88.0 Waldenstrom macroglobulinemia (principal)
CPT/HCPCS: 36415; 80053; 82784; 83883; 84155; 84165; 85025; 86334

== ENCOUNTER → 2024-02-10 08:37 | Outpatient (CLI) | payer MEDICARE, OTHER, SELFPAY ==
[2024-02-10 09:52] LABS: Add Manual Diff / Slide Review NO; Basophils Absolute Auto 0 /uL (0-100); Basophils Percent Auto 0.6 % (0-2); Eosinophils Absolute Auto 200 /uL (0-450); Eosinophils Percent Auto 4.1 % (2-4); Hematocrit 43.1 % (41-53); Hemoglobin 14.7 g/dL (13.5-17.5); Lymphocytes Absolute Auto 1400 /uL (1100-4500); Mean Corpuscular HGB Conc 34.1 % (30-36); Mean Corpuscular Hemoglobin 31.6 PG (26-34); Mean Corpuscular Volume 92.5 fL (80-100); Monocytes Absolute Auto 400 /uL (0-900); Monocytes Percent Auto 7.7 % (3-14); Neutrophils Absolute Auto 3000 /uL (1500-7000); Neutrophils Percent Auto 60.6 % (50-75); Platelet Count 197 X10^3/uL (150-400); Red Blood Cell Count 4.66 X10^6/uL (4.5-5.9); Red Cell Distribution Width 13.7 % (11.6-14.8)
[2024-02-10 10:15] LABS: Alanine Aminotransferase 36 IU/L (<50); Albumin 4.5 g/dL (3.5-5.0); Albumin Globulin Ratio 2.1 (1.0-2.8); Alkaline Phosphatase 87 U/L (38-126); Aspartate Aminotransferase 31 IU/L (17-59); BUN Creatinine Ratio 21.3 (6-22); Blood Urea Nitrogen 17 mg/dL (9-20); Calcium 9.3 mg/dL (8.4-10.2); Carbon Dioxide 30 mmol/L (22-32); Chloride 107 mmol/L (98-107); Estimated Glomerular Filt Rate > 60 mL/min (>60); Globulin 2.1 g/dL (1.7-4.1); Glucose 116 mg/dL (80-110); HEMOLYSIS < 15 (0-50); Potassium 4.2 mmol/L (3.4-5.1); Sodium 141 mmol/L (137-145); Total Protein 6.6 g/dL (6.3-8.2)
[2024-02-11 15:27] LABS: Free Kappa Lt Chains, Serum 15.4 mg/L (3.3-19.4); Free Lambda Lt Chains,Serum 9.4 mg/L (5.7-26.3)
[2024-02-12 15:18] LABS: Albumin 3.8 g/dL (2.9-4.4); Alpha-1-Globulin 0.2 g/dL (0.0-0.4); Alpha-2-Globulin 0.7 g/dL (0.4-1.0); Gamma Globulin 0.6 g/dL (0.4-1.8); Globulin Total 2.4 g/dL (2.2-3.9); Immunoglobulin A, Serum 29 mg/dL (61-437); Immunoglobulin G,Serum 593 mg/dL (603-1613); Immunoglobulin M, Serum 113 mg/dL (20-172); Protein, Total 6.2 g/dL (6.0-8.5)
[2024-02-13 13:22] LABS: IGA 29
[2024-02-13 13:23] LABS: IGG 593
[2024-02-13 13:24] LABS: IGM 113
== END ==
PROVIDERS: Family Provider Family Medicine; PCP Family Medicine; Referring Provider Internal Medicine Hematology & Oncology; Visit Provider Internal Medicine Hematology & Oncology
DX: C88.0 Waldenstrom macroglobulinemia (principal)
CPT/HCPCS: 36415; 80053; 82784; 83883; 84155; 84165; 85025; 86334

== ENCOUNTER → 2024-05-06 07:03 | Outpatient (CLI) | payer MEDICARE, OTHER, SELFPAY ==
--- NOTE | 2024-05-06 07:08 | DI.RAD.S_ITS ---
PROCEDURE: XR HAND RT MIN 3V INDICATIONS: hand pain TECHNIQUE: 3 views of the hand(s) acquired. COMPARISON: None. FINDINGS: Bones: No fractures or dislocations. Carpal bones are normally aligned. No suspicious bony lesions. Mild osteoarthritic changes to the carpal joints, carpal metacarpal joints and DIP joints. Soft tissues: No suspicious soft tissue calcifications. IMPRESSION: 1. No acute bony abnormality. 2. Mild osteoarthritic changes as described above. Dictated by: Cecil Alejo M.D. on 05/06/2024 at 10:03 Approved by: Cecil Alejo M.D. on 05/06/2024 at 10:08
[2024-05-06 08:09] LABS: Add Manual Diff / Slide Review NO; Basophils Absolute Auto 0 /uL (0-100); Basophils Percent Auto 0.8 % (0-2); Eosinophils Absolute Auto 200 /uL (0-450); Eosinophils Percent Auto 4.3 % (2-4); Hematocrit 42.6 % (41-53); Hemoglobin 14.4 g/dL (13.5-17.5); Lymphocytes Absolute Auto 1100 /uL (1100-4500); Lymphocytes Percent Auto 23.3 % (25-40); Mean Corpuscular HGB Conc 33.7 % (30-36); Mean Corpuscular Hemoglobin 31.7 PG (26-34); Mean Corpuscular Volume 93.9 fL (80-100); Monocytes Absolute Auto 500 /uL (0-900); Monocytes Percent Auto 9.7 % (3-14); Neutrophils Absolute Auto 2900 /uL (1500-7000); Neutrophils Percent Auto 61.9 % (50-75); Platelet Count 190 X10^3/uL (150-400); Red Blood Cell Count 4.54 X10^6/uL (4.5-5.9); Red Cell Distribution Width 13.6 % (11.6-14.8); White Blood Cell Count 4.7 X10^3/uL (4.5-11.0)
[2024-05-06 08:19] LABS: Hemoglobin A1C% w Est Avg Glu 5.6 % (4.0-6.0)
[2024-05-06 08:37] LABS: Cholesterol 140 mg/dL (140-199); HDL Cholesterol 54 mg/dL (40-60); LDL Cholesterol Calculated 60 mg/dL (<100); Triglycerides 130 mg/dL (35-150)
[2024-05-06 08:43] LABS: Alanine Aminotransferase 36 IU/L (<50); Albumin 4.4 g/dL (3.5-5.0); Albumin Globulin Ratio 2.3 (1.0-2.8); Alkaline Phosphatase 82 U/L (38-126); Aspartate Aminotransferase 36 IU/L (17-59); BUN Creatinine Ratio 26.6 (6-22); Blood Urea Nitrogen 25 mg/dL (9-20); Calcium 8.8 mg/dL (8.4-10.2); Carbon Dioxide 28 mmol/L (22-32); Chloride 106 mmol/L (98-107); Estimated Glomerular Filt Rate > 60 mL/min (>60); Globulin 1.9 g/dL (1.7-4.1); Glucose 98 mg/dL (80-110); HEMOLYSIS < 15 (0-50); Potassium 4.1 mmol/L (3.4-5.1); Sodium 141 mmol/L (137-145); Total Protein 6.3 g/dL (6.3-8.2)
[2024-05-07 19:12] LABS: Free Kappa Lt Chains, Serum 13.7 mg/L (3.3-19.4); Free Lambda Lt Chains,Serum 8.5 mg/L (5.7-26.3)
[2024-05-08 14:40] LABS: Immunoglobulin A, Serum 29 mg/dL (61-437); Immunoglobulin G,Serum 596 mg/dL (603-1613); Immunoglobulin M, Serum 96 mg/dL (20-172)
[2024-05-08 15:36] LABS: Albumin 3.9 g/dL (2.9-4.4); Alpha-1-Globulin 0.2 g/dL (0.0-0.4); Alpha-2-Globulin 0.7 g/dL (0.4-1.0); Gamma Globulin 0.5 g/dL (0.4-1.8); Globulin Total 2.2 g/dL (2.2-3.9); Protein, Total 6.1 g/dL (6.0-8.5)
== END ==
PROVIDERS: Family Provider Family Medicine; PCP Family Medicine; Referring Provider Internal Medicine Hematology & Oncology; Visit Provider Internal Medicine Hematology & Oncology
DX: R22.33 Localized swelling, mass and lump, upper limb, bilateral (principal); N52.9 Male erectile dysfunction, unspecified; C88.0 Waldenstrom macroglobulinemia
CPT/HCPCS: 36415; 73130; 80053; 80061; 82784; 83036; 83883; 84155; 84165; 85025; 86334

== ENCOUNTER → 2024-07-01 06:43 | Outpatient (CLI) | payer MEDICARE, OTHER, SELFPAY ==
--- NOTE | 2024-07-01 06:46 | DI.ECHO.S_ITS ---
[facility] : : [address] : : [place] : : [id number] : : Phone: [phone] Echocardiogram Report + + :Name: GENOVEVA ANDREW Study Date: 07/01/2024 Height: 73 in : :[facility] ReadingLocation: Weight: 210 lb : : Gender: Male BSA: 2.2 m2 : :: 1955 Age: 69 yrs BP: 164/102 mmHg: :Reason For Study: ASCENDING AORTA ELARGEMENT : :Ordering Physician: ENRIQUE, : :RADHA Performed By: Niya Liu : :Referring: RADHA MILLAN : + + Interpretation Summary 1) Normal left ventricular thickness, size, wall motion, and systolic function (EF 55-60%). 2) Normal right ventricular size and function. 3) There is mild aortic regurgitation. 4) The ascending aorta is mildly enlarged at 4.0cm. 5) Hypertension present during the study (BP 140/102mmHg). 6) Compared to the Echo 04/15/2023, no significant change. Procedure: A two-dimensional transthoracic echocardiogram with color flow and Doppler was performed. The study quality was technically adequate. Comparison is made with the echocardiogram of 04/15/2023. The patient was in sinus rhythm with heart rates between 71-82 bpm during the exam. Left Ventricle: The left ventricle is normal in size and wall thickness. The ejection fraction is estimated to be 55-60%. Left ventricular systolic function appears normal without focal wall motion abnormalities. Right Ventricle: The right ventricle is normal in size and function. Atria: The left atrium is borderline dilated. Right atrial size is normal. There is no Doppler evidence for an interatrial shunt. Mitral Valve: The mitral valve is normal in structure and function. There is trace mitral regurgitation. Aortic Valve: The aortic valve is trileaflet. The aortic valve opens well. There is no aortic valve stenosis. There is mild aortic regurgitation. Tricuspid Valve: The tricuspid valve is normal in structure and function. There is mild tricuspid regurgitation. The right ventricular systolic pressure is estimated to be at least 33 mmHg based on an estimated right atrial pressure of 3 mm Hg. Pulmonic Valve: The pulmonic valve leaflets are thin and pliable; valve motion is normal. There is mild pulmonic regurgitation. Great Vessels: The aortic root is normal size. The ascending aorta is mildly enlarged. The IVC is of normal diameter and collapses greater than 50% with a sniff. This suggests a low right atrial pressure of 3 mm Hg. Pericardium/ Pleura There is no pericardial effusion. There is no pleural effusion. MMode/2D Measurements & Calculations LVIDd: 5.3 cm LVOT diam: 2.2 cm LVIDs: 3.5 cm Ao root diam: 3.6 cm FS: 34.6 % asc Aorta Diam: 4.0 cm EPSS: 0.74 cm IVSd: 0.95 cm LVPWd: 1.0 cm LV mcdaniel. diameter/BSA (cm/m^2): 2.4 LV sys. diameter/BSA (cm/m^2): 1.6 LA A2 area: 25.7 cm2 RA long axis: 6.1 cm LA A4 area: 23.6 cm2 RA area: 20.2 cm2 LA length (vol): 6.1 cm RA vol: 56.9 ml LA vol: 83.9 ml RA : 25.9 ml/m2 LA vol index: 38.2 ml/m2 IVC diam: 1.7 cm RVD1 (basal): 3.7 cm RVD2 (mid): 2.7 cm TAPSE: 2.1 cm Doppler Measurements & Calculations Ao V2 max: 148.9 cm/sec LVOT Max Riky: 127.1 cm/sec Ao V2 mean: 103.7 cm/sec LV V1 max P.5 mmHg Ao max P.9 mmHg LV V1 VTI: 24.4 cm Ao mean P.8 mmHg TATO(I,D): 3.1 cm2 Ao V2 VTI: 29.6 cm TATO(V,D): 3.2 cm2 sev ratio: 0.82 TATO indexed to BSA (cm^2/m^2): 1.4 AI P1/2t: 505.3 msec AI dec slope: 261.8 cm/sec2 MV E max riky: 71.1 cm/sec TR max riky: 274.5 cm/sec MV A max riky: 89.6 cm/sec TR max P.1 mmHg MV E/A: 0.79 PA V2 max: 104.6 cm/sec Med Peak E' Riky: 6.7 cm/sec PA V2 mean: 70.3 cm/sec E/E' med: 10.7 PA mean P.2 mmHg Lat Peak E' Riky: 7.8 cm/sec PA pr(Accel): 15.6 mmHg E/E' lat: 9.1 E/e' average: 9.9 MV dec time: 0.17 sec SV(LVOT): 92.2 ml Reading Physician:05:12 PM
== END ==
PROVIDERS: Family Provider Family Medicine; PCP Family Medicine; Referring Provider Internal Medicine Cardiovascular Disease; Visit Provider Internal Medicine Cardiovascular Disease
DX: I77.89 Other specified disorders of arteries and arterioles (principal); I08.2 Rheumatic disorders of both aortic and tricuspid valves
CPT/HCPCS: 93306

== ENCOUNTER → 2024-12-16 06:55 | Outpatient (CLI) | payer MEDICARE, OTHER, SELFPAY ==
[2024-12-16 08:55] LABS: Hematocrit 42.3 % (41-53); Hemoglobin 14.4 g/dL (13.5-17.5); Mean Corpuscular Hemoglobin 32.3 PG (26-34); Mean Corpuscular Volume 95.1 fL (80-100); Platelet Count 185 X10^3/uL (150-400); Red Blood Cell Count 4.44 X10^6/uL (4.5-5.9); Red Cell Distribution Width 13.7 % (11.6-14.8); White Blood Cell Count 5.1 X10^3/uL (4.5-11.0)
[2024-12-16 09:12] LABS: Cholesterol 162 mg/dL (140-199); HDL Cholesterol 48 mg/dL (40-60); LDL Cholesterol Calculated 81 mg/dL (<100); Triglycerides 167 mg/dL (35-150)
== END ==
PROVIDERS: Family Provider Family Medicine; PCP Family Medicine; Referring Provider Internal Medicine Cardiovascular Disease; Visit Provider Internal Medicine Cardiovascular Disease
DX: I10 Essential (primary) hypertension (principal); E78.5 Hyperlipidemia, unspecified
CPT/HCPCS: 36415; 80061; 85027

== ENCOUNTER → 2024-12-21 14:48 | Outpatient (CLI) | payer MEDICARE, OTHER, SELFPAY ==
[2024-12-21 15:38] LABS: Basophils Absolute Auto 100 /uL (0-100); Basophils Percent Auto 0.8 % (0-2); Eosinophils Absolute Auto 300 /uL (0-450); Eosinophils Percent Auto 4.2 % (2-4); Hematocrit 42.5 % (41-53); Hemoglobin 14.6 g/dL (13.5-17.5); Lymphocytes Absolute Auto 1200 /uL (1100-4500); Lymphocytes Percent Auto 17.3 % (25-40); Mean Corpuscular HGB Conc 34.3 % (30-36); Mean Corpuscular Hemoglobin 32.8 PG (26-34); Mean Corpuscular Volume 95.6 fL (80-100); Monocytes Absolute Auto 400 /uL (0-900); Monocytes Percent Auto 5.6 % (3-14); Neutrophils Absolute Auto 5000 /uL (1500-7000); Neutrophils Percent Auto 72.1 % (50-75); Red Blood Cell Count 4.44 X10^6/uL (4.5-5.9); Red Cell Distribution Width 13.8 % (11.6-14.8)
[2024-12-21 15:40] LABS: Add Manual Diff / Slide Review SLIDE REVIEW
[2024-12-21 15:51] LABS: Alanine Aminotransferase 31 IU/L (<50); Albumin 4.6 g/dL (3.5-5.0); Alkaline Phosphatase 87 U/L (38-126); Aspartate Aminotransferase 33 IU/L (17-59); Bilirubin Total 0.8 mg/dL (0.2-1.3); Blood Urea Nitrogen 20 mg/dL (9-20); Calcium 9.2 mg/dL (8.4-10.2); Carbon Dioxide 29 mmol/L (22-32); Chloride 102 mmol/L (98-107); Estimated Glomerular Filt Rate > 60 mL/min (>60); Globulin 2.3 g/dL (1.7-4.1); Glucose 114 mg/dL (80-110); HEMOLYSIS < 15 (0-50); Lactate Dehydrogenase 177 U/L (120-246); Potassium 4.1 mmol/L (3.4-5.1); Sodium 140 mmol/L (137-145); Total Protein 6.9 g/dL (6.3-8.2)
[2024-12-21 15:55] LABS: RBC Morphology Normal Morphology
[2024-12-21 15:57] LABS: Platelet Estimate Adequate on smear
== END ==
LOC: LAB 14:51
PROVIDERS: Family Provider Family Medicine; PCP Family Medicine
DX: C88.00 Waldenstrom macroglobulinemia not having achieved remission (principal)
CPT/HCPCS: 36415; 80053; 83615; 85025

== ENCOUNTER 2025-01-04 17:16 | Emergency (ER) | payer MEDICARE, OTHER, SELFPAY ==
[2025-01-04] VITALS (12 sets, daily range): BP systolic 144–187; BP diastolic 76–105; PULSE 63–86; RESP 18; TEMP 36.5; O2SAT 94–97; BMI 28.5
--- NOTE | 2025-01-04 17:30 | DI.RAD.S_ITS ---
PROCEDURE: XR CHEST 1V INDICATIONS: Shortness of breath TECHNIQUE: One view of the chest was acquired. COMPARISON: [facility], CR, XR CHEST 1V, 05/01/2023, 20:18. FINDINGS: Surgical changes and devices: None. Lungs and pleura: Lungs are clear. No pleural effusions or pneumothorax. Mediastinum: Mediastinal contours appear normal. Heart size is normal. Bones and chest wall: No suspicious bony lesions. Overlying soft tissues appear unremarkable. IMPRESSION: No acute cardiopulmonary pathology. Dictated by: Robi Woodall M.D. on 01/04/2025 at 17:46 Approved by: Robi Woodall M.D. on 01/04/2025 at 17:47
--- NOTE | 2025-01-04 17:38 | EKG_ITS ---
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
[2025-01-04 17:49] LABS: Add Manual Diff / Slide Review NO; Basophils Absolute Auto 100 /uL (0-100); Eosinophils Absolute Auto 200 /uL (0-450); Eosinophils Percent Auto 4.2 % (2-4); Hematocrit 42.6 % (41-53); Hemoglobin 14.3 g/dL (13.5-17.5); Lymphocytes Absolute Auto 1500 /uL (1100-4500); Lymphocytes Percent Auto 25.6 % (25-40); Mean Corpuscular HGB Conc 33.6 % (30-36); Mean Corpuscular Volume 95.2 fL (80-100); Monocytes Absolute Auto 400 /uL (0-900); Monocytes Percent Auto 7.5 % (3-14); Neutrophils Absolute Auto 3700 /uL (1500-7000); Neutrophils Percent Auto 61.7 % (50-75); Platelet Count 192 X10^3/uL (150-400); Red Blood Cell Count 4.47 X10^6/uL (4.5-5.9)
[2025-01-04 17:52] LABS: INR 0.9 (0.9-1.3); Prothrombin Time 10.6 SECONDS (9.4-12.5)
[2025-01-04 17:59] LABS: Lactate (Lactic Acid) 0.8 mmol/L (0.7-2.1)
[2025-01-04 18:00] LABS: Alanine Aminotransferase 34 IU/L (<50); Albumin 4.7 g/dL (3.5-5.0); Alkaline Phosphatase 84 U/L (38-126); Aspartate Aminotransferase 38 IU/L (17-59); BUN Creatinine Ratio 23.9 (6-22); Bilirubin Total 0.6 mg/dL (0.2-1.3); Blood Urea Nitrogen 22 mg/dL (9-20); Calcium 9.2 mg/dL (8.4-10.2); Carbon Dioxide 27 mmol/L (22-32); Chloride 105 mmol/L (98-107); Estimated Glomerular Filt Rate > 60 mL/min (>60); Globulin 2.3 g/dL (1.7-4.1); Glucose 110 mg/dL (80-110); HEMOLYSIS 21 (0-50); Sodium 141 mmol/L (137-145)
[2025-01-04 18:12] LABS: NT-proBNP (BNP-Adult 18+) 85 pg/mL (<125); Troponin I < 0.012 ng/mL (0.01-0.034)
[2025-01-04 20:56] LABS: Bacteria Urine Occasional (0-1); Culture Indicated Urine Cult Not Indicated; RBC Urine 1-5/HPF (0-5/HPF); Squamous Epithelial Cell Urine 0-1 /HPF (0-5/HPF); Urine Volume 10mL (spun); WBC Urine 1-5/HPF (0-5/HPF)
--- NOTE | 2025-01-04 21:53 | ED_ITS ---
HPI - General Adult General Chief complaint: Weakness Stated complaint: PCP dehydration, fatigue, anemic SOB today only Time Seen by Provider: 01/04/25 21:43 Source: patient, RN notes reviewed and old records reviewed Mode of arrival: Ambulatory Limitations: no limitations History of Present Illness HPI narrative: 69-year-old male history of non-Hodgkin's lymphoma x2 not currently on treatment. Patient is currently under surveillance is followed every 6 months does take medication for hypertension and dyslipidemia and had ablation for WPW in 2014. Has felt unwell for about 2 months was diagnosed on December with pneumonia placed on amoxicillin and Z-Ulises but did not finish amoxicillin secondary to diarrhea. Patient states since then he was just felt very fatigued. He was not had fevers no chills. Denies any chest pain or shortness of breath had nausea initially after but that has not improved he was had what he describes some abdominal distention but no abdominal pain. He states he has a lot of diarrhea initially describes it as a fire hose in improved after stopping the amoxicillin after 2 days but he notes even in the morning he will have 3 bowel movements that he was described as more formed but a little bit loose than usually we will go throughout the day without any more. He states this is very atypical for him. He states no black or bloody stools that he was appreciated. No new urinary symptoms. He felt very lightheaded about a week ago from Saturday that he was dehydrated. He has not had any syncope no lightheadedness today. He is had not had any new swelling in his extremities. He was on losartan, diltiazem in his statin daily no aspirin or anticoagulants. He was had prior surgeries remotely of port placed and removed, had an ablation for WPW in 2014, appendectomy, no known drug allergies. No tobacco, occasional alcohol no recreational drugs. Dr. Balbuena is his primary care physician. He follows with Sean Munson for his oncology surveillance. Related Data Home Medications Medication Instructions Recorded Confirmed cholecalciferol (vitamin D3) 50 1 tab PO Q DAY ##0 09/26/17 12/16/24 mcg (2,000 unit) capsule (Vitamin D3) multivitamin (Multiple Vitamins 1 tab PO QDAY ##0 09/26/17 12/16/24 tablet) omeprazole 20 mg capsule,delayed 20 mg PO DAILY 09/06/20 12/16/24 release losartan 100 mg tablet 100 mg PO DAILY 11/08/22 12/16/24 Previous Rx's Medication Instructions Recorded acyclovir 400 mg tablet 400 mg PO BID PRN herpes #30 tabs 08/02/21 diltiazem HCl 180 mg capsule,24 180 mg PO BID #60 caps 06/04/23 hr,extended release sildenafil 25 mg tablet (Viagra) 25 mg PO DAILY PRN sexual activity 04/29/24 #30 tabs valacyclovir 500 mg tablet 500 mg PO DAILY #90 tabs 04/29/24 nirmatrelvir 300 mg (150 mg See Rx Instructions PO .COMPLEX 06/12/24 x2)-ritonavir 100 mg tablet,dose #30 ea pack (Paxlovid) hydroxyzine HCl 10 mg tablet 10 mg PO TID PRN anxiety #30 tabs 09/08/24 azithromycin 250 mg tablet See Rx Instructions PO .COMPLEX #6 12/16/24 tabs Allergies Allergy/AdvReac Type Severity Reaction Status Date / Time No Known Drug Allergies Allergy Verified 12/16/24 09:34 Review of Systems Review of Systems ROS Unobtainable: All systems reviewed & are unremarkable except as noted in HPI and below Patient History Medical History Iron deficiency anemia Barretts esophagus Fracture of right upper extremity (~1964) Skin problem (2004) Collapsed lung (1974) Chronic cough Herpes (~1979) Colon polyps (~2008) Hypertension (2005) Kidney stones (1991) Measles Mumps Hayfever Depression (2015) Anxiety (2015) Sleep apnea NHL (non-Hodgkin's lymphoma) (1999) WPW (Hhvvb-Dcjnjuedv-Yduik syndrome) (2009) Surgical History History of colonoscopy (~2008) Anesthesia History of surgery on arm (~1964) History of cardiac radiofrequency ablation (RFA) (2009) Status post appendectomy (~1959) Family History Child Cancer Brain cancer Father Cancer Cancer of jaw bone Grandfather Cancer Brain cancer Grandmother Cancer Grandmother Heart disease Heart attack Grandfather No problems noted. Mother Stroke Social History marital status: unknown household members: none occupational status: employed Smoking Status: Never smoker alcohol intake: current substance use type: does not use Smoking Status: Never smoker alcohol intake frequency: holidays/special occasions only Exam Narrative Exam Narrative: GENERAL: Alert and oriented x three, male mild distress. HEENT: Head normocephalic, atraumatic, EOMI, pupils reactive, face symmetric, moist mucous membranes NECK: Supple, full range of motion CARDIOVASCULAR: Regular rate and rhythm without murmurs, rubs or gallops. RESPIRATORY: Breath sounds equal bilaterally, no wheezes rales or rhonchi. ABDOMEN: Soft, nontender. Slightly distended. Normoactive bowel sounds all 4 quadrants. No guarding or rebound, rigidity, no mass : No CVA tenderness EXTREMITIES: Normal range of motion, no clubbing or edema. Neurovascularly intact NEUROLOGICAL: Cranial nerves II through XII grossly intact. Moving all extremities SKIN: Warm, dry, no petechiae, no rashes or lesions. Initial Vital Signs Initial Vital Signs: Vital Signs Temperature 97.7 F 01/04/25 17:21 Pulse Rate 86 01/04/25 17:21 Respiratory Rate 18 01/04/25 17:21 Blood Pressure 182/105 H 01/04/25 17:21 Pulse Oximetry 97 01/04/25 17:21 Oxygen Delivery Method Room Air 01/04/25 17:21 Course Orders Ordered: ED Orders 01/04/25 17:30 XR chest 1V Stat EKG-12 Lead Stat Measure peak expiratory flow ONCE RT Consult Eval and Treat NOW 01/04/25 17:35 Complete Blood Count AUTO DIFF Stat Comprehensive Metabolic Panel Stat Lactate (Lactic Acid) Stat NT-proBNP (BNP-Adult 18+) Stat Prothrombin Time INR Stat TSH [Thyroid Stimulating Hormone] Stat Troponin I Stat 01/04/25 20:30 Urine Culture Stat Urine Microscopic Stat Vital Signs Vital signs: Vital Signs - 8 hr 01/04/25 18:45 01/04/25 18:47 01/04/25 18:47 Pulse Rate 84 78 Blood Pressure 187/100 H Pulse Oximetry 97 97 Oxygen Delivery Method 01/04/25 19:00 01/04/25 19:00 01/04/25 19:30 Pulse Rate 76 71 Blood Pressure 167/95 H Pulse Oximetry 95 94 Oxygen Delivery Method 01/04/25 19:30 01/04/25 20:00 01/04/25 20:00 Pulse Rate 63 Blood Pressure 156/90 H 155/93 H Pulse Oximetry 94 Oxygen Delivery Method 01/04/25 20:28 01/04/25 20:28 01/04/25 20:30 Pulse Rate 71 71 Blood Pressure 165/91 H Pulse Oximetry 97 96 Oxygen Delivery Method 01/04/25 21:00 01/04/25 21:30 01/04/25 22:00 Pulse Rate 71 74 78 Blood Pressure Pulse Oximetry 97 94 96 Oxygen Delivery Method Room Air 01/04/25 22:30 Pulse Rate 78 Blood Pressure 144/76 H Pulse Oximetry 95 Oxygen Delivery Method Medical Decision Making Lab Data 01/04/25 17:35 01/04/25 17:35 Labs: Lab Results 01/04/25 01/04/25 Range/Units 17:35 20:30 WBC 6.0 (4.5-11.0) X10^3/uL RBC 4.47 L (4.5-5.9) X10^6/uL Hgb 14.3 (13.5-17.5) g/dL Hct 42.6 (41-53) % MCV 95.2 (80-100) fL MCH 32.0 (26-34) PG MCHC 33.6 (30-36) % RDW 14.0 (11.6-14.8) % Plt Count 192 (150-400) X10^3/uL Neut % (Auto) 61.7 (50-75) % Lymph % (Auto) 25.6 (25-40) % [place] % (Auto) 7.5 (3-14) % Eos % (Auto) 4.2 H (2-4) % Baso % (Auto) 1.0 (0-2) % Neut # (Auto) 3700 (0952-4934) /uL Lymph # (Auto) 1500 (9964-1089) /uL [place] # (Auto) 400 (0-900) /uL Eos # (Auto) 200 (0-450) /uL Baso # (Auto) 100 (0-100) /uL PT 10.6 (9.4-12.5) SECONDS INR 0.9 (0.9-1.3) Sodium 141 (137-145) mmol/L Potassium 4.0 (3.4-5.1) mmol/L Chloride 105 (98-107) mmol/L Carbon Dioxide 27 (22-32) mmol/L BUN 22 H (9-20) mg/dL Creatinine 0.92 (0.66-1.25) mg/dL Estimated GFR > 60 (>60) mL/min BUN/Creatinine Ratio 23.9 H (6-22) Glucose 110 (80-110) mg/dL Lactate 0.8 (0.7-2.1) mmol/L Calcium 9.2 (8.4-10.2) mg/dL Total Bilirubin 0.6 (0.2-1.3) mg/dL AST 38 (17-59) IU/L ALT 34 (<50) IU/L Alkaline Phosphatase 84 (38-126) U/L Troponin I < 0.012 (0.01-0.034) ng/mL NT-Pro-B Natriuret Pep 85 (<125) pg/mL Total Protein 7.0 (6.3-8.2) g/dL Albumin 4.7 (3.5-5.0) g/dL Globulin 2.3 (1.7-4.1) g/dL Albumin/Globulin Ratio 2.0 (1.0-2.8) TSH 3.13 (0.47-4.68) uIU/mL Urine RBC 1-5/hpf (0-5/HPF) Urine WBC 1-5/hpf (0-5/HPF) Ur Squamous Epith Cells 0-1 /hpf (0-5/HPF) Urine Bacteria Occasional (0-1) (None) Ur Culture Indicated? Cult not indicated Vol Urine Centrifuged 10ml (spun) Urine Dip Bedside Urine Glucose Negative Bedside Urine Bilirubin - Negative Bedside Urine Ketone - Negative Urine Specific Parker 1.015 Bedside Urine Occult Blood +/- Bedside Urine pH 6.0 Bedside Urine Protein - Negative Bedside Urine Urobilinogen - Negative Bedside Urine Nitrite - Negative Bedside Urine Leukocytes - Negative Esterase Point of care testing: Urine Dip Bedside Urine Glucose Negative Bedside Urine Bilirubin - Negative Bedside Urine Ketone - Negative Urine Specific Parker 1.015 Bedside Urine Occult Blood +/- Bedside Urine pH 6.0 Bedside Urine Protein - Negative Bedside Urine Urobilinogen - Negative Bedside Urine Nitrite - Negative Bedside Urine Leukocytes - Negative Esterase ECG Data Attestation: I personally reviewed and interpreted this ECG as follows: Prior ECG tracings: available for review Interpretation: EKG shows sinus rhythm left axis deviation rate of 76 [place] 160 QRS of 106 QTC of [address] elevation depression.? Patient was prior from 05/01/2023 which appears similar. [facility] Narrative Medical decision making narrative: Labs show white count of 6 hemoglobin of 14 platelets of 192, INR 1 electrolytes are appropriate BUN 22 creatinine 0.92 glucose is 110 these are negative troponins less than 0.012 with a BNP 85. TSH is 3.13. Point of care urine shows blood. Urine micro shows 1-5 red cells 1-5 white 1 squamous 1 bacteria culture not indicated. Chest x-ray shows no acute change. EKG shows sinus rhythm left axis deviation rate of 76 [place] 160 QRS of 106 QTC of [address] elevation depression. Patient was prior from 05/01/2023 which appears similar. Patient has echo from 07/01/2024 with normal LV with function of 55-60% normal right ventricle size and function mild aortic regurg ascending aorta is mildly enlarged at [address] of his chest/abdomen/pelvis on 10/30/2022 which had that time was negative for acute change. 69-year-old male history of non-Hodgkin's lymphoma x2 has been treated under surveillance with no recurrence also history of WPW with the ablation in 2014 without any reoccurrence hypertension dyslipidemia notes he is felt unwell for about 2 months was diagnosed with pneumonia clinically and was treated with the amoxicillin azithromycin developed quite a bit of diarrhea amoxicillin he was stopped it but completed the azithromycin. Diarrhea is improved but it still has more frequent stools daily which he describes as mostly formed. Patient has had decreased energy been fatigued. Discussed with patient we will send TSH feels comfortable returning home rather than waiting for this. Eleven follow up with primary care for further workup but no acute emergent cause found today. Did discuss getting a GI panel or C diff. Seems less likely has a stools have become more formed but he is still having some frequency. Patient not able to give a sample here states he thinks that is probably less likely but we will follow up with PCP. Discussed return precautions Discharge Plan Departure Patient Disposition: Home Clinical Impression: Fatigue Activity Restrictions/Additional Instructions: Please follow up with Dr. Lackey, you do have a TSH pending. Please follow up these results with her or check in the patient portal. I do think he would benefit from follow up for further evaluation. As discussed if you are having persistent diarrhea talk with Dr. Lackey about having a C diff or GI panel checked. Please return for fevers, new chest pain or shortness of breath, new abdominal back or flank pain, vomiting, black or bloody stools, new swelling of your extremities or other new or concerning changes. Prescriptions: No Action omeprazole 20 mg capsule,delayed release(DR/EC) 20 mg PO DAILY losartan 100 mg tablet 100 mg PO DAILY Rx Instructions: Take one tab daily - patient added additional 1 tab every 3 days due to elevated BP valacyclovir 500 mg tablet 500 mg PO DAILY Qty: 90 3RF sildenafil [Viagra] 25 mg tablet 25 mg PO DAILY PRN (Reason: sexual activity) Qty: 30 2RF Rx Instructions: administer 30 minutes to 4 hours before activity diltiazem HCl 180 mg capsule,extended release 24 hr 180 mg PO BID Qty: 60 3RF azithromycin 250 mg tablet See Rx Instructions PO .COMPLEX Qty: 6 0RF Rx Instructions: take 500 mg today (day 1), then 250 mg for 4 days (days 2-5) PO multivitamin [Multiple Vitamins] 1 EACH tablet 1 tab PO QDAY Qty: 0 cholecalciferol (vitamin D3) [Vitamin D3] 2,000 UNIT capsule 1 tab PO Q DAY Qty: 0 acyclovir 400 mg tablet 400 mg PO BID PRN (Reason: herpes) Qty: 30 1RF Paxlovid 300 mg (150 mg x 2)-100 mg tablets,dose pack See Rx Instructions PO .COMPLEX Qty: 30 0RF Rx Instructions: take TWO 150 mg tablets of nirmatrelvir with ONE 100 mg tablet of ritonavir twice daily for 5 days PO hydroxyzine HCl 10 mg tablet 10 mg PO TID PRN (Reason: anxiety) Qty: 30 2RF Referrals: Laura Lackey MD [Primary Care Provider] - Stand Alone Forms: Patient Portal/API/Survey
[2025-01-04 23:08] LABS: Thyroid Stimulating Hormone 3.13 uIU/mL (0.47-4.68)
== END 2025-01-04 22:35 | disposition home or self-care (01) ==
PROVIDERS: Emergency Medicine; Emergency Provider Emergency Medicine; Family Provider Family Medicine; PCP Family Medicine
DX: R53.83 Other fatigue (principal); R19.7 Diarrhea, unspecified; Z85.72 Personal history of non-Hodgkin lymphomas; Z87.01 Personal history of pneumonia (recurrent)
CPT/HCPCS: 36415; 71045; 80053; 81003; 81015; 83605; 83880; 84443; 84484; 85025; 85610; 87086; 93005; 99283; 99284

== ENCOUNTER → 2025-08-30 06:48 | Outpatient (CLI) | payer MEDICARE, OTHER, SELFPAY | PROVIDERS: Family Provider Family Medicine; PCP Family Medicine; Referring Provider Family Medicine; Visit Provider Family Medicine | DX: T78.40XA Allergy, unspecified, initial encounter (principal); R05.9 Cough, unspecified | CPT/HCPCS: 36415 ==

== ENCOUNTER 2025-09-06 12:04 | Day surgery (SDC) | payer MEDICARE, OTHER, SELFPAY ==
[2025-09-01 13:50] VITALS: BMI 28.8
--- NOTE | 2025-09-06 | PATH_ITS ---
[facility] Accession Number: [id number] No. of containers..01 Tissue . 01 Material submitted: . esophagus - ESOPHAGUS AT 40 . 01 Diagnosis: ESOPHAGUS AT 40 CM, BIOPSY: Squamocolumnar junctional mucosa with focal specialized intestinal metaplasia, consistent with Swenson's esophagus. Focal mild glandular atypia in an area of active inflammation, indefniite for dysplasia. No evidence of malignancy. [facility] 09/14/2025 1619 Local . 01 Comment: As part of routine supervisor type disk quality control, Dr. Bashir has reviewed this case and agrees with the diagnosis of Swenson's esophagus, indefinite for dysplasia. . 01 Electronically signed: . Slim Musa MD, PhD, Pathologist NPI- [id number] . 01 Gross description: . Received is one formalin-filled container labeled with the patient's name and labeled esophageal biopsies at 40, are three fragments of velasquez, soft tissue which range in size from 0.1 x 0.1 x 0.1 cm to 0.4 x 0.3 x 0.2 cm. All fragments are totally submitted in cassette A1. ([id number]) /[facility] 09/09/2025 0126 Local . 01 Microscopic: . Sections are of squamocolumnar junctional mucosa with a small focus of goblet cell metaplasia. This focus of interest is seen on deeper levels, but is not present on an attempted alcian blue stain. A control stain shows appropriate reactivity. . 01 Pathologist provided ICD-10: K22.710 . 01 CPT . 445653, 340519 Specimen Comment: A courtesy copy of this report has been sent to [phone] Performed at: [address] [address], [place], [place] [id number] MD Donavan Bashir MD Phone: [phone]
--- NOTE | 2025-09-06 12:11 | PM.HP.IH.1 ---
History of Present Illness History of Present Illness Date Patient Seen: 09/06/25 Chief complaint: [facility] Narrative: History of Barretts esophagus and need for colorectal cancer screening. [facility] Medical History Postoperative nausea and vomiting Iron deficiency anemia Barretts esophagus Fracture of right upper extremity (~1965) Skin problem (2004) Collapsed lung (1974) Chronic cough Herpes (~1979) Colon polyps (~2008) Hypertension (2005) Kidney stones (1991) Measles Mumps Hayfever Depression (2016) Anxiety (2016) Sleep apnea NHL (non-Hodgkin's lymphoma) (1999) WPW (Fxkqu-Rvyzckyrb-Bfgao syndrome) (2009) Surgical History History of colonoscopy (~2008) Anesthesia History of surgery on arm (~1964) History of cardiac radiofrequency ablation (RFA) (2009) Status post appendectomy (~1960) Family History Child Cancer Brain cancer Father Cancer Cancer of jaw bone Grandfather Cancer Brain cancer Grandmother Cancer Grandmother Heart disease Heart attack Grandfather No problems noted. Mother Stroke Social History marital status: unknown household members: none occupational status: employed alcohol intake: current substance use type: does not use Meds Home Medications and Allergies Home Medications ?Medication ?Instructions ?Recorded ?Confirmed ?Type cholecalciferol (vitamin D3) 50 1 tab PO Q DAY ##0 09/26/17 09/02/25 History mcg (2,000 unit) capsule (Vitamin D3) multivitamin (Multiple Vitamins 1 tab PO QDAY ##0 09/26/17 09/02/25 History tablet) omeprazole 20 mg capsule,delayed 20 mg PO DAILY 09/06/20 09/02/25 History release losartan 100 mg tablet 100 mg PO DAILY 11/08/22 09/02/25 History diltiazem HCl 180 mg capsule,24 180 mg PO BID #60 caps 06/04/23 09/02/25 Rx hr,extended release valacyclovir 500 mg tablet 500 mg PO DAILY #90 tabs 05/07/25 09/02/25 Rx sildenafil 25 mg tablet (Viagra) 25 mg PO DAILY PRN sexual activity 07/20/25 09/02/25 Rx #30 tabs hydroxyzine HCl 10 mg tablet 10 mg PO TID PRN anxiety #30 tabs 08/13/25 09/02/25 Rx Allergies Allergy/AdvReac Type Severity Reaction Status Date / Time amoxicillin (From Augmentin) AdvReac Intermediate Diarrhea Verified 09/02/25 15:28 clavulanic acid (From AdvReac Intermediate Diarrhea Verified 09/02/25 15:28 Augmentin) Exam Narrative Exam Narrative: Oropharynx free of lesions Chest clear to auscultation percussion Cardiac exam reveals no S3 or murmur Assessment & Plan Assessment & Plan narrative: Barretts esophagus and need for colorectal cancer screening. Risks, benefits, and alternatives have been explained for both EGD and colonoscopy. Time-Based Coding :: [TOTAL MINUTES] spent with patient and on the chart (including review of chart, obtaining history, exam, reviewing outside data, placing orders, documenting exam and treatment plan, and counseling patient) on [DATE]. PROFEE Assistant Winemaker Document charge(s): No
--- NOTE | 2025-09-06 12:13 | PM.OP.EC ---
Operative Date/Time/Diagnoses Date of procedure: 09/06/25 Time of procedure: 14:21 Pre-op diagnosis: History of Barretts esophagus Post-op diagnosis: same Procedure & Clinicians Study performed: EGD and colonoscopy Same procedure(s) as scheduled: No Indications: EGD for history of Barretts esophagus and colonoscopy for screening Surgeon: Prabha Rashid Anesthesia Type: Other Procedure Notes Procedure in detail: After informed consent was obtained the patient was placed in left lateral decubitus position. The video upper scope was placed into the oropharynx and with the patient's help swallowed into the esophagus. The esophagus stomach and duodenal were carefully examined. On withdrawal, retroflexed view the GE junction was performed. The scope was removed. The patient tolerated procedure well. The patient was then turned and the colonoscope substituted. This easily passed through the rectum to the cecum. Preparation was good. On slow withdrawal mucosa was carefully examined. The scope was removed. The patient tolerated the procedure well. Blood loss none Complications none Sedation mac Findings EGD One. Significant redness of the mucosa at the GE junction. Despite this initially looking large only a couple of areas leanne above the level of the GE folds. Biopsies were taken of those 2 areas that were from 30/9 to 40 cm and placed in 1 bottle. 2. Normal stomach 3. Normal duodenal bulb and sweep Colonoscopy 1. Normal colonoscopy to cecum Is ears stay in his medication until we get pathology back. He should have follow-up EGD in 1 year in follow-up colonoscopy in 5-7 years Estimated Blood Loss: 0 Complications: none
[2025-09-06 13:03] VITALS: BP 161/79; PULSE 75; RESP 18; TEMP 36.1; O2SAT 99
[2025-09-06] MEDS: LACTATED RINGERS 1,000 ML 42 ML IV (13:26)
[2025-09-06 14:22] VITALS: BP 122/72; PULSE 79; RESP 15; TEMP 36.2; O2SAT 97
== END 2025-09-06 15:03 | disposition home or self-care (01) ==
PROVIDERS: PCP Family Medicine; Referring Provider Family Medicine; Visit Provider Internal Medicine Gastroenterology
PROC: 0DJ08ZZ Inspection of Upper Intestinal Tract, Via Natural or Artificial Opening Endoscopic (ICD-10-PCS; CPT 43239; principal; 2025-09-06 13:30)
PROC: 0DJD8ZZ Inspection of Lower Intestinal Tract, Via Natural or Artificial Opening Endoscopic (ICD-10-PCS; CPT 45378; 2025-09-06 13:30)
DX: Z12.11 Encounter for screening for malignant neoplasm of colon (principal); K22.70 Barrett's esophagus without dysplasia; I10 Essential (primary) hypertension; K21.9 Gastro-esophageal reflux disease without esophagitis; Z85.72 Personal history of non-Hodgkin lymphomas
CPT/HCPCS: 43239; G0121; J2704; J7120